=== PATIENT | female | born 1965 | race Caucasian/White ===

== ENCOUNTER 2018-12-25 23:46 | Inpatient (IN) | payer OTHER ==
[~2018-12-25] VITALS: Ht 162.6 cm; Wt 62.2 kg
[~2018-12-25 23:46] MED LIST: ALLO300T2 PO; FER325 PO; FOLI-49 PO; LEVE750T70 PO; LORA-1026 PO; MULT1CAP20 PO; OMEP20CA16 PO; PHEN100C PO; SERT-165 PO; SEVE800T7 PO; THIA50TA7 PO
[2018-12-26] MEDS ORDERED: LORAZEPAM 2 MG INJ IV STA (00:01)
[2018-12-26] MEDS ORDERED: SOD CHLORIDE 0.9% 1,000 ML IV STA (00:25)
--- NOTE | 2018-12-26 03:24 | ERD ---
ER Documentation Chief Complaint Chief Complaint bib ra from home for altered, no trauma as per fire department, HPI This is a 53-year-old patient with a history of seizure disorder who was brought in for altered mental status. The patient is here with her mom who says that they were at a local doctor's office clinic and patient was going in for a checkup, the patient's mom left the room for a brief period and came back to the room and the patient was acting altered. The patient was very confused and not making any sense. The patient did not know where she was or who the patient's mom was or where she was. She did have alcohol today. Denies any drug use per mom. Patient is not combative or acting grossly intoxicated however she is on making any sense. The mom states that the patient got a letter today stating she is going to be cut off from food stamps and was completely stressed out about this issue. ROS All systems reviewed and are negative except as per history of present illness. Medications Home Meds Reported Medications Multivitamins* (Multivitamin*) 1 Udcap Capsule, 1 TAB PO DAILY, TAB 09/13/14 Folic Acid* (Folic Acid*) 1 Mg Tablet, 1 MG PO DAILY, TAB 09/13/14 Levetiracetam* (Keppra*) 750 Mg Tablet, 1500 MG PO BID, TAB 09/13/14 Phenytoin* Sodium Extended (Dilantin*) 100 Mg Capsule, 100 MG PO BID 04/13/12 Allergies Allergies: Coded Allergies: No Known Allergy (Unverified , 09/13/14) PMhx/Soc History of Surgery: No Anesthesia Reaction: No Hx Neurological Disorder: No Hx Respiratory Disorders: No Hx Cardiac Disorders: No Hx Psychiatric Problems: No Hx Miscellaneous Medical Probl: No Hx Alcohol Use: Yes Hx Substance Use: Yes Hx Tobacco Use: No Smoking Status: Never smoker FmHx Family History: No coronary disease Physical Exam Vitals Vital Signs Date Temp Pulse Resp B/P (MAP) Pulse Ox O2 O2 Flow FiO2 Time Delivery Rate 12/26/18 106 18 147/92 98 02:33 (110) 12/26/18 98.6 112 26 147/103 100 Room Air 00:47 (118) 12/26/18 98.6 131 26 147/103 100 00:02 (118) 12/26/18 97.7 122 17 123/103 99 00:00 (110) Physical Exam Const: Well-developed, well-nourished Head: Atraumatic, normocephalic Eyes: Normal Conjunctiva, PERRLA, EOMI, normal sclera, no nystagmus ENT: Normal External Ears, Nose and Mouth, moist mucus membranes. Neck: Full range of motion. No meningismus, no lymphadenopathy. Resp: Clear to auscultation bilaterally, no wheezing, rhonchi, rales Cardio: Regular rate and rhythm, no murmurs, S1 S2 present Abd: Soft, non tender x 4, non distended. Normal bowel sounds, no guarding or rebound, no pulsitile abdominal masses or bruits Skin: No petechiae or rashes, no ecchymosis , no maculopapular rash Back: No midline or flank tenderness Ext: No cyanosis, or edema, FROM x 4, normal inspection, neurovascularly intact x 4 Neur: Awake and alert, STR 5/5 x 4, sensation intact x 4, no focal findings, cerebellum intact Psych: Patient is having complete inappropriate answers to questions that make no sense whatsoever, word salad/but has clear speech no slurring, she will follow commands Result Diagram: 12/26/18 0050 12/26/18 0050 Results 24 hrs Laboratory Tests Test 12/26/18 00:50 White Blood Count 7.4 10^3/ul Red Blood Count 3.38 10^6/ul Hemoglobin 11.8 g/dl Hematocrit 32.6 % Mean Corpuscular Volume 96.4 fl Mean Corpuscular Hemoglobin 34.9 pg Mean Corpuscular Hemoglobin Concent 36.2 g/dl Red Cell Distribution Width 12.2 % Platelet Count 205 10^3/UL Mean Platelet Volume 10.5 fl Immature Granulocytes % 0.400 % Neutrophils % 66.8 % Lymphocytes % 23.1 % Monocytes % 7.6 % Eosinophils % 1.4 % Basophils % 0.7 % Nucleated Red Blood Cells % 0.0 /100WBC Immature Granulocytes # 0.030 10^3/ul Neutrophils # 5.0 10^3/ul Lymphocytes # 1.7 10^3/ul Monocytes # 0.6 10^3/ul Eosinophils # 0.1 10^3/ul Basophils # 0.1 10^3/ul Nucleated Red Blood Cells # 0.0 10^3/ul Prothrombin Time 13.7 Sec Prothrombin Time Ratio 1.1 INR International Normalized Ratio 1.04 Activated Partial Thromboplast Time 25.6 Sec Sodium Level 127 mmol/L Potassium Level 3.8 mmol/L Chloride Level 84 mmol/L Carbon Dioxide Level 26 mmol/L Anion Gap 17 Blood Urea Nitrogen 10 mg/dl Creatinine 0.81 mg/dl Est Glomerular Filtrat Rate mL/min > 60 mL/min Glucose Level 107 mg/dl Calcium Level 8.9 mg/dl Total Bilirubin 0.7 mg/dl Direct Bilirubin 0.00 mg/dl Indirect Bilirubin 0.7 mg/dl Aspartate Amino Transf (AST/SGOT) 91 IU/L Alanine Aminotransferase (ALT/SGPT) 27 IU/L Alkaline Phosphatase 172 IU/L Troponin I < 0.012 ng/ml Total Protein 8.2 g/dl Albumin 4.7 g/dl Globulin 3.50 g/dl Albumin/Globulin Ratio 1.34 Salicylates Level 1.1 mg/dl Acetaminophen Level < 10.0 ug/ml Ethyl Alcohol Level < 10.0 mg/dl Current Medications Medications Dose Sig/Elver Start Time Status Last (Trade) Ordered Route PRN Stop Time Admin Dose Reason Admin Lorazepam 1 mg ONCE STAT 12/26/18 DC 12/26/18 (Ativan) IV 00:01 00:46 12/26/18 00:03 Sodium 1,000 ml @ Q1H STAT 12/26/18 DC 12/26/18 Chloride 1,000 mls/hr IV 00:25 00:47 12/26/18 01:24 Procedures/[place] [id number] Radiology Main Line: [phone] DIAGNOSTIC IMAGING REPORT Patient: MARTHA CENTENO : 1965 Age: 53 Sex: F MR #: [id number] DOS: 12/26/18 0001 Ordering MD: CARLTON CHADWICK DO Location: E/R Room/Bed: PROCEDURE: CT brain without contrast. CLINICAL INDICATION: Altered mental status. TECHNIQUE: CT scan of the brain was performed on a multi-detector high- resolution CT scanner. Contiguous axial images were obtained from the skull base to the vertex without intravenous contrast. Coronal and sagittal reformatted images were also obtained. Images were reviewed on the PACS workstation. DICOM images are available. One or more of the following dose reduction techniques were used: - Automated exposure control. - Adjustment of the mA and/or kV according to patient size. - Use of iterative reconstruction technique. Exam CTD/vol = 38.81 mGy. Total exam DLP = 797.83 mGy-cm. COMPARISON: 09/13/2014. FINDINGS: The ventricles and cortical sulci are prominent consistent with mild to moderate age related volume loss. There are patchy areas of low attenuation within the periventricular and subcortical white matter consistent with mild to moderate chronic ischemic changes secondary to small vessel disease. There is no mass effect or midline shift. There is no intracranial hemorrhage or abnormal extra- axial collection. There are atherosclerotic calcifications within bilateral distal internal carotid arteries. The calvarium is intact. There is no evidence of fracture. Visualized paranasal sinuses and mastoid air cells are clear. IMPRESSION: No acute intracranial abnormality identified. Mild to moderate age related volume loss and chronic ischemic white matter disease. Cerebral atherosclerosis. .Julio Wang MD, MD Date Time Electronically viewed and signed by .Julio Wang MD, MD on 12/26/2018 01:34 .T/ CC: CARLTON CHADWICK DO [id number] [place] [address] Radiology Main Line: [phone] DIAGNOSTIC IMAGING REPORT Patient: MARTHA CENTENO : 1965 Age: 53 Sex: F MR #: [id number] DOS: 12/26/18 0001 Ordering MD: CARLTON CHADWICK DO Location: E/R Room/Bed: PROCEDURE: Chest. CLINICAL INDICATION: Chest pain. TECHNIQUE: Single frontal view of the chest was obtained. COMPARISON: None. FINDINGS: The cardiac silhouette is within normal limits. The aortic arch is unremarkable. There is no focal consolidation, vascular congestion or pleural effusion. There is no pneumothorax. IMPRESSION: No evidence for active cardiopulmonary disease. .Julio Wang MD, Date Time Electronically viewed and signed by .Julio Wang MD, MD on 12/26/2018 01:29 .T/ CC: CARLTON CHADWICK DO [id number] Patient's alcohol level is 0 am still pending the urine drug screen which is in lab. She does have some mild hyponatremia but I do not think insulin to cause any mental status disturbance. She may just be on drugs. She is been observed here for a few hours and is still the same. She is asleep but arousable and has a same presentation as when she came in. Likely need to admit her to the hospital for observation to see if this clears up she may need further work-up/MRI. Is possible she could have had a seizure but by this time this postictal state would have gone away. Mom states that the patient's never had a postictal state like this before Departure Diagnosis: Primary Impression: Altered mental status Altered mental status type: unspecified Qualified Codes: R41.82 - Altered mental status, unspecified Condition: Stable CARLTON CHADWICK DO Dec 26, 2018 03:24
[2018-12-26] MEDS ORDERED: SOD CHLORIDE 0.9% 1,000 ML IV SCH (04:03)
[2018-12-26] MEDS ORDERED: ACETAMINOPHEN 325 MG TAB PO PRN (04:30)
[2018-12-26] MEDS ORDERED: NACL 0.9% 3 ML SYG IV SCH (04:30)
[2018-12-26] MEDS ORDERED: BISACODYL (EC) 5 MG TAB PO PRN (04:30)
[2018-12-26] MEDS ORDERED: DOCUSATE SODIUM 100 MG CAP PO PRN (04:30)
[2018-12-26] MEDS ORDERED: ONDANSETRON 4 MG INJ IV PRN ×2 (04:30)
[2018-12-26] MEDS ORDERED: LORAZEPAM 2 MG INJ IV ONE (05:00)
--- NOTE | 2018-12-26 05:49 | HP ---
Date/Time of Note Date/Time of Note DATE: 12/26/18 TIME: 05:43 Assessment/Plan VTE Prophylaxis SCD applied (from Nsg): Yes Pharmacological prophylaxis: NA/contraindicated Pharm contraindication: low risk/ambulating Lines/Catheters IV Catheter Type (from Nrsg): Saline Lock Assessment/Plan Hospital Course This is a 53 female being admitted to the telemetry floor for: 1. Acute encephalopathy: Secondary to CVA versus alcohol intoxication/withdrawal versus toxic metabolic versus versus Wernicke's encephalopathy versus other. Patient appears agitated and also not making any sense with her words. She was not able to be cooperative on neurological examination. Banana bag, high-dose thiamine x3 days. Will perform neuro checks every 4 hours. Fall precautions, seizure precautions. We will check Keppra and Dilantin levels. Resume Keppra and Dilantin. Will check an MRI of the brain, will add Ativan as needed and is patient's mother states she is claustrophobic. Will consult neurology . 2. Seizure disorder: Fall precautions, will check Keppra and Dilantin levels. Resume Keppra and Dilantin. 3. Hyponatremia: Patient does appear to be dehydrated. There may be a comp onent of SIADH as well and she is on Keppra. Will hydrate the patient with normal saline. Monitor sodium levels. In light of her seizure disorder will continue Keppra. Will monitor sodium levels. 4. Alcohol abuse: Patient reportedly drinks 1 pint of day. Also concern for possible Wernicke's encephalopathy. High-dose thiamine 500 mg IV every 8 hours x3 days. Banana bag. Folic acid and MVI once patient is tolerating p.o. 5. Normocytic anemia: We will check iron stores, no signs of bleeding. 6. Right eye blindness: Stable 7. DVT GI prophylaxis: SCDs, no GI prophylaxis indicated Further treatment strategy will be implemented as per clinical course Result Diagram: 12/26/18 00512/26/18 005 Results 24hrs Laboratory Tests Test 12/26/18 00:50 12/26/18 05:10 12/26/18 05:30 White Blood Count 7.4 Pending Red Blood Count 3.38 L Pending Hemoglobin 11.8 L Pending Hematocrit 32.6 L Pending Mean Corpuscular Volume 96.4 Pending Mean Corpuscular Hemoglobin 34.9 H Pending Mean Corpuscular Hemoglobin Concent 36.2 Pending Red Cell Distribution Width 12.2 Pending Platelet Count 205 Pending Mean Platelet Volume 10.5 H Pending Immature Granulocytes % 0.400 Neutrophils % 66.8 Lymphocytes % 23.1 Monocytes % 7.6 Eosinophils % 1.4 Basophils % 0.7 Nucleated Red Blood Cells % 0.0 Immature Granulocytes # 0.030 Neutrophils # 5.0 Lymphocytes # 1.7 Monocytes # 0.6 Eosinophils # 0.1 Basophils # 0.1 Nucleated Red Blood Cells # 0.0 Prothrombin Time 13.7 Prothrombin Time Ratio 1.1 INR International Normalized Ratio 1.04 Activated Partial Thromboplast Time 25.6 Sodium Level 127 L Potassium Level 3.8 Chloride Level 84 L Carbon Dioxide Level 26 Anion Gap 17 H Blood Urea Nitrogen 10 Creatinine 0.81 Est Glomerular Filtrat Rate mL/min > 60 Glucose Level 107 Calcium Level 8.9 Total Bilirubin 0.7 Direct Bilirubin 0.00 Indirect Bilirubin 0.7 Aspartate Amino Transf (AST/SGOT) 91 H Alanine Aminotransferase (ALT/SGPT) 27 Alkaline Phosphatase 172 H Troponin I < 0.012 Total Protein 8.2 H Albumin 4.7 Globulin 3.50 H Albumin/Globulin Ratio 1.34 Salicylates Level 1.1 L Acetaminophen Level < 10.0 L Ethyl Alcohol Level < 10.0 H Urine Color YELLOW Urine Clarity CLEAR Urine pH 6.0 Urine Specific [place] 1.004 Urine Ketones TRACE A Urine Nitrite NEGATIVE Urine Bilirubin NEGATIVE Urine Urobilinogen NEGATIVE Urine Leukocyte Esterase TRACE A Urine Microscopic RBC 2 Urine Microscopic WBC 6 H Urine Bacteria FEW A Urine Hemoglobin 1+ H Urine Glucose NEGATIVE Urine Total Protein NEGATIVE Urine Opiates Screen Negative Urine Barbiturates Negative Urine Amphetamines Screen Negative Urine Benzodiazepines Screen Negative Urine Cocaine Screen Negative Urine Cannabinoids Negative HPI/ROS Admit Date/Time Admit Date/Time Hx of Present Illness Chief complaint: Altered mental status Following history was obtained from the ED physician documentation as well as from the mother of the patient at the bedside as patient was not able to provide history given her altered status This is a 53-year-old patient with a history of seizure disorder who was brought in for altered mental status. The patient is here with her mom who says that they were at a local doctor's office clinic and patient was going in for a checkup, the patient's mom left the room for a brief period and came back to the room and the patient was acting altered. The patient was very confused and not making any sense. The patient did not know where she was or who the patient's mom was or where she was. She did drink alcohol at home which she does every day. She drinks normally a pint. Patient seemed to be more confused overnight and was brought into the emergency department. Denies any drug use per mom. Patient is not combative or acting grossly intoxicated however she is on making any sense. The mom does report that approximately 1 week ago she got a letter stating that she needs further documentation and a doctor's evaluation for her to continue to get food stamps. Her mother states that when this happened she went into a panic. She states that during the week she did have a seizure as well but then returned back to her normal state until last night. Mom does report that she drinks approximately 1 pint of alcohol daily Allergies: NKDA Medications: See MAR ROS Subjective hx not possible: other (Patient is altered, unable to provide history) PMH/Family/Social Past Medical History Seizure disorder, alcoholism, right eye blindness Medications Current Medications Sodium Chloride 1,000 ml @ 80 mls/hr [id number] IV ; Start 12/26/18 at 04:03; Stop 12/26/18 at 16:32 Ondansetron HCl (Zofran Inj) 4 mg ER BRIDGE PRN IV NAUSEA/VOMITING; Start 12/26/18 at 04:30; Stop 12/27/18 at 04:29 Acetaminophen (Tylenol Tab) 650 mg ER BRIDGE PRN PO .MILD PAIN 1-3 OR TEMP; Start 12/26/18 at 04:30; Stop 12/27/18 at 04:29 IV Flush (NS 3 ml) 3 ml PER PROTOCOL IV ; Start 12/26/18 at 04:30 Ondansetron HCl (Zofran Inj) 4 mg Q6H PRN IV NAUSEA/VOMITING; Start 12/26/18 at 04:30 Acetaminophen (Tylenol Tab) 650 mg Q6H PRN PO .PAIN 1-3 OR TEMP; Start 12/26/18 at 04:30 Docusate Sodium (Colace) 100 mg Q12H PRN PO .CONSTIPATION; Start 12/26/18 at 04:30 Bisacodyl (Dulcolax) 5 mg DAILY PRN PO .CONSTIPATION; Start 12/26/18 at 04:30 Coded Allergies: No Known Allergy (Unverified , 09/13/14) Past Surgical History Unknown Social History Alcohol Use: heavy Smoking Status: Never smoker Drug Use: none Exam/Review of Systems Vital Signs Vitals Vital Signs Date Temp Pulse Resp B/P (MAP) Pulse Ox O2 O2 Flow FiO2 Time Delivery Rate 12/26/18 110 16 134/96 96 Room Air 04:02 (109) 12/26/18 98.6 00:47 Exam Exam General: Patient is currently lying in bed, when she is awoken her words are clear but they are not making any sense. HEENT: Atraumatic, normocephalic. The pupils are equal, round and reactive, right eye blindness Neck: Supple with full range of motion. No rigidity or meningismus Chest: Nontender Lungs: Clear to auscultation bilaterally no crackles rales or wheezing Heart: Sinus tachycardia Abdomen: Soft , nontender, nondistended , bowel sounds are present. No guarding no rebound tenderness , No masses or organomegaly. No costovertebral temporal angle mass Extremities: Normal to inspection, no edema no cyanosis Neurologic: Lethargic but easily arousable. Her words are clear but she is not making any sense. She does appear to spontaneously move her bilateral upper and lower extremities but she does not follow commands and therefore is unable to participate in a full neurological examination. Psych:Unsure whether patient is responding to any internal stimuli. Additional Comments PROCEDURE: CT brain without contrast. CLINICAL INDICATION: Altered mental status. TECHNIQUE: CT scan of the brain was performed on a multi-detector high- resolution CT scanner. Contiguous axial images were obtained from the skull base to the vertex without intravenous contrast. Coronal and sagittal reformat rell images were also obtained. Images were reviewed on the PACS workstation. DICOM images are available. One or more of the following dose reduction techniques were used: - Automated exposure control. - Adjustment of the mA and/or kV according to patient size. - Use of iterative reconstruction technique. Exam CTD/vol = 38.81 mGy. Total exam DLP = 797.83 mGy-cm. COMPARISON: 09/13/2014. FINDINGS: The ventricles and cortical sulci are prominent consistent with mild to moderate age related volume loss. There are patchy areas of low attenuation within the periventricular and subcortical white matter consistent with mild to moderate chronic ischemic changes secondary to small vessel disease. There is no mass effect or midline shift. There is no intracranial hemorrhage or abnormal extra- axial collection. There are atherosclerotic calcifications within bilateral distal internal carotid arteries. The calvarium is intact. There is no evidence of fracture. Visualized paranas al sinuses and mastoid air cells are clear. IMPRESSION: No acute intracranial abnormality identified. Mild to moderate age related volume loss and chronic ischemic white matter disease. Cerebral atherosclerosis. .Julio Wang MD, MD Date Time Electronically viewed and signed by .Julio Wang MD, MD on 12/26/2018 01:34 .T/ CC: CARLTON CHADWICK DO [id number] PROCEDURE: Chest. CLINICAL INDICATION: Chest pain. TECHNIQUE: Single frontal view of the chest was obtained. COMPARISON: None. FINDINGS: The cardiac silhouette is within normal limits. The aortic arch is unremarkable. There is no focal consolidation, vascular congestion or pleural effusion. There is no pneumothorax. IMPRESSION: No evidence for active cardiopulmonary disease. .Julio Wang MD, MD Date Time Electronically viewed and signed by .Julio Wang MD, MD on 12/26/2018 01:29 .T/ CC: CARLTON CHADWICK DO [id number] ROSA HALL Dec 26, 2018 05:49
[2018-12-26] MEDS ORDERED: LORAZEPAM 2 MG INJ IV PRN ×3 (06:00)
[2018-12-26 06:15] VITALS: Ht 162.6 cm; Wt 62.2 kg
[2018-12-26 06:30] VITALS: BP 140/80; PULSE 100; RESP 18
[2018-12-26] MEDS ORDERED: SOD CHLORIDE 0.9% 500 ML IV ONE ×2 (08:00→16:30)
[2018-12-26 08:04] VITALS: BP 146/79; PULSE 119; RESP 18
[2018-12-26] MEDS ORDERED: THIAMINE 200 MG INJ IV SCH (08:30)
[2018-12-26] MEDS: LORAZEPAM 2 MG INJ IV PRN ×3 (08:40→20:06)
[2018-12-26] MEDS ORDERED: MULTIVITAMINS 10 ML, THIAMINE 100 MG, FOLIC ACID 1 MG in SOD CHLORIDE 0.9% 1,000 ML IVPB SCH (09:00)
--- NOTE | 2018-12-26 09:47 | CONSI ---
Assessment/Plan Assessment/Plan Assessment/Plan (Recall) 53 F c/ epilepsy and other comorbidities, who presents for evaluation of ams...for which neurology is consulted. The clinical picture could be consistent w/ an acute toxic-metabolic encephalopathy. Post-ictal encephalopathy is additionally considered A focal VOLTAGE TESTER process is less likely.. Na 127.. Dilantin <3 UA equivocal. UDS neg Head CT negative for acute pathology P: Add ammonia level, Mg, Phos Load Dilantin 1g iv x 1, then OK to continue maintenance Dilantin and Keppra per ops as writted MRI brain for further characterization when medically able Agree w/ thiamine/folate supplementation Monitor for S/Sx ETOH w/d Will follow clinically Consultation Date/Type/Reason Admit Date/Time Type of Consult Neurology Reason for Consultation ams Requesting Provider: ROSA HALL Date/Time of Note DATE: 12/26/18 TIME: 09:37 Hx of Present Illness This is a 53-year-old patient with a history of seizure disorder who was brought in for altered mental status. The patient is here with her mom who says that they were at a local doctor's office clinic and patient was going in for a checkup, the patient's mom left the room for a brief period and came back to the room and the patient was acting altered. The patient was very confused and not making any sense. The patient did not know where she was or who the patient's mom was or where she was. She did drink alcohol at home which she does every day. She drinks normally a pint. Patient seemed to be more confused overnight and was brought into the emergency department. Denies any drug use per mom. Patient is not combative or acting grossly intoxicated however she is on making any sense. The mom does report that approximately 1 week ago she got a letter stating that she needs further documentation and a doctor's evaluation for her to continue to get food stamps. Her mother states that when this happened she went into a panic. She states that during the week she did have a seizure as well but then returned back to her normal state until last night. Mom does report that she drinks approximately 1 pint of alcohol daily per HPI Objective Exam Vitals Vital Signs Date Temp Pulse Resp B/P (MAP) Pulse Ox O2 O2 Flow FiO2 Time Delivery Rate 12/26/18 99.0 119 18 146/79 93 Room Air 08:04 (101) Exam PE: Gen Appearance: No Apparent Distress HEENT: Normocephalic Cardiovascular: Regular rate Abdomen: Soft Extremities: Dry NE: The patient was alert, though disoriented. Language was fluently dysphasic. Fund of knowledge was limited.. Cranial nerve examination was limited by mental status. R pupil was opacified.. L pupil was reactive.. There was no afferent pupillary defect. Funduscopic examination was limited. Face was grossly symmetric, w/ present corneal reflexes. Tone was normal. Muscle bulk was normal. I did not see fasciculations. The patient was weak throughout... Coordination and gait testing was limited by mental status. Arm and leg reflexes were symmetric. Cobb's sign was absent. Plantar responses were flexor. Results Result Diagram: 12/26/18 0530 12/26/18 0530 Results 24hrs Laboratory Tests Test 12/26/18 00:50 12/26/18 05:10 12/26/18 05:30 White Blood Count 7.4 9.0 # Red Blood Count 3.38 L 3.06 L Hemoglobin 11.8 L 10.8 L Hematocrit 32.6 L 29.7 L Mean Corpuscular Volume 96.4 97.1 Mean Corpuscular Hemoglobin 34.9 H 35.3 H Mean Corpuscular Hemoglobin Concent 36.2 36.4 Red Cell Distribution Width 12.2 12.1 Platelet Count 205 180 Mean Platelet Volume 10.5 H 10.4 Immature Granulocytes % 0.400 0.300 Neutrophils % 66.8 73.1 Lymphocytes % 23.1 19.6 Monocytes % 7.6 6.0 Eosinophils % 1.4 0.4 Basophils % 0.7 0.6 Nucleated Red Blood Cells % 0.0 0.0 Immature Granulocytes # 0.030 0.030 Neutrophils # 5.0 6.5 Lymphocytes # 1.7 1.8 Monocytes # 0.6 0.5 Eosinophils # 0.1 0.0 Basophils # 0.1 0.1 Nucleated Red Blood Cells # 0.0 0.0 Prothrombin Time 13.7 Prothrombin Time Ratio 1.1 INR International Normalized Ratio 1.04 Activated Partial Thromboplast Time 25.6 Sodium Level 127 L 129 L Potassium Level 3.8 3.5 Chloride Level 84 L 90 L Carbon Dioxide Level 26 24 Anion Gap 17 H 15 H Blood Urea Nitrogen 10 9 Creatinine 0.81 0.66 Est Glomerular Filtrat Rate mL/min > 60 > 60 Glucose Level 107 89 Calcium Level 8.9 7.9 L Total Bilirubin 0.7 0.6 Direct Bilirubin 0.00 0.00 Indirect Bilirubin 0.7 0.6 Aspartate Amino Transf (AST/SGOT) 91 H 70 H Alanine Aminotransferase (ALT/SGPT) 27 24 Alkaline Phosphatase 172 H 133 H Troponin I < 0.012 Total Protein 8.2 H 6.8 # Albumin 4.7 3.8 Globulin 3.50 H 3.00 Albumin/Globulin Ratio 1.34 1.26 Salicylates Level 1.1 L Acetaminophen Level < 10.0 L Ethyl Alcohol Level < 10.0 H Urine Color YELLOW Urine Clarity CLEAR Urine pH 6.0 Urine Specific [place] 1.004 Urine Ketones TRACE A Urine Nitrite NEGATIVE Urine Bilirubin NEGATIVE Urine Urobilinogen NEGATIVE Urine Leukocyte Esterase TRACE A Urine Microscopic RBC 2 Urine Microscopic WBC 6 H Urine Bacteria FEW A Urine Hemoglobin 1+ H Urine Glucose NEGATIVE Urine Total Protein NEGATIVE Urine Opiates Screen Negative Urine Barbiturates Negative Urine Amphetamines Screen Negative Urine Benzodiazepines Screen Negative Urine Cocaine Screen Negative Urine Cannabinoids Negative Phenytoin (Dilantin) Level < 3.0 L Past Medical History reviewed Home Meds Reported Medications Allopurinol* (Allopurinol*) 300 Mg Tablet, 300 MG PO DAILY for 90 Days, #90 TAB 12/26/18 Thiamine* (Thiamine*) 50 Mg Tablet, 50 MG PO DAILY for 90 Days, #90 TAB 12/26/18 Omeprazole* (Omeprazole*) 20 Mg Capsule.dr, 20 MG PO BID for 90 Days, #180 CAP 12/26/18 Sertraline Hcl* (Sertraline Hcl*) 100 Mg Tablet, 100 MG PO QHS for 90 Days, #90 12/26/18 Loratadine (Allergy) 10 Mg Tablet, 10 MG PO DAILY for 30 Days, #30 TAB 12/26/18 Folic Acid* (Folic Acid*) 1 Mg Tablet, 1 MG PO DAILY, TAB 09/13/14 Levetiracetam* (Keppra*) 750 Mg Tablet, 1500 MG PO BID, TAB 09/13/14 Phenytoin* Sodium Extended (Dilantin*) 100 Mg Capsule, 100 MG PO BID 04/13/12 Discontinued Reported Medications Multivitamins* (Multivitamin*) 1 Udcap Capsule, 1 TAB PO DAILY, TAB 09/13/14 Medications Current Medications IV Flush (NS 3 ml) 3 ml PER PROTOCOL IV ; Start 12/26/18 at 04:30 Ondansetron HCl (Zofran Inj) 4 mg Q6H PRN IV NAUSEA/VOMITING; Start 12/26/18 at 04:30 Acetaminophen (Tylenol Tab) 650 mg Q6H PRN PO .PAIN 1-3 OR TEMP; Start 12/26/18 at 04:30 Docusate Sodium (Colace) 100 mg Q12H PRN PO .CONSTIPATION; Start 12/26/18 at 04:30 Bisacodyl (Dulcolax) 5 mg DAILY PRN PO .CONSTIPATION; Start 12/26/18 at 04:30 Lorazepam (Ativan) 1 mg [id number] PRN IV SEIZURES; Start 12/26/18 at 06:00 Lorazepam (Ativan) 1 mg ONCE PRN IV prior to MRI; Start 12/26/18 at 06:00 Multivitamins 10 ml/Thiamine HCl 100 mg/Folic Acid 1 mg/Sodium Chloride 1,011.2 ml @ 125 mls/ hr DAILY@09 IVPB ; Start 12/26/18 at 09:00; Stop 12/27/18 at 08:59 Lorazepam (Ativan) 1 mg Q4H PRN IV CONTROL WITHDRAWAL SYMPTOMS Last administered on 12/26/18at 08:40; Admin Dose 1 MG; Start 12/26/18 at 08:00 Levetiracetam (Keppra) 1,500 mg BID PO ; Start 12/26/18 at 09:00 Phenytoin (Dilantin) 100 mg BID PO ; Start 12/26/18 at 09:00 Thiamine HCl 500 mg/Sodium Chloride 255 ml @ 255 mls/hr Q8 IV ; Start 12/26/18 at 09:30; Stop 12/29/18 at 09:29 Potassium Chloride 100 ml @ 50 mls/hr Q2H IVPB ; Start 12/26/18 at 09:00; Stop 12/26/18 at 12:59 Allergies: Coded Allergies: No Known Allergy (Unverified , 09/13/14) Past Surgical History reviewed Social History Alcohol Use: heavy Smoking Status: Former smoker Drug Use: none MAEGAN TREADWELL Dec 26, 2018 09:46
[2018-12-26] MEDS ORDERED: PHENYTOIN 1,000 MG in SOD CHLORIDE 0.9% 100 ML IV ONE (10:00)
[2018-12-26] MEDS: THIAMINE 500 MG in SOD CHLORIDE 0.9% 250 ML IV SCH ×3 (10:13→23:12)
[2018-12-26] MEDS ORDERED: DIPHENHYDRAMINE 1%/ZINC 28.3 GM CR TOP PRN (10:30)
[2018-12-26] MEDS: POTASSIUM CHLORIDE 100 ML IVPB SCH ×2 (11:00→14:59)
[2018-12-26 11:28] VITALS: BP 125/69; PULSE 109; RESP 20
[2018-12-26] MEDS ORDERED: MAGNESIUM SULFATE 4 GM/100 ML 100 ML IVPB ONE (12:30)
[2018-12-26] MEDS: DIPHENHYDRAMINE 50 MG INJ IV PRN (13:13)
[2018-12-26] MEDS: CHLORDIAZEPOXIDE 25 MG CAP PO SCH ×2 (13:15→20:02)
[2018-12-26] MEDS: LEVETIRACETAM 750 MG TAB PO SCH ×2 (13:15→20:02)
[2018-12-26] MEDS: PHENYTOIN 100 MG CAP PO SCH ×2 (13:16→20:02)
[2018-12-26] MEDS ORDERED: POTASSIUM CHLORIDE (SR) 20 MEQ TAB PO STA (14:14)
--- NOTE | 2018-12-26 15:16 | PN ---
Date/Time of Note Date/Time of Note DATE: 12/26/18 TIME: 14:53 Assessment/Plan VTE Prophylaxis SCD applied (from Nsg): Yes Pharmacological prophylaxis: other Lines/Catheters IV Catheter Type (from Nrsg): Saline Lock Assessment/Plan Assessment/Plan 1. Acute encephalopathy, most likely metabolic-toxic etiology - Neurology on board and appreciate recommendations - MRI ordered but unable to do worksheet at this time since patient continues to ramble - continue treatment for alcohol withdrawal 2. Seizure disorder - continue on Dilantin and Keppra - seizure precautions - Ativan PRN 3. Hyponatremia - improving with NS - will continue monitoring 4. Alcoholic hepatitis - monitor LFTs - continue banana bag, thiamine and folate 5. Alcohol abuse - counseled about cessation - concern for possible Wernicke's encephalopathy - librium taper and monitor for DTs 6. Normocytic anemia - iron studies ordered - no need for transfusions at this time 7. Right eye blindness - Stable 8. Hypomag - replacing 9. Disposition - monitor for alcohol withdrawal - MRI pending Result Diagram: 12/26/18 0530 12/26/18 0530 Results 24hrs Laboratory Tests Test 12/26/18 00:50 12/26/18 05:10 12/26/18 05:30 12/26/18 10:04 White Blood Count 7.4 9.0 # Red Blood Count 3.38 L 3.06 L Hemoglobin 11.8 L 10.8 L Hematocrit 32.6 L 29.7 L Mean Corpuscular 96.4 97.1 Volume Mean Corpuscular 34.9 H 35.3 H Hemoglobin Mean Corpuscular 36.2 36.4 Hemoglobin Concent Red Cell 12.2 12.1 Distribution Width Platelet Count 205 180 Mean Platelet Volume 10.5 H 10.4 Immature 0.400 0.300 Granulocytes % Neutrophils % 66.8 73.1 Lymphocytes % 23.1 19.6 Monocytes % 7.6 6.0 Eosinophils % 1.4 0.4 Basophils % 0.7 0.6 Nucleated Red Blood 0.0 0.0 Cells % Immature 0.030 0.030 Granulocytes # Neutrophils # 5.0 6.5 Lymphocytes # 1.7 1.8 Monocytes # 0.6 0.5 Eosinophils # 0.1 0.0 Basophils # 0.1 0.1 Nucleated Red Blood 0.0 0.0 Cells # Prothrombin Time 13.7 Prothrombin Time 1.1 Ratio INR International 1.04 Normalized Ratio Activated 25.6 Partial Thromboplast Time Sodium Level 127 L 129 L Potassium Level 3.8 3.5 Chloride Level 84 L 90 L Carbon Dioxide Level 26 24 Anion Gap 17 H 15 H Blood Urea Nitrogen 10 9 Creatinine 0.81 0.66 Est Glomerular > 60 > 60 Filtrat Rate mL/min Glucose Level 107 89 Calcium Level 8.9 7.9 L Total Bilirubin 0.7 0.6 Direct Bilirubin 0.00 0.00 Indirect Bilirubin 0.7 0.6 Aspartate Amino 91 H 70 H Transf (AST/SGOT) Alanine 27 24 Aminotransferase (AL T/SGPT) Alkaline Phosphatase 172 H 133 H Troponin I < 0.012 Total Protein 8.2 H 6.8 # Albumin 4.7 3.8 Globulin 3.50 H 3.00 Albumin/Globulin 1.34 1.26 Ratio Salicylates Level 1.1 L Acetaminophen Level < 10.0 L Ethyl Alcohol Level < 10.0 H Urine Color YELLOW Urine Clarity CLEAR Urine pH 6.0 Urine Specific 1.004 [place] Urine Ketones TRACE A Urine Nitrite NEGATIVE Urine Bilirubin NEGATIVE Urine Urobilinogen NEGATIVE Urine Leukocyte TRACE A Esterase Urine Microscopic 2 RBC Urine Microscopic 6 H WBC Urine Bacteria FEW A Urine Hemoglobin 1+ H Urine Glucose NEGATIVE Urine Total Protein NEGATIVE Urine Opiates Screen Negative Urine Barbiturates Negative Urine Amphetamines Negative Screen Urine Negative Benzodiazepines Screen Urine Cocaine Screen Negative Urine Cannabinoids Negative Phenytoin (Dilantin) < 3.0 L Level Ammonia < 9 L Test 12/26/18 10:05 Phosphorus Level 4.2 Magnesium Level 0.8 *L Subjective 24 Hr Interval Summary Free Text/Dictation Patient has flight of ideas and rambling about DPSS and needing to make the appointment by May. Patient does admit to ETOH abuse and believes shes in the hospital due to seizures. She states she doesnt ambulate well and has to hold onto rails when ambulating. Exam/Review of Systems Exam Vitals Vital Signs Date Temp Pulse Resp B/P (MAP) Pulse Ox O2 O2 Flow FiO2 Time Delivery Rate 12/26/18 98.9 109 20 125/69 100 Room Air 11:28 (87) Exam General: Patient is currently lying in bed, no distress, disheveled Eye: right eye blindness, keeps eye closed Chest: Nontender Lungs: Clear to auscultation bilaterally no crackles rales or wheezing Heart: S1, S2, regular rhythm, tachycardia Abdomen: Soft , nontender, nondistended , bowel sounds are present. No guarding no rebound tenderness Extremities: Normal to inspection, no edema no cyanosis Results Results 24hrs Laboratory Tests Test 12/26/18 00:50 12/26/18 05:10 12/26/18 05:30 12/26/18 10:04 White Blood Count 7.4 9.0 # Red Blood Count 3.38 L 3.06 L Hemoglobin 11.8 L 10.8 L Hematocrit 32.6 L 29.7 L Mean Corpuscular 96.4 97.1 Volume Mean Corpuscular 34.9 H 35.3 H Hemoglobin Mean Corpuscular 36.2 36.4 Hemoglobin Concent Red Cell 12.2 12.1 Distribution Width Platelet Count 205 180 Mean Platelet Volume 10.5 H 10.4 Immature 0.400 0.300 Granulocytes % Neutrophils % 66.8 73.1 Lymphocytes % 23.1 19.6 Monocytes % 7.6 6.0 Eosinophils % 1.4 0.4 Basophils % 0.7 0.6 Nucleated Red Blood 0.0 0.0 Cells % Immature 0.030 0.030 Granulocytes # Neutrophils # 5.0 6.5 Lymphocytes # 1.7 1.8 Monocytes # 0.6 0.5 Eosinophils # 0.1 0.0 Basophils # 0.1 0.1 Nucleated Red Blood 0.0 0.0 Cells # Prothrombin Time 13.7 Prothrombin Time 1.1 Ratio INR International 1.04 Normalized Ratio Activated 25.6 Partial Thromboplast Time Sodium Level 127 L 129 L Potassium Level 3.8 3.5 Chloride Level 84 L 90 L Carbon Dioxide Level 26 24 Anion Gap 17 H 15 H Blood Urea Nitrogen 10 9 Creatinine 0.81 0.66 Est Glomerular > 60 > 60 Filtrat Rate mL/min Glucose Level 107 89 Calcium Level 8.9 7.9 L Total Bilirubin 0.7 0.6 Direct Bilirubin 0.00 0.00 Indirect Bilirubin 0.7 0.6 Aspartate Amino 91 H 70 H Transf (AST/SGOT) Alanine 27 24 Aminotransferase (AL T/SGPT) Alkaline Phosphatase 172 H 133 H Troponin I < 0.012 Total Protein 8.2 H 6.8 # Albumin 4.7 3.8 Globulin 3.50 H 3.00 Albumin/Globulin 1.34 1.26 Ratio Salicylates Level 1.1 L Acetaminophen Level < 10.0 L Ethyl Alcohol Level < 10.0 H Urine Color YELLOW Urine Clarity CLEAR Urine pH 6.0 Urine Specific 1.004 [place] Urine Ketones TRACE A Urine Nitrite NEGATIVE Urine Bilirubin NEGATIVE Urine Urobilinogen NEGATIVE Urine Leukocyte TRACE A Esterase Urine Microscopic 2 RBC Urine Microscopic 6 H WBC Urine Bacteria FEW A Urine Hemoglobin 1+ H Urine Glucose NEGATIVE Urine Total Protein NEGATIVE Urine Opiates Screen Negative Urine Barbiturates Negative Urine Amphetamines Negative Screen Urine Negative Benzodiazepines Screen Urine Cocaine Screen Negative Urine Cannabinoids Negative Phenytoin (Dilantin) < 3.0 L Level Ammonia < 9 L Test 12/26/18 10:05 Phosphorus Level 4.2 Magnesium Level 0.8 *L Medications Medication Current Medications IV Flush (NS 3 ml) 3 ml PER PROTOCOL IV ; Start 12/26/18 at 04:30 Ondansetron HCl (Zofran Inj) 4 mg Q6H PRN IV NAUSEA/VOMITING; Start 12/26/18 at 04:30 Acetaminophen (Tylenol Tab) 650 mg Q6H PRN PO .PAIN 1-3 OR TEMP; Start 12/26/18 at 04:30 Docusate Sodium (Colace) 100 mg Q12H PRN PO .CONSTIPATION; Start 12/26/18 at 04:30 Bisacodyl (Dulcolax) 5 mg DAILY PRN PO .CONSTIPATION; Start 12/26/18 at 04:30 Lorazepam (Ativan) 1 mg [id number] PRN IV SEIZURES; Start 12/26/18 at 06:00 Lorazepam (Ativan) 1 mg ONCE PRN IV prior to MRI; Start 12/26/18 at 06:00 Multivitamins 10 ml/Thiamine HCl 100 mg/Folic Acid 1 mg/Sodium Chloride 1,011.2 ml @ 125 mls/ hr DAILY@09 IVPB Last administered on 12/26/18at 14:07; Admin Dose 125 MLS/HR; Start 12/26/18 at 09:00; Stop 12/27/18 at 08:59 Lorazepam (Ativan) 1 mg Q4H PRN IV CONTROL WITHDRAWAL SYMPTOMS Last administered on 12/26/18at 14:38; Admin Dose 1 MG; Start 12/26/18 at 08:00 Levetiracetam (Keppra) 1,500 mg BID PO Last administered on 12/26/18 13:15; Admin Dose 1,500 MG; Start 12/26/18 at 09:00 Phenytoin (Dilantin) 100 mg BID PO Last administered on 12/26/18 13:16; Admin Dose 100 MG; Start 12/26/18 at 09:00 Thiamine HCl 500 mg/Sodium Chloride 255 ml @ 255 mls/hr Q8 IV Last administered on 12/26/18 10:13; Admin Dose 255 MLS/HR; Start 12/26/18 at 09:30; Stop 12/29/18 at 09:29 Diphenhydramine HCl (Benadryl) 25 mg Q6H PRN IV itching Last administered on 12/26/18 13:13; Admin Dose 25 MG; Start 12/26/18 at 10:30 Diphenhydramine/ Zinc Oxide (Benadryl 1% Cr) 1 applic Q6 PRN TOP itching; Start 12/26/18 at 10:30 Chlordiazepoxide (Librium) 25 mg TID PO Last administered on 12/26/18 13:15; Admin Dose 25 MG; Start 12/26/18 at 13:00 Magnesium Sulfate 100 ml @ 25 mls/hr ONCE ONCE IVPB Last administered on 12/26/18 13:13; Admin Dose 25 MLS/HR; Start 12/26/18 at 12:30; Stop 12/26/18 at 16:29 ESTEPHANIA ALFONSO MD Dec 26, 2018 15:16
[2018-12-26 16:00] VITALS: BP 82/53; PULSE 109; RESP 20
[2018-12-26] MEDS ORDERED: HALOPERIDOL 5 MG INJ IM PRN (16:30)
[2018-12-26 16:49] VITALS: BP 95/42; PULSE 109
[2018-12-26 19:37] VITALS: BP 100/62; PULSE 102; RESP 18
[2018-12-27] VITALS: BP 119/80; PULSE 96; RESP 20
[2018-12-27] MEDS: LORAZEPAM 2 MG INJ IV PRN ×4 (00:37→23:29)
[2018-12-27 04:54] VITALS: BP 114/63; PULSE 98; RESP 18
[2018-12-27] MEDS: THIAMINE 500 MG in SOD CHLORIDE 0.9% 250 ML IV SCH ×3 (05:00→21:09)
--- NOTE | 2018-12-27 06:50 | RADRPT ---
Echocardiogram Report Patient Name: Sharda CENTENO ID: [id number] : 1965 (53y 1m)Study Date: 12/26/2018 8:51:16 AM Gender: FAccession #: [id number] Tech: Krystian Elam [facility] Location: [address] Ref.Physician: ROSA HALL Height(Cm): BSA: Weight(Kg): Quality: AdequateOrder Physician: ROSA HALL Account #: Procedures: Echocardiographic Report: Transthoracic echocardiogram with complete 2D, M-Mode, and doppler examination. Indications: Possible Cerebrovascular Accident. Measurements: 2D/M Mode Doppler Measurement Value Normal Range Measurement Value Normal Range LVIDd MM 3.7 [ 3.8 - 5.2 ] cm AV Peak Nacho 1.9 [ 100.0 - 170.0 ] cm/sec LVIDs MM 2.5 [ 2.2 - 3.5 ] cm AV Peak PG 14.0 [ 2.0 - 9.0 ] mmHg LVPWd MM 1.1 [ 0.6 - 0.9 ] cm LVOT Peak Nacho 118.0 [ 70.0 - 110.0 ] cm/sec IVSd MM 1.1 [ 0.6 - 0.9 ] cm LVOT Peak PG 6.0 [ 2.0 - 6.0 ] mmHg AoR Diam MM 2.3 [ 2.3 - 3.1 ] cm MV E Peak Nacho 1.3 [ 60.0 - 130.0 ] cm/sec LA Dimen MM 3.2 MV E Peak PG 6.0 mmHg MV Peak Nacho 126.0 [ 60.0 - 130.0 ] cm/sec MV Peak PG 6.0 [ 1.0 - 10.0 ] mmHg MV Decel Time 176 [ 104 - 258 ] msec Lat E` Nacho 11.3 [ 10.0 - 15.0 ] cm/sec Med E` Nacho 16.6 cm/sec TR Peak Nacho 2.6 [ 100.0 - 280.0 ] cm/sec TR Peak PG 27.0 mmHg RVSP 30.0 [ 10.0 - 36.0 ] mmHg Findings: Left Ventricle: Normal left ventricular systolic function. Normal left ventricular cavity size. Left ventricular wall thickness upper limits of normal. Ejection fraction is visually estimated at 65 %. Tissue Doppler/Mitral Doppler indices are unable to be interpreted in this study. Right Ventricle: Normal right ventricular size. Normal right ventricular systolic function. Left Atrium: The left atrium is normal in size. Right Atrium: The right atrium is normal in size. Atrial Septum: Bubble study was performed with and with out valsalva indicating no evidence of intra atrial shunt. Mitral Valve: Grossly normal appearance of the mitral valve. No mitral valve regurgitation is seen. Aortic Valve: No significant aortic stenosis or insufficiency. Aortic valve not well visualized. Tricuspid Valve: Normal appearance of the tricuspid valve. Normal right ventricular systolic pressure. There is mild tricuspid regurgitation. Pericardium: Normal pericardium with no significant pericardial effusion. Aorta: Normal aortic root. IVC: Normal size and normal respiratory collapse consistent with normal right atrial pressure. Conclusions: LV wall thickness at the upper limits of normal. Normal left ventricular systolic function. No valvular abnormalities seen. Negative bubble study for right to left shunt. Electronically Signed By: Joaquina Calderon 2018-12-27 06:49:20 PDT
[2018-12-27 08:10] VITALS: BP 133/85; PULSE 103; RESP 22
[2018-12-27] MEDS: LEVETIRACETAM 750 MG TAB PO SCH ×2 (09:10→20:12)
[2018-12-27] MEDS: PHENYTOIN 100 MG CAP PO SCH ×2 (09:10→20:12)
[2018-12-27] MEDS: CHLORDIAZEPOXIDE 25 MG CAP PO SCH ×3 (09:10→20:12)
--- NOTE | 2018-12-27 09:14 | CONS ---
Assessment/Plan Assessment/Plan Assessment/Plan (Recall) 53 F c/ epilepsy and other comorbidities, who presents for evaluation of ams...for which neurology is consulted. The clinical picture could be consistent w/ an acute toxic-metabolic encephalopathy. Post-ictal encephalopathy is additionally considered A focal CHILD PSYCHOMETRIST process is less likely.. Na 127.. Mg 0.8 Dilantin <3 UA equivocal. UDS neg Head CT negative for acute pathology P: Continue Dilantin and Keppra per ops as written MRI brain for further characterization when medically able Agree w/ thiamine/folate supplementation Monitor for S/Sx ETOH w/d Will follow clinically Consultation Date/Type/Reason Admit Date/Time Dec 26, 2018 at 04:04 Type of Consult Neurology Reason for Consultation ams Requesting Provider: ROSA HALL Date/Time of Note DATE: 12/27/18 TIME: 09:13 24 HR Interval Summary Free Text/Dictation Continues acute care Exam/Review of Systems Exam Vitals Vital Signs Date Temp Pulse Resp B/P (MAP) Pulse Ox O2 O2 Flow FiO2 Time Delivery Rate 12/27/18 98.4 103 22 133/85 96 Room Air 08:10 (101) Intake and Output 12/26/18 12/26/18 12/27/18 1515:00 23:00 07:00 IntakeIntake Total 1975 ml 240 ml 555 ml OutputOutput Total 250 ml BalanceBalance 1725 ml 240 ml 555 ml Results Result Diagram: 12/27/18 0506 12/27/18 0506 Results 24hrs Laboratory Tests Test 12/26/18 10:04 12/26/18 10:05 12/27/18 05:06 Ammonia < 9 L Phosphorus Level 4.2 Magnesium Level 0.8 *L 1.9 White Blood Count 4.3 #L Red Blood Count 3.09 L Hemoglobin 10.5 L Hematocrit 31.7 L Mean Corpuscular Volume 102.6 H Mean Corpuscular Hemoglobin 34.0 H Mean Corpuscular Hemoglobin Concent 33.1 Red Cell Distribution Width 12.5 Platelet Count 170 Mean Platelet Volume 10.6 H Immature Granulocytes % 0.500 H Neutrophils % 61.5 Lymphocytes % 28.4 Monocytes % 7.5 Eosinophils % 1.4 Basophils % 0.7 Nucleated Red Blood Cells % 0.0 Immature Granulocytes # 0.020 Neutrophils # 2.6 Lymphocytes # 1.2 Monocytes # 0.3 Eosinophils # 0.1 Basophils # 0.0 Nucleated Red Blood Cells # 0.0 Sodium Level 142 Potassium Level 3.5 Chloride Level 108 # Carbon Dioxide Level 25 Anion Gap 9 # Blood Urea Nitrogen 15 Creatinine 0.86 Est Glomerular Filtrat Rate mL/min > 60 Glucose Level 116 Hemoglobin A1c 5.0 Calcium Level 8.0 L Iron Level 46 Total Iron Binding Capacity 155 L Percent Iron Saturation 30 Total Bilirubin 0.4 Direct Bilirubin 0.00 Indirect Bilirubin 0.4 Aspartate Amino Transf (AST/SGOT) 81 H Alanine Aminotransferase (ALT/SGPT) 23 Alkaline Phosphatase 115 Total Protein 6.2 Albumin 3.3 Globulin 2.90 Albumin/Globulin Ratio 1.13 Triglycerides Level 77 Cholesterol Level 200 LDL Cholesterol, Calculated 93 HDL Cholesterol 92 Cholesterol/HDL Ratio 2.1 Thyroid Stimulating Hormone (TSH) 4.860 H Phenytoin (Dilantin) Level 14.0 Medications Medication Current Medications IV Flush (NS 3 ml) 3 ml PER PROTOCOL IV ; Start 12/26/18 at 04:30 Ondansetron HCl (Zofran Inj) 4 mg Q6H PRN IV NAUSEA/VOMITING; Start 12/26/18 at 04:30 Acetaminophen (Tylenol Tab) 650 mg Q6H PRN PO .PAIN 1-3 OR TEMP; Start 12/26/18 at 04:30 Docusate Sodium (Colace) 100 mg Q12H PRN PO .CONSTIPATION; Start 12/26/18 at 04:30 Bisacodyl (Dulcolax) 5 mg DAILY PRN PO .CONSTIPATION; Start 12/26/18 at 04:30 Lorazepam (Ativan) 1 mg [id number] PRN IV SEIZURES; Start 12/26/18 at 06:00 Lorazepam (Ativan) 1 mg ONCE PRN IV prior to MRI; Start 12/26/18 at 06:00 Lorazepam (Ativan) 1 mg Q4H PRN IV CONTROL WITHDRAWAL SYMPTOMS Last administered on 12/27/18at 04:53; Admin Dose 1 MG; Start 12/26/18 at 08:00 Levetiracetam (Keppra) 1,500 mg BID PO Last administered on 12/27/18at 09:10; Admin Dose 1,500 MG; Start 12/26/18 at 09:00 Phenytoin (Dilantin) 100 mg BID PO Last administered on 12/27/18 09:10; Admin Dose 100 MG; Start 12/26/18 at 09:00 Thiamine HCl 500 mg/Sodium Chloride 255 ml @ 255 mls/hr Q8 IV Last administered on 12/27/18 05:00; Admin Dose 255 MLS/HR; Start 12/26/18 at 09:30; Stop 12/29/18 at 09:29 Diphenhydramine HCl (Benadryl) 25 mg Q6H PRN IV itching Last administered on 12/26/18at 13:13; Admin Dose 25 MG; Start 12/26/18 at 10:30 Diphenhydramine/ Zinc Oxide (Benadryl 1% Cr) 1 applic Q6 PRN TOP itching; Start 12/26/18 at 10:30 Chlordiazepoxide (Librium) 25 mg TID PO Last administered on 12/27/18 09:10; Admin Dose 25 MG; Start 12/26/18 at 13:00 Haloperidol (Haldol) 2 mg Q6H PRN IM agitation; Start 12/26/18 at 16:30 MAEGAN TREADWELL Dec 27, 2018 09:13
[2018-12-27 12:18] VITALS: BP 132/69; PULSE 106; RESP 21
--- NOTE | 2018-12-27 15:32 | PN ---
Date/Time of Note Date/Time of Note DATE: 12/27/18 TIME: 15:24 Assessment/Plan VTE Prophylaxis Risk score (from Ns)>0 risk: 1 SCD applied (from Ns): Yes Pharmacological prophylaxis: NA/contraindicated Pharm contraindication: low risk/ambulating Lines/Catheters IV [facility]from [facility] [place] Assessment/Plan Assessment/Plan 1. Acute encephalopathy, most likely metabolic-toxic etiology - Neurology on board and appreciate recommendations - MRI ordered for further evaluation - continue treatment for alcohol withdrawal 2. Seizure disorder - continue on Dilantin and Keppra - seizure precautions - Ativan PRN - Appreciate neurology consultation 3. Hyponatremia- resolved 4. Alcoholic hepatitis - monitor LFTs - continue MVI, folate, and thiamine 5. Alcohol abuse - counseled about cessation - concern for possible Wernicke's encephalopathy - Librium taper and monitor for DTs 6. Normocytic anemia - iron studies noted - no need for transfusions at this time 7. Right eye blindness - Stable 8. Disposition - Continue on Librium taper and MRI pending Result Diagram: 12/27/18 0506 12/27/18 0506 Results 24hrs Laboratory Tests Test 12/27/18 05:06 White Blood Count 4.3 #L Red Blood Count 3.09 L Hemoglobin 10.5 L Hematocrit 31.7 L Mean Corpuscular Volume 102.6 H Mean Corpuscular Hemoglobin 34.0 H Mean Corpuscular Hemoglobin Concent 33.1 Red Cell Distribution Width 12.5 Platelet Count 170 Mean Platelet Volume 10.6 H Immature Granulocytes % 0.500 H Neutrophils % 61.5 Lymphocytes % 28.4 Monocytes % 7.5 Eosinophils % 1.4 Basophils % 0.7 Nucleated Red Blood Cells % 0.0 Immature Granulocytes # 0.020 Neutrophils # 2.6 Lymphocytes # 1.2 Monocytes # 0.3 Eosinophils # 0.1 Basophils # 0.0 Nucleated Red Blood Cells # 0.0 Sodium Level 142 Potassium Level 3.5 Chloride Level 108 # Carbon Dioxide Level 25 Anion Gap 9 # Blood Urea Nitrogen 15 Creatinine 0.86 Est Glomerular Filtrat Rate mL/min > 60 Glucose Level 116 Hemoglobin A1c 5.0 Calcium Level 8.0 L Magnesium Level 1.9 Iron Level 46 Total Iron Binding Capacity 155 L Percent Iron Saturation 30 Total Bilirubin 0.4 Direct Bilirubin 0.00 Indirect Bilirubin 0.4 Aspartate Amino Transf (AST/SGOT) 81 H Alanine Aminotransferase (ALT/SGPT) 23 Alkaline Phosphatase 115 Total Protein 6.2 Albumin 3.3 Globulin 2.90 Albumin/Globulin Ratio 1.13 Triglycerides Level 77 Cholesterol Level 200 LDL Cholesterol, Calculated 93 HDL Cholesterol 92 Cholesterol/HDL Ratio 2.1 Thyroid Stimulating Hormone (TSH) 4.860 H Phenytoin (Dilantin) Level 14.0 Subjective 24 Hr Interval Summary Free Text/Dictation Patient less confused today but still with episodes of confabulation vs rambling. Exam/Review of Systems Exam Vitals Vital Signs Date Temp Pulse Resp B/P (MAP) Pulse Ox O2 O2 Flow FiO2 Time Delivery Rate 12/27/18 98.0 106 21 132/69 96 Room Air 12:18 (90) Intake and Output 12/26/18 12/26/18 12/27/18 1515:00 23:00 07:00 IntakeIntake Total 1975 ml 240 ml 555 ml OutputOutput Total 250 ml BalanceBalance 1725 ml 240 ml 555 ml Exam General: Patient is currently lying in bed, no distress, answering some questions appropriately Eye: right eye blindness Chest: Nontender Lungs: Clear to auscultation bilaterally no crackles rales or wheezing Heart: S1, S2, regular rhythm, tachycardia, no murmurs Abdomen: Soft , nontender, nondistended , bowel sounds are present. No guarding no rebound tenderness Extremities: Normal to inspection, no edema no cyanosis Results Results 24hrs Laboratory Tests Test 12/27/18 05:06 White Blood Count 4.3 #L Red Blood Count 3.09 L Hemoglobin 10.5 L Hematocrit 31.7 L Mean Corpuscular Volume 102.6 H Mean Corpuscular Hemoglobin 34.0 H Mean Corpuscular Hemoglobin Concent 33.1 Red Cell Distribution Width 12.5 Platelet Count 170 Mean Platelet Volume 10.6 H Immature Granulocytes % 0.500 H Neutrophils % 61.5 Lymphocytes % 28.4 Monocytes % 7.5 Eosinophils % 1.4 Basophils % 0.7 Nucleated Red Blood Cells % 0.0 Immature Granulocytes # 0.020 Neutrophils # 2.6 Lymphocytes # 1.2 Monocytes # 0.3 Eosinophils # 0.1 Basophils # 0.0 Nucleated Red Blood Cells # 0.0 Sodium Level 142 Potassium Level 3.5 Chloride Level 108 # Carbon Dioxide Level 25 Anion Gap 9 # Blood Urea Nitrogen 15 Creatinine 0.86 Est Glomerular Filtrat Rate mL/min > 60 Glucose Level 116 Hemoglobin A1c 5.0 Calcium Level 8.0 L Magnesium Level 1.9 Iron Level 46 Total Iron Binding Capacity 155 L Percent Iron Saturation 30 Total Bilirubin 0.4 Direct Bilirubin 0.00 Indirect Bilirubin 0.4 Aspartate Amino Transf (AST/SGOT) 81 H Alanine Aminotransferase (ALT/SGPT) 23 Alkaline Phosphatase 115 Total Protein 6.2 Albumin 3.3 Globulin 2.90 Albumin/Globulin Ratio 1.13 Triglycerides Level 77 Cholesterol Level 200 LDL Cholesterol, Calculated 93 HDL Cholesterol 92 Cholesterol/HDL Ratio 2.1 Thyroid Stimulating Hormone (TSH) 4.860 H Phenytoin (Dilantin) Level 14.0 Medications Medication Current Medications IV Flush (NS 3 ml) 3 ml PER PROTOCOL IV ; Start 12/26/18 at 04:30 Ondansetron HCl (Zofran Inj) 4 mg Q6H PRN IV NAUSEA/VOMITING; Start 12/26/18 at 04:30 Acetaminophen (Tylenol Tab) 650 mg Q6H PRN PO .PAIN 1-3 OR TEMP; Start 12/26/18 at 04:30 Docusate Sodium (Colace) 100 mg Q12H PRN PO .CONSTIPATION; Start 12/26/18 at 04:30 Bisacodyl (Dulcolax) 5 mg DAILY PRN PO .CONSTIPATION; Start 12/26/18 at 04:30 Lorazepam (Ativan) 1 mg [id number] PRN IV SEIZURES; Start 12/26/18 at 06:00 Lorazepam (Ativan) 1 mg Q4H PRN IV CONTROL WITHDRAWAL SYMPTOMS Last administered on 12/27/18at 04:53; Admin Dose 1 MG; Start 12/26/18 at 08:00 Levetiracetam (Keppra) 1,500 mg BID PO Last administered on 12/27/18at 09:10; Admin Dose 1,500 MG; Start 12/26/18 at 09:00 Phenytoin (Dilantin) 100 mg BID PO Last administered on 12/27/18at 09:10; Admin Dose 100 MG; Start 12/26/18 at 09:00 Thiamine HCl 500 mg/Sodium Chloride 255 ml @ 255 mls/hr Q8 IV Last administered on 12/27/18at 14:49; Admin Dose 255 MLS/HR; Start 12/26/18 at 09:30; Stop 12/29/18 at 09:29 Diphenhydramine HCl (Benadryl) 25 mg Q6H PRN IV itching Last administered on 12/26/18at 13:13; Admin Dose 25 MG; Start 12/26/18 at 10:30 Diphenhydramine/ Zinc Oxide (Benadryl 1% Cr) 1 applic Q6 PRN TOP itching; Start 12/26/18 at 10:30 Chlordiazepoxide (Librium) 25 mg TID PO Last administered on 12/27/18at 14:49; Admin Dose 25 MG; Start 12/26/18 at 13:00 Haloperidol (Haldol) 2 mg Q6H PRN IM agitation; Start 12/26/18 at 16:30 Lorazepam (Ativan) 2 mg ONCE PRN IV prior to MRI; Start 12/26/18 at 06:00 ESTEPHANIA ALFONSO MD Dec 27, 2018 15:32
[2018-12-27 15:34] VITALS: BP 112/73; PULSE 96; RESP 22
[2018-12-27 20:00] VITALS: BP 131/71; PULSE 101; RESP 20
[2018-12-28] VITALS (7 sets, daily range): BP systolic 100–123; BP diastolic 56–81; PULSE 63–112; RESP 18–19
[2018-12-28] MEDS: LORAZEPAM 2 MG INJ IV PRN ×2 (05:04→20:48)
[2018-12-28] MEDS: THIAMINE 500 MG in SOD CHLORIDE 0.9% 250 ML IV SCH ×2 (05:04→17:22)
[2018-12-28] MEDS: MULTIVITAMINS THERAPEUTIC TAB PO SCH (10:03)
[2018-12-28] MEDS: DIPHENHYDRAMINE 50 MG INJ IV PRN (10:03)
[2018-12-28] MEDS: LEVETIRACETAM 750 MG TAB PO SCH ×2 (10:03→20:48)
[2018-12-28] MEDS: FOLIC ACID 1 MG TAB PO SCH (10:03)
[2018-12-28] MEDS: PHENYTOIN 100 MG CAP PO SCH ×2 (10:04→20:48)
[2018-12-28] MEDS ORDERED: MAGNESIUM SULFATE 4 GM/100 ML 100 ML IVPB ONE (10:30)
--- NOTE | 2018-12-28 14:53 | PN ---
Date/Time of Note Date/Time of Note DATE: 12/28/18 TIME: 14:48 Assessment/Plan VTE Prophylaxis Risk score (from Nsg)>0 risk: 0 SCD applied (from Nsg): Yes Pharmacological prophylaxis: other Lines/Catheters IV Catheter Type (from Nrsg): Mid Line Assessment/Plan Assessment/Plan 1. Acute encephalopathy, most likely metabolic-toxic etiology - improving and patient making more sense but still with periods of confabulation - Neurology on board and appreciate recommendations - MRI results noted with no acute abnormalities - continue treatment for alcohol withdrawal 2. Seizure disorder - continue on Dilantin and Keppra - seizure precautions - Ativan PRN - Appreciate neurology consultation 3. Hyponatremia- resolved 4. Alcoholic hepatitis - monitor LFTs - continue MVI, folate, and thiamine 5. Alcohol abuse - counseled about cessation - concern for possible Wernicke's encephalopathy - Librium taper and monitor for DTs 6. Normocytic anemia - iron studies noted - no need for transfusions at this time 7. Right eye blindness - Stable 8. Disposition - Continue on Librium taper - SW consulted given family's concern about patients current living situation. Sister does not feel as if it is safe for patient to return to their parents house. Patient has been verbally abusive and afraid she may get physical especially when drinking. Explained we wont be able to commit her to a psych facility since has not elicited any behaviors that show she may be a danger to herself or others. Result Diagram: 12/28/1852012/28/18520 Results 24hrs Laboratory Tests Test 12/28/18 05:21 White Blood Count 4.9 Red Blood Count 2.88 L Hemoglobin 10.1 L Hematocrit 30.3 L Mean Corpuscular Volume 105.2 H Mean Corpuscular Hemoglobin 35.1 H Mean Corpuscular Hemoglobin Concent 33.3 Red Cell Distribution Width 12.7 Platelet Count 164 Mean Platelet Volume 11.0 H Immature Granulocytes % 0.400 Neutrophils % 57.8 Lymphocytes % 31.3 Monocytes % 7.2 Eosinophils % 2.5 Basophils % 0.8 Nucleated Red Blood Cells % 0.0 Immature Granulocytes # 0.020 Neutrophils # 2.8 Lymphocytes # 1.5 Monocytes # 0.4 Eosinophils # 0.1 Basophils # 0.0 Nucleated Red Blood Cells # 0.0 Sodium Level 138 Potassium Level 4.1 Chloride Level 105 Carbon Dioxide Level 24 Anion Gap 9 Blood Urea Nitrogen 12 Creatinine 0.74 Est Glomerular Filtrat Rate mL/min > 60 Glucose Level 103 Calcium Level 8.7 Magnesium Level 1.4 L Total Bilirubin 0.3 Direct Bilirubin 0.00 Indirect Bilirubin 0.3 Aspartate Amino Transf (AST/SGOT) 154 H Alanine Aminotransferase (ALT/SGPT) 53 Alkaline Phosphatase 118 Total Protein 6.7 Albumin 3.6 Globulin 3.10 Albumin/Globulin Ratio 1.16 Subjective 24 Hr Interval Summary Free Text/Dictation Patient denies any acute issues. Still groggy since given Ativan for MRI. No seizure activity appreciated. Long discussion held with sister and mother regarding discharge planning and patients overall condition. Exam/Review of Systems Exam Vitals Vital Signs Date Temp Pulse Resp B/P (MAP) Pulse Ox O2 O2 Flow FiO2 Time Delivery Rate 12/28/18 98.3 63 18 100/56 98 11:37 (71) 12/27/18 Room Air 15:34 Intake and Output 12/27/18 12/27/18 12/28/18 1515:00 23:00 07:00 IntakeIntake Total 720 ml 755 ml BalanceBalance 720 ml 755 ml Exam General: Patient is currently lying in bed, no distress, lethargic due to ativan Eye: right eye blindness Chest: Nontender Lungs: Clear to auscultation bilaterally no crackles rales or wheezing Heart: S1, S2, regular rhythm and rate, no murmurs Abdomen: Soft , nontender, nondistended , bowel sounds are present. No guarding no rebound tenderness Extremities: Normal to inspection, no edema no cyanosis Results Results 24hrs Laboratory Tests Test 12/28/18 05:21 White Blood Count 4.9 Red Blood Count 2.88 L Hemoglobin 10.1 L Hematocrit 30.3 L Mean Corpuscular Volume 105.2 H Mean Corpuscular Hemoglobin 35.1 H Mean Corpuscular Hemoglobin Concent 33.3 Red Cell Distribution Width 12.7 Platelet Count 164 Mean Platelet Volume 11.0 H Immature Granulocytes % 0.400 Neutrophils % 57.8 Lymphocytes % 31.3 Monocytes % 7.2 Eosinophils % 2.5 Basophils % 0.8 Nucleated Red Blood Cells % 0.0 Immature Granulocytes # 0.020 Neutrophils # 2.8 Lymphocytes # 1.5 Monocytes # 0.4 Eosinophils # 0.1 Basophils # 0.0 Nucleated Red Blood Cells # 0.0 Sodium Level 138 Potassium Level 4.1 Chloride Level 105 Carbon Dioxide Level 24 Anion Gap 9 Blood Urea Nitrogen 12 Creatinine 0.74 Est Glomerular Filtrat Rate mL/min > 60 Glucose Level 103 Calcium Level 8.7 Magnesium Level 1.4 L Total Bilirubin 0.3 Direct Bilirubin 0.00 Indirect Bilirubin 0.3 Aspartate Amino Transf (AST/SGOT) 154 H Alanine Aminotransferase (ALT/SGPT) 53 Alkaline Phosphatase 118 Total Protein 6.7 Albumin 3.6 Globulin 3.10 Albumin/Globulin Ratio 1.16 Medications Medication Current Medications IV Flush (NS 3 ml) 3 ml PER PROTOCOL IV ; Start 12/26/18 at 04:30 Ondansetron HCl (Zofran Inj) 4 mg Q6H PRN IV NAUSEA/VOMITING; Start 12/26/18 at 04:30 Acetaminophen (Tylenol Tab) 650 mg Q6H PRN PO .PAIN 1-3 OR TEMP; Start 12/26/18 at 04:30 Docusate Sodium (Colace) 100 mg Q12H PRN PO .CONSTIPATION; Start 12/26/18 at 04:30 Bisacodyl (Dulcolax) 5 mg DAILY PRN PO .CONSTIPATION; Start 12/26/18 at 04:30 Lorazepam (Ativan) 1 mg [id number] PRN IV SEIZURES; Start 12/26/18 at 06:00 Lorazepam (Ativan) 1 mg Q4H PRN IV CONTROL WITHDRAWAL SYMPTOMS Last administered on 12/28/18at 05:04; Admin Dose 1 MG; Start 12/26/18 at 08:00 Levetiracetam (Keppra) 1,500 mg BID PO Last administered on 12/28/18at 10:03; A dmin Dose 1,500 MG; Start 12/26/18 at 09:00 Phenytoin (Dilantin) 100 mg BID PO Last administered on 12/28/18at 10:04; Admin Dose 100 MG; Start 12/26/18 at 09:00 Thiamine HCl 500 mg/Sodium Chloride 255 ml @ 255 mls/hr Q8 IV Last administered on 12/28/18at 05:04; Admin Dose 255 MLS/HR; Start 12/26/18 at 09:30; Stop 12/29/18 at 09:29 Diphenhydramine HCl (Benadryl) 25 mg Q6H PRN IV itching Last administered on 12/28/18at 10:03; Admin Dose 25 MG; Start 12/26/18 at 10:30 Diphenhydramine/ Zinc Oxide (Benadryl 1% Cr) 1 applic Q6 PRN TOP itching; Start 12/26/18 at 10:30 Haloperidol (Haldol) 2 mg Q6H PRN IM agitation; Start 12/26/18 at 16:30 Multivitamins Therapeutic (Theragran) 1 tab DAILY PO Last administered on 12/28/18at 10:03; Admin Dose 1 TAB; Start 12/28/18 at 09:00 Folic Acid (Folic Acid) 1 mg DAILY PO Last administered on 12/28/18at 10:03; Admin Dose 1 MG; Start 12/28/18 at 09:00 Chlordiazepoxide (Librium) 25 mg BID PO ; Start 12/28/18 at 21:00 ESTEPHANIA ALFONSO MD Dec 28, 2018 14:53
[2018-12-28] MEDS: CHLORDIAZEPOXIDE 25 MG CAP PO SCH (20:48)
[2018-12-29] VITALS (7 sets, daily range): BP systolic 102–132; BP diastolic 57–92; PULSE 106–120; RESP 18–19
[2018-12-29] MEDS: THIAMINE 500 MG in SOD CHLORIDE 0.9% 250 ML IV SCH ×3 (01:18→18:01)
[2018-12-29] MEDS: LORAZEPAM 2 MG INJ IV PRN ×3 (02:15→20:46)
[2018-12-29] MEDS: MULTIVITAMINS THERAPEUTIC TAB PO SCH (09:29)
[2018-12-29] MEDS: FOLIC ACID 1 MG TAB PO SCH (09:29)
[2018-12-29] MEDS: PHENYTOIN 100 MG CAP PO SCH ×2 (09:29→20:46)
[2018-12-29] MEDS: LEVETIRACETAM 750 MG TAB PO SCH ×2 (09:29→20:46)
[2018-12-29] MEDS: CHLORDIAZEPOXIDE 25 MG CAP PO SCH ×2 (09:30→20:46)
--- NOTE | 2018-12-29 09:56 | CONS ---
Assessment/Plan Assessment/Plan Assessment/Plan (Recall) 53 F c/ epilepsy and other comorbidities, who presents for evaluation of ams...for which neurology is consulted. The clinical picture could be consistent w/ an acute toxic-metabolic encephalopathy...which has shown significant improvement. Post-ictal encephalopathy is additionally considered A focal ANALYTICAL MANAGER process is less likely.. Na 127.. Mg 0.8 Dilantin <3 UA equivocal. UDS neg MRI brain is negative for acute pathology P: Continue Dilantin and Keppra per ops as written; repeat Dilantin level today Agree w/ thiamine/folate supplementation Other medical management and supportive care per primary PT/OT/ST as necessary Will follow clinically Consultation Date/Type/Reason Admit Date/Time Dec 26, 2018 at 04:04 Type of Consult Neurology Reason for Consultation ams Requesting Provider: ROSA HALL Date/Time of Note DATE: 12/29/18 TIME: 09:54 24 HR Interval Summary Free Text/Dictation s/p MRI brain Exam/Review of Systems Exam Vitals Vital Signs Date Temp Pulse Resp B/P (MAP) Pulse Ox O2 O2 Flow FiO2 Time Delivery Rate 12/29/18 98.2 120 19 120/79 96 07:55 (93) 12/29/18 Room Air 04:38 Intake and Output 12/28/18 12/28/18 12/29/18 1515:00 23:00 07:00 IntakeIntake Total 200 ml 255 ml BalanceBalance 200 ml 255 ml Results Result Diagram: 12/29/18 0525 12/29/18 0525 Results 24hrs Laboratory Tests Test 12/29/18 05:25 White Blood Count 5.2 Red Blood Count 2.65 L Hemoglobin 9.2 L Hematocrit 27.8 L Mean Corpuscular Volume 104.9 H Mean Corpuscular Hemoglobin 34.7 H Mean Corpuscular Hemoglobin Concent 33.1 Red Cell Distribution Width 13.0 Platelet Count 172 Mean Platelet Volume 10.8 H Immature Granulocytes % 0.400 Neutrophils % 55.0 Lymphocytes % 31.4 Monocytes % 8.5 Eosinophils % 3.5 Basophils % 1.2 Nucleated Red Blood Cells % 0.0 Immature Granulocytes # 0.020 Neutrophils # 2.9 Lymphocytes # 1.6 Monocytes # 0.4 Eosinophils # 0.2 Basophils # 0.1 Nucleated Red Blood Cells # 0.0 Sodium Level 138 Potassium Level 4.0 Chloride Level 107 Carbon Dioxide Level 25 Anion Gap 6 Blood Urea Nitrogen 12 Creatinine 1.01 H Est Glomerular Filtrat Rate mL/min 57 L Glucose Level 119 Calcium Level 8.8 Magnesium Level 2.0 Total Bilirubin 0.2 Direct Bilirubin 0.00 Indirect Bilirubin 0.2 Aspartate Amino Transf (AST/SGOT) 72 H Alanine Aminotransferase (ALT/SGPT) 42 Alkaline Phosphatase 104 Total Protein 6.0 L Albumin 3.1 L Globulin 2.90 Albumin/Globulin Ratio 1.06 Medications Medication Current Medications IV Flush (NS 3 ml) 3 ml PER PROTOCOL IV ; Start 12/26/18 at 04:30 Ondansetron HCl (Zofran Inj) 4 mg Q6H PRN IV NAUSEA/VOMITING; Start 12/26/18 at 04:30 Acetaminophen (Tylenol Tab) 650 mg Q6H PRN PO .PAIN 1-3 OR TEMP; Start 12/26/18 at 04:30 Docusate Sodium (Colace) 100 mg Q12H PRN PO .CONSTIPATION; Start 12/26/18 at 04:30 Bisacodyl (Dulcolax) 5 mg DAILY PRN PO .CONSTIPATION; Start 12/26/18 at 04:30 Lorazepam (Ativan) 1 mg [id number] PRN IV SEIZURES; Start 12/26/18 at 06:00 Lorazepam (Ativan) 1 mg Q4H PRN IV CONTROL WITHDRAWAL SYMPTOMS Last administered on 12/29/18at 02:15; Admin Dose 1 MG; Start 12/26/18 at 08:00 Levetiracetam (Keppra) 1,500 mg BID PO Last administered on 12/29/18at 09:29; Admin Dose 1,500 MG; Start 12/26/18 at 09:00 Phenytoin (Dilantin) 100 mg BID PO Last administered on 12/29/18at 09:29; Admin Dose 100 MG; Start 12/26/18 at 09:00 Diphenhydramine HCl (Benadryl) 25 mg Q6H PRN IV itching Last administered on 12/28/18at 10:03; Admin Dose 25 MG; Start 12/26/18 at 10:30 Diphenhydramine/ Zinc Oxide (Benadryl 1% Cr) 1 applic Q6 PRN TOP itching; Start 12/26/18 at 10:30 Haloperidol (Haldol) 2 mg Q6H PRN IM agitation; Start 12/26/18 at 16:30 Multivitamins Therapeutic (Theragran) 1 tab DAILY PO Last administered on 12/29/18 09:29; Admin Dose 1 TAB; Start 12/28/18 at 09:00 Folic Acid (Folic Acid) 1 mg DAILY PO Last administered on 12/29/18 09:29; Admin Dose 1 MG; Start 12/28/18 at 09:00 Chlordiazepoxide (Librium) 25 mg BID PO Last administered on 12/29/18 09:30; Admin Dose 25 MG; Start 12/28/18 at 21:00 Thiamine HCl 500 mg/Sodium Chloride 255 ml @ 255 mls/hr Q8H IV Last administered on 12/29/18 09:47; Admin Dose 255 MLS/HR; Start 12/29/18 at 01:00 MAEGAN TREADWELL Dec 29, 2018 09:56
--- NOTE | 2018-12-29 11:18 | PN ---
Date/Time of Note Date/Time of Note DATE: 12/29/18 TIME: 11:18 Assessment/Plan VTE Prophylaxis Risk score (from Ns)>0 risk: 1 SCD applied (from Ns): No SCD contraindicated: low risk/ambulating Pharmacological prophylaxis: NA/contraindicated Pharm contraindication: low risk/ambulating Lines/Catheters IV [facility] (from [facility] Peripheral IV Assessment/Plan Assessment/Plan 1. Acute encephalopathy, most likely metabolic-toxic etiology - continues to improve - Neurology on board and appreciate recommendations - MRI results noted with no acute abnormalities - continue treatment for alcohol withdrawal with steroid taper and MVI 2. Seizure disorder - continue on Dilantin and Keppra. Levels within normal limits - seizure precautions - Ativan PRN - Appreciate neurology consultation 3. Hyponatremia- resolved 4. Alcoholic hepatitis - monitor LFTs - continue MVI, folate, and thiamine 5. Alcohol abuse - counseled about cessation - concern for possible Wernicke's encephalopathy - Librium taper and monitor for DTs 6. Normocytic anemia - iron studies noted - no need for transfusions at this time 7. Right eye blindness - Stable 8. Disposition - Continue on Librium taper - SW consulted given family's concern about patients current living situation. Sister does not feel as if it is safe for patient to return to their parents house. Patient has been verbally abusive and afraid she may get physical especially when drinking. Explained we wont be able to commit her to a psych facility since has not elicited any behaviors that show she may be a danger to herself or others. Result Diagram: 12/29/18 0525 12/29/18 0525 Results 24hrs Laboratory Tests Test 12/29/18 05:25 12/29/18 10:32 White Blood Count 5.2 Red Blood Count 2.65 L Hemoglobin 9.2 L Hematocrit 27.8 L Mean Corpuscular Volume 104.9 H Mean Corpuscular Hemoglobin 34.7 H Mean Corpuscular Hemoglobin Concent 33.1 Red Cell Distribution Width 13.0 Platelet Count 172 Mean Platelet Volume 10.8 H Immature Granulocytes % 0.400 Neutrophils % 55.0 Lymphocytes % 31.4 Monocytes % 8.5 Eosinophils % 3.5 Basophils % 1.2 Nucleated Red Blood Cells % 0.0 Immature Granulocytes # 0.020 Neutrophils # 2.9 Lymphocytes # 1.6 Monocytes # 0.4 Eosinophils # 0.2 Basophils # 0.1 Nucleated Red Blood Cells # 0.0 Sodium Level 138 Potassium Level 4.0 Chloride Level 107 Carbon Dioxide Level 25 Anion Gap 6 Blood Urea Nitrogen 12 Creatinine 1.01 H Est Glomerular Filtrat Rate mL/min 57 L Glucose Level 119 Calcium Level 8.8 Magnesium Level 2.0 Total Bilirubin 0.2 Direct Bilirubin 0.00 Indirect Bilirubin 0.2 Aspartate Amino Transf (AST/SGOT) 72 H Alanine Aminotransferase (ALT/SGPT) 42 Alkaline Phosphatase 104 Total Protein 6.0 L Albumin 3.1 L Globulin 2.90 Albumin/Globulin Ratio 1.06 Phenytoin (Dilantin) Level 7.7 L Subjective 24 Hr Interval Summary Free Text/Dictation Patient resting comfortably. no acute issues noted. Exam/Review of Systems Exam Vitals Vital Signs Date Temp Pulse Resp B/P (MAP) Pulse Ox O2 O2 Flow FiO2 Time Delivery Rate 12/29/18 98.2 120 19 120/79 96 07:55 (93) 12/29/18 Room Air 04:38 Intake and Output 12/28/18 12/28/18 12/29/18 1515:00 23:00 07:00 IntakeIntake Total 200 ml 255 ml BalanceBalance 200 ml 255 ml Exam General: Patient is currently lying in bed, no distress, lethargic due to Ativan Eye: right eye blindness Chest: Nontender Lungs: Clear to auscultation bilaterally no crackles rales or wheezing Heart: S1, S2, regular rhythm and rate, no murmurs Abdomen: Soft , nontender, nondistended , bowel sounds are present. No guarding no rebound tenderness Extremities: Normal to inspection, no edema no cyanosis Results Results 24hrs Laboratory Tests Test 12/29/18 05:25 12/29/18 10:32 White Blood Count 5.2 Red Blood Count 2.65 L Hemoglobin 9.2 L Hematocrit 27.8 L Mean Corpuscular Volume 104.9 H Mean Corpuscular Hemoglobin 34.7 H Mean Corpuscular Hemoglobin Concent 33.1 Red Cell Distribution Width 13.0 Platelet Count 172 Mean Platelet Volume 10.8 H Immature Granulocytes % 0.400 Neutrophils % 55.0 Lymphocytes % 31.4 Monocytes % 8.5 Eosinophils % 3.5 Basophils % 1.2 Nucleated Red Blood Cells % 0.0 Immature Granulocytes # 0.020 Neutrophils # 2.9 Lymphocytes # 1.6 Monocytes # 0.4 Eosinophils # 0.2 Basophils # 0.1 Nucleated Red Blood Cells # 0.0 Sodium Level 138 Potassium Level 4.0 Chloride Level 107 Carbon Dioxide Level 25 Anion Gap 6 Blood Urea Nitrogen 12 Creatinine 1.01 H Est Glomerular Filtrat Rate mL/min 57 L Glucose Level 119 Calcium Level 8.8 Magnesium Level 2.0 Total Bilirubin 0.2 Direct Bilirubin 0.00 Indirect Bilirubin 0.2 Aspartate Amino Transf (AST/SGOT) 72 H Alanine Aminotransferase (ALT/SGPT) 42 Alkaline Phosphatase 104 Total Protein 6.0 L Albumin 3.1 L Globulin 2.90 Albumin/Globulin Ratio 1.06 Phenytoin (Dilantin) Level 7.7 L Medications Medication Current Medications IV Flush (NS 3 ml) 3 ml PER PROTOCOL IV ; Start 12/26/18 at 04:30 Ondansetron HCl (Zofran Inj) 4 mg Q6H PRN IV NAUSEA/VOMITING; Start 12/26/18 at 04:30 Acetaminophen (Tylenol Tab) 650 mg Q6H PRN PO .PAIN 1-3 OR TEMP; Start 12/26/18 at 04:30 Docusate Sodium (Colace) 100 mg Q12H PRN PO .CONSTIPATION; Start 12/26/18 at 04 :30 Bisacodyl (Dulcolax) 5 mg DAILY PRN PO .CONSTIPATION; Start 12/26/18 at 04:30 Lorazepam (Ativan) 1 mg [id number] PRN IV SEIZURES; Start 12/26/18 at 06:00 Lorazepam (Ativan) 1 mg Q4H PRN IV CONTROL WITHDRAWAL SYMPTOMS Last administered on 12/29/18at 02:15; Admin Dose 1 MG; Start 12/26/18 at 08:00 Levetiracetam (Keppra) 1,500 mg BID PO Last administered on 12/29/18at 09:29; Admin Dose 1,500 MG; Start 12/26/18 at 09:00 Phenytoin (Dilantin) 100 mg BID PO Last administered on 12/29/18at 09:29; Admin Dose 100 MG; Start 12/26/18 at 09:00 Diphenhydramine HCl (Benadryl) 25 mg Q6H PRN IV itching Last administered on 12/28/18at 10:03; Admin Dose 25 MG; Start 12/26/18 at 10:30 Diphenhydramine/ Zinc Oxide (Benadryl 1% Cr) 1 applic Q6 PRN TOP itching; Start 12/26/18 at 10:30 Haloperidol (Haldol) 2 mg Q6H PRN IM agitation; Start 12/26/18 at 16:30 Multivitamins Therapeutic (Theragran) 1 tab DAILY PO Last administered on 12/29/18 09:29; Admin Dose 1 TAB; Start 12/28/18 at 09:00 Folic Acid (Folic Acid) 1 mg DAILY PO Last administered on 12/29/18 09:29; Admin Dose 1 MG; Start 12/28/18 at 09:00 Chlordiazepoxide (Librium) 25 mg BID PO Last administered on 12/29/18 09:30; Admin Dose 25 MG; Start 12/28/18 at 21:00 Thiamine HCl 500 mg/Sodium Chloride 255 ml @ 255 mls/hr Q8H IV Last adminis tered on 12/29/18at 09:47; Admin Dose 255 MLS/HR; Start 12/29/18 at 01:00 ESTEPHANIA ALFONSO MD Dec 29, 2018 11:18
[2018-12-30] MEDS: THIAMINE 500 MG in SOD CHLORIDE 0.9% 250 ML IV SCH ×3 (01:18→16:57)
[2018-12-30 04:54] VITALS: BP 122/82; PULSE 110; RESP 18
[2018-12-30 07:39] VITALS: BP 125/81; PULSE 109; RESP 18
[2018-12-30] MEDS: CHLORDIAZEPOXIDE 25 MG CAP PO SCH ×2 (08:16→21:05)
[2018-12-30] MEDS: MULTIVITAMINS THERAPEUTIC TAB PO SCH (08:16)
[2018-12-30] MEDS: PHENYTOIN 100 MG CAP PO SCH ×2 (08:17→21:05)
[2018-12-30] MEDS: LEVETIRACETAM 750 MG TAB PO SCH ×2 (08:17→21:05)
[2018-12-30] MEDS: FOLIC ACID 1 MG TAB PO SCH (08:17)
[2018-12-30] MEDS ORDERED: MAGNESIUM SULFATE 2 GM/50 ML 50 ML IVPB ONE (09:30)
--- NOTE | 2018-12-30 09:56 | PN ---
Date/Time of Note Date/Time of Note DATE: 12/30/18 TIME: 09:48 Assessment/Plan VTE [place] [facility] [place]: 1 [place] [facility] [place]CD contraindicated: patient refusal Pharmacological prophylaxis: other Lines/Catheters IV Catheter Type (from [facility] [place] Assessment/Plan Assessment/Plan 1. Acute encephalopathy, most likely metabolic-toxic etiology- improving - patient with more fluid train of thought - Neurology on board and appreciate recommendations - MRI results noted with no acute abnormalities - continue treatment for alcohol withdrawal with Librium taper 2. Seizure disorder - continue on Dilantin and Keppra. Levels within normal limits - seizure precautions - Ativan PRN - Appreciate neurology consultation 3. Hyponatremia- resolved 4. Alcoholic hepatitis- improving - monitor LFTs - continue MVI, folate, and thiamine 5. Alcohol abuse - counseled about cessation - concern for possible Wernicke's encephalopathy. was on high dose thiamine - Librium taper and monitor for DTs 6. Normocytic anemia - iron studies noted - no need for transfusions at this time 7. Right eye blindness - Stable 8. Disposition - Continue on Librium taper - SW on board and family's concerned about patients current living situation. Sister does not feel as if it is safe for patient to return to their parents house. Patient has been verbally abusive towards parents and sister is afraid she may get physical especially when drinking. CM consulted given families request for temporary SNF placement Result Diagram: 12/30/1852612/30/18526 Results 24hrs Laboratory Tests Test 12/29/18 10:32 12/30/18 05:27 Phenytoin (Dilantin) Level 7.7 L White Blood Count 5.4 Red Blood Count 2.80 L Hemoglobin 9.7 L Hematocrit 30.0 L Mean Corpuscular Volume 107.1 H Mean Corpuscular Hemoglobin 34.6 H Mean Corpuscular Hemoglobin Concent 32.3 Red Cell Distribution Width 13.3 Platelet Count 203 Mean Platelet Volume 10.8 H Immature Granulocytes % 0.200 Neutrophils % 46.2 Lymphocytes % 38.9 Monocytes % 9.7 Eosinophils % 3.9 Basophils % 1.1 Nucleated Red Blood Cells % 0.0 Immature Granulocytes # 0.010 Neutrophils # 2.5 Lymphocytes # 2.1 Monocytes # 0.5 Eosinophils # 0.2 Basophils # 0.1 Nucleated Red Blood Cells # 0.0 Sodium Level 140 Potassium Level 4.9 Chloride Level 108 Carbon Dioxide Level 25 Anion Gap 7 Blood Urea Nitrogen 20 Creatinine 0.83 Est Glomerular Filtrat Rate mL/min > 60 Glucose Level 97 Calcium Level 9.2 Magnesium Level 1.4 L Total Bilirubin 0.2 Direct Bilirubin 0.00 Indirect Bilirubin 0.2 Aspartate Amino Transf (AST/SGOT) 52 H Alanine Aminotransferase (ALT/SGPT) 39 Alkaline Phosphatase 113 Total Protein 6.4 Albumin 3.3 Globulin 3.10 Albumin/Globulin Ratio 1.06 Subjective 24 Hr Interval Summary Free Text/Dictation Patient states mentally she feels better but physically still tired. No acute overnight events. Exam/Review of Systems Exam Vitals Vital Signs Date Temp Pulse Resp B/P (MAP) Pulse Ox O2 O2 Flow FiO2 Time Delivery Rate 12/30/18 97.3 109 18 125/81 100 Room Air 07:39 (96) Intake and Output 12/29/18 12/29/18 12/30/18 1515:00 23:00 07:00 IntakeIntake Total 480 ml 255 ml BalanceBalance 480 ml 255 ml Exam General: Patient is currently lying in bed, no distress Eye: right eye blindness Chest: Nontender Lungs: Clear to auscultation bilaterally no crackles rales or wheezing Heart: S1, S2, regular rhythm and rate, no murmurs Abdomen: Soft , nontender, nondistended , bowel sounds are present. No guarding no rebound tenderness Extremities: Normal to inspection, no edema no cyanosis Results Results 24hrs Laboratory Tests Test 12/29/18 10:32 12/30/18 05:27 Phenytoin (Dilantin) Level 7.7 L White Blood Count 5.4 Red Blood Count 2.80 L Hemoglobin 9.7 L Hematocrit 30.0 L Mean Corpuscular Volume 107.1 H Mean Corpuscular Hemoglobin 34.6 H Mean Corpuscular Hemoglobin Concent 32.3 Red Cell Distribution Width 13.3 Platelet Count 203 Mean Platelet Volume 10.8 H Immature Granulocytes % 0.200 Neutrophils % 46.2 Lymphocytes % 38.9 Monocytes % 9.7 Eosinophils % 3.9 Basophils % 1.1 Nucleated Red Blood Cells % 0.0 Immature Granulocytes # 0.010 Neutrophils # 2.5 Lymphocytes # 2.1 Monocytes # 0.5 Eosinophils # 0.2 Basophils # 0.1 Nucleated Red Blood Cells # 0.0 Sodium Level 140 Potassium Level 4.9 Chloride Level 108 Carbon Dioxide Level 25 Anion Gap 7 Blood Urea Nitrogen 20 Creatinine 0.83 Est Glomerular Filtrat Rate mL/min > 60 Glucose Level 97 Calcium Level 9.2 Magnesium Level 1.4 L Total Bilirubin 0.2 Direct Bilirubin 0.00 Indirect Bilirubin 0.2 Aspartate Amino Transf (AST/SGOT) 52 H Alanine Aminotransferase (ALT/SGPT) 39 Alkaline Phosphatase 113 Total Protein 6.4 Albumin 3.3 Globulin 3.10 Albumin/Globulin Ratio 1.06 Medications Medication Current Medications IV Flush (NS 3 ml) 3 ml PER PROTOCOL IV ; Start 12/26/18 at 04:30 Ondansetron HCl (Zofran Inj) 4 mg Q6H PRN IV NAUSEA/VOMITING; Start 12/26/18 at 04:30 Acetaminophen (Tylenol Tab) 650 mg Q6H PRN PO .PAIN 1-3 OR TEMP; Start 12/26/18 at 04:30 Docusate Sodium (Colace) 100 mg Q12H PRN PO .CONSTIPATION; Start 12/26/18 at 04:30 Bisacodyl (Dulcolax) 5 mg DAILY PRN PO .CONSTIPATION; Start 12/26/18 at 04:30 Lorazepam (Ativan) 1 mg [id number] PRN IV SEIZURES; Start 12/26/18 at 06:00 Lorazepam (Ativan) 1 mg Q4H PRN IV CONTROL WITHDRAWAL SYMPTOMS Last administered on 12/29/18at 20:46; Admin Dose 1 MG; Start 12/26/18 at 08:00 Levetiracetam (Keppra) 1,500 mg BID PO Last administered on 12/30/18at 08:17; Admin Dose 1,500 MG; Start 12/26/18 at 09:00 Phenytoin (Dilantin) 100 mg BID PO Last administered on 12/30/18at 08:17; Admin Dose 100 MG; Start 12/26/18 at 09:00 Diphenhydramine HCl (Benadryl) 25 mg Q6H PRN IV itching Last administered on 12/28/18at 10:03; Admin Dose 25 MG; Start 12/26/18 at 10:30 Diphenhydramine/ Zinc Oxide (Benadryl 1% Cr) 1 applic Q6 PRN TOP itching; Start 12/26/18 at 10:30 Haloperidol (Haldol) 2 mg Q6H PRN IM agitation; Start 12/26/18 at 16:30 Multivitamins Therapeutic (Theragran) 1 tab DAILY PO Last administered on 12/30/18at 08:16; Admin Dose 1 TAB; Start 12/28/18 at 09:00 Folic Acid (Folic Acid) 1 mg DAILY PO Last administered on 12/30/18at 08:17; Admin Dose 1 MG; Start 12/28/18 at 09:00 Chlordiazepoxide (Librium) 25 mg BID PO Last administered on 12/30/18at 08:16; Admin Dose 25 MG; Start 12/28/18 at 21:00; Stop 12/30/18 at 23:55 Thiamine HCl 500 mg/Sodium Chloride 255 ml @ 255 mls/hr Q8H IV Last administered on 12/30/18at 08:19; Admin Dose 255 MLS/HR; Start 12/29/18 at 01:00 Chlordiazepoxide (Librium) 25 mg DAILY PO ; Start 12/31/18 at 09:00; Stop 01/01/19 at 23:59 Magnesium Sulfate 50 ml @ 25 mls/hr ONCE ONCE IVPB ; Start 12/30/18 at 09:30; Stop 12/30/18 at 11:29 ESTEPHANIA ALFONSO MD Dec 30, 2018 09:56
[2018-12-30 11:59] VITALS: BP 135/84; PULSE 110; RESP 18
[2018-12-30 15:31] VITALS: BP 121/81; PULSE 101; RESP 18
[2018-12-30 20:14] VITALS: BP 120/82; PULSE 85; RESP 20
[2018-12-31] VITALS (7 sets, daily range): BP systolic 100–131; BP diastolic 55–80; PULSE 71–103; RESP 16–19
[2018-12-31] MEDS ORDERED: CHLORDIAZEPOXIDE 25 MG CAP PO SCH (09:00)
[2018-12-31] MEDS: THIAMINE 100 MG TAB PO SCH (09:02)
[2018-12-31] MEDS: LEVETIRACETAM 750 MG TAB PO SCH ×2 (09:02→20:45)
[2018-12-31] MEDS: FOLIC ACID 1 MG TAB PO SCH (09:02)
[2018-12-31] MEDS: MULTIVITAMINS THERAPEUTIC TAB PO SCH (09:02)
[2018-12-31] MEDS: PHENYTOIN 100 MG CAP PO SCH ×3 (09:02→20:45)
--- NOTE | 2018-12-31 12:59 | CONS ---
Assessment/Plan Assessment/Plan Assessment/Plan (Recall) 53 F c/ epilepsy and other comorbidities, who presents for evaluation of ams...for which neurology is consulted. The clinical picture could be consistent w/ an acute toxic-metabolic encephalopathy...which has shown significant improvement. Post-ictal encephalopathy is additionally considered A focal INSPECTOR RAG SORTING process is less likely.. Na 127.. Mg 0.8 Dilantin <3 UA equivocal. UDS neg MRI brain is negative for acute pathology P: Increase Dilantin maintenance to 100mg tid; repeat level in ~ 1 week as an outpatient Continue Keppra per ops as written Agree w/ thiamine/folate supplementation Other medical management and supportive care per primary PT/OT/ST as necessary Will follow clinically Consultation Date/Type/Reason Admit Date/Time Dec 26, 2018 at 04:04 Type of Consult Neurology Reason for Consultation ams Requesting Provider: ROSA HALL Date/Time of Note DATE: 12/31/18 TIME: 12:58 24 HR Interval Summary Free Text/Dictation continues acute care Exam/Review of Systems Exam Vitals Vital Signs Date Temp Pulse Resp B/P (MAP) Pulse Ox O2 O2 Flow FiO2 Time Delivery Rate 12/31/18 98.0 87 16 131/80 100 08:04 (97) 12/30/18 Room Air 15:31 Intake and Output 12/30/18 12/30/18 12/31/18 1515:00 23:00 07:00 IntakeIntake Total 505 ml 225 ml BalanceBalance 505 ml 225 ml Results Result Diagram: 12/31/18 0504 12/30/18 0527 Results 24hrs Laboratory Tests Test 12/31/18 05:04 White Blood Count 5.5 Red Blood Count 2.90 L Hemoglobin 10.0 L Hematocrit 30.4 L Mean Corpuscular Volume 104.8 H Mean Corpuscular Hemoglobin 34.5 H Mean Corpuscular Hemoglobin Concent 32.9 Red Cell Distribution Width 13.1 Platelet Count 218 Mean Platelet Volume 10.3 Immature Granulocytes % 0.400 Neutrophils % 46.8 Lymphocytes % 39.4 Monocytes % 8.9 Eosinophils % 3.6 Basophils % 0.9 Nucleated Red Blood Cells % 0.0 Immature Granulocytes # 0.020 Neutrophils # 2.6 Lymphocytes # 2.2 Monocytes # 0.5 Eosinophils # 0.2 Basophils # 0.1 Nucleated Red Blood Cells # 0.0 Medications Medication Current Medications IV Flush (NS 3 ml) 3 ml PER PROTOCOL IV ; Start 12/26/18 at 04:30 Ondansetron HCl (Zofran Inj) 4 mg Q6H PRN IV NAUSEA/VOMITING; Start 12/26/18 at 04:30 Acetaminophen (Tylenol Tab) 650 mg Q6H PRN PO .PAIN 1-3 OR TEMP; Start 12/26/18 at 04:30 Docusate Sodium (Colace) 100 mg Q12H PRN PO .CONSTIPATION; Start 12/26/18 at 04:30 Bisacodyl (Dulcolax) 5 mg DAILY PRN PO .CONSTIPATION; Start 12/26/18 at 04:30 Lorazepam (Ativan) 1 mg [id number] PRN IV SEIZURES; Start 12/26/18 at 06:00 Lorazepam (Ativan) 1 mg Q4H PRN IV CONTROL WITHDRAWAL SYMPTOMS Last administered on 12/29/18at 20:46; Admin Dose 1 MG; Start 12/26/18 at 08:00 Levetiracetam (Keppra) 1,500 mg BID PO Last administered on 12/31/18at 09:02; Admin Dose 1,500 MG; Start 12/26/18 at 09:00 Phenytoin (Dilantin) 100 mg BID PO Last administered on 12/31/18at 09:02; Admin Dose 100 MG; Start 12/26/18 at 09:00 Diphenhydramine HCl (Benadryl) 25 mg Q6H PRN IV itching Last administered on 12/28/18at 10:03; Admin Dose 25 MG; Start 12/26/18 at 10:30 Diphenhydramine/ Zinc Oxide (Benadryl 1% Cr) 1 applic Q6 PRN TOP itching; Start 12/26/18 at 10:30 Haloperidol (Haldol) 2 mg Q6H PRN IM agitation; Start 12/26/18 at 16:30 Multivitamins Therapeutic (Theragran) 1 tab DAILY PO Last administered on 12/31/18at 09:02; Admin Dose 1 TAB; Start 12/28/18 at 09:00 Folic Acid (Folic Acid) 1 mg DAILY PO Last administered on 12/31/18at 09:02; Admin Dose 1 MG; Start 12/28/18 at 09:00 Chlordiazepoxide (Librium) 25 mg DAILY PO Last administered on 12/31/18at 09:02; Admin Dose 25 MG; Start 12/31/18 at 09:00; Stop 01/01/19 at 23:59 Thiamine HCl (Vitamin B1) 100 mg DAILY PO Last administered on 12/31/18at 09:02; Admin Dose 100 MG; Start 12/31/18 at 09:00 MAEGAN TREADWELL Dec 31, 2018 12:59
--- NOTE | 2018-12-31 13:00 | PN ---
Date/Time of Note Date/Time of Note DATE: 12/31/18 TIME: 13:00 Objective Vitals Vital Signs Date Temp Pulse Resp B/P (MAP) Pulse Ox O2 O2 Flow FiO2 Time Delivery Rate 12/31/18 98.0 87 16 131/80 100 08:04 (97) 12/30/18 Room Air 15:31 Intake and Output 12/30/18 12/30/18 12/31/18 1515:00 23:00 07:00 IntakeIntake Total 505 ml 225 ml BalanceBalance 505 ml 225 ml Results Result Diagram: 12/31/18 0504 12/30/18 0527 Medications Medications Current Medications IV Flush (NS 3 ml) 3 ml PER PROTOCOL IV ; Start 12/26/18 at 04:30 Ondansetron HCl (Zofran Inj) 4 mg Q6H PRN IV NAUSEA/VOMITING; Start 12/26/18 at 04:30 Acetaminophen (Tylenol Tab) 650 mg Q6H PRN PO .PAIN 1-3 OR TEMP; Start 12/26/18 at 04:30 Docusate Sodium (Colace) 100 mg Q12H PRN PO .CONSTIPATION; Start 12/26/18 at 04:30 Bisacodyl (Dulcolax) 5 mg DAILY PRN PO .CONSTIPATION; Start 12/26/18 at 04:30 Lorazepam (Ativan) 1 mg [id number] PRN IV SEIZURES; Start 12/26/18 at 06:00 Lorazepam (Ativan) 1 mg Q4H PRN IV CONTROL WITHDRAWAL SYMPTOMS Last administered on 12/29/18at 20:46; Admin Dose 1 MG; Start 12/26/18 at 08:00 Levetiracetam (Keppra) 1,500 mg BID PO Last administered on 12/31/18at 09:02; Admin Dose 1,500 MG; Start 12/26/18 at 09:00 Phenytoin (Dilantin) 100 mg BID PO Last administered on 12/31/18at 09:02; Admin Dose 100 MG; Start 12/26/18 at 09:00 Diphenhydramine HCl (Benadryl) 25 mg Q6H PRN IV itching Last administered on 12/28/18at 10:03; Admin Dose 25 MG; Start 12/26/18 at 10:30 Diphenhydramine/ Zinc Oxide (Benadryl 1% Cr) 1 applic Q6 PRN TOP itching; Start 12/26/18 at 10:30 Haloperidol (Haldol) 2 mg Q6H PRN IM agitation; Start 12/26/18 at 16:30 Multivitamins Therapeutic (Theragran) 1 tab DAILY PO Last administered on 12/31/18at 09:02; Admin Dose 1 TAB; Start 12/28/18 at 09:00 Folic Acid (Folic Acid) 1 mg DAILY PO Last administered on 12/31/18at 09:02; Admin Dose 1 MG; Start 12/28/18 at 09:00 Chlordiazepoxide (Librium) 25 mg DAILY PO Last administered on 12/31/18at 09:02; Admin Dose 25 MG; Start 12/31/18 at 09:00; Stop 01/01/19 at 23:59 Thiamine HCl (Vitamin B1) 100 mg DAILY PO Last administered on 12/31/18at 09:02; Admin Dose 100 MG; Start 12/31/18 at 09:00 Ferrous Sulfate (Ferrous Sulfate (Ec)) 325 mg DAILY PO ; Start 12/31/18 at 13:00 Chlordiazepoxide (Librium) 10 mg DAILY PO ; Start 01/01/19 at 09:00; Stop 01/01/19 at 09:01; Status UNV VTE Prophylaxis Risk score (from [facility])>0 risk: 1 SCD applied (from [facility] [place] No SCD contraindication: other Lines/Catheters IV Catheter Type: Ayala in Place: No Assessment/Plan Hospital Course Subjective Patient feeling well, family at bedside, all questions answered Objective Physical exam General: Patient is laying in bed and answers questions appropriately Mentation: Patient is alert and oriented 4, Head: Normocephalic atraumatic Eyes: EOMI, pupils reactive to light Neck: Supple, nontender, midline Respiratory: Clear to auscultation bilaterally Cardiovascular: regular rate, no obvious murmurs Gastrointestinal: non-tender to palpation, bowel sounds heard. Neurological: Moves all extremities spontaneously Skin: No new skin lesions Assessment/Plan 1. Acute encephalopathy, most likely metabolic-toxic etiology- improving - patient with more fluid train of thought - Neurology on board and appreciate recommendations - MRI results noted with no acute abnormalities - continue treatment for alcohol withdrawal, librium taper to finish soon 2. Seizure disorder - continue on Dilantin and Keppra. monitor levels - seizure precautions - Ativan PRN - Appreciate neurology consultation 3. Hyponatremia- resolved 4. Alcoholic hepatitis- improving - monitor LFTs - continue multi vit, folate, and thiamine 5. Alcohol abuse - counseled about cessation - concern for possible Wernicke's encephalopathy. was on high dose thiamine - Librium taper and monitor for DTs 6. Normocytic anemia, hx of iron deficiency - iron studies noted - no need for transfusions at this time -cont home ferrous sulfate 7. Right eye blindness - Stable 8. Disposition -SNF placement, very unstable at home. SOPHIE POWERS Dec 31, 2018 13:00
[2018-12-31] MEDS: FERROUS SULFATE (EC) 325 MG TAB PO SCH (14:32)
[2019-01-01 02:00] VITALS: BP 110/73; PULSE 100; RESP 16
[2019-01-01 08:12] VITALS: BP 125/82; PULSE 99
[2019-01-01] MEDS ORDERED: CHLORDIAZEPOXIDE 5 MG CAP PO SCH (09:00)
[2019-01-01] MEDS: FOLIC ACID 1 MG TAB PO SCH (09:05)
[2019-01-01] MEDS: PHENYTOIN 100 MG CAP PO SCH ×3 (09:05→20:49)
[2019-01-01] MEDS: THIAMINE 100 MG TAB PO SCH (09:05)
[2019-01-01] MEDS: FERROUS SULFATE (EC) 325 MG TAB PO SCH (09:05)
[2019-01-01] MEDS: LEVETIRACETAM 750 MG TAB PO SCH ×2 (09:05→20:51)
[2019-01-01] MEDS: MULTIVITAMINS THERAPEUTIC TAB PO SCH (09:05)
--- NOTE | 2019-01-01 12:04 | CONS ---
Assessment/Plan Assessment/Plan Assessment/Plan (Recall) 53 F c/ epilepsy and other comorbidities, who presents for evaluation of ams...for which neurology is consulted. The clinical picture could be consistent w/ an acute toxic-metabolic encephalopathy...which has shown significant improvement. Post-ictal encephalopathy is additionally considered A focal SAP DIRECTOR process is less likely.. Na 127.. Mg 0.8 Dilantin <3 UA equivocal. UDS neg MRI brain is negative for acute pathology P: Continue increased Dilantin maintenance: 100mg tid; repeat level in ~ 1 week as an outpatient Continue Keppra per ops as written Agree w/ thiamine/folate supplementation Other medical management and supportive care per primary PT/OT/ST as necessary Will follow clinically Consultation Date/Type/Reason Admit Date/Time Dec 26, 2018 at 04:04 Type of Consult Neurology Reason for Consultation ams Requesting Provider: ROSA HALL Date/Time of Note DATE: 01/01/19 TIME: 12:04 24 HR Interval Summary Free Text/Dictation Continues acute care Exam/Review of Systems Exam Vitals Vital Signs Date Temp Pulse Resp B/P (MAP) Pulse Ox O2 O2 Flow FiO2 Time Delivery Rate 01/01/19 98.5 99 125/82 100 Room Air 08:12 (96) 01/01/19 16 02:00 Intake and Output 12/31/18 12/31/18 01/01/19 1515:00 23:00 07:00 IntakeIntake Total 1000 ml 360 ml 320 ml BalanceBalance 1000 ml 360 ml 320 ml Results Result Diagram: 01/01/19 0442 01/01/19 0442 Results 24hrs Laboratory Tests Test 01/01/19 04:42 White Blood Count 4.8 Red Blood Count 2.91 L Hemoglobin 10.0 L Hematocrit 30.7 L Mean Corpuscular Volume 105.5 H Mean Corpuscular Hemoglobin 34.4 H Mean Corpuscular Hemoglobin Concent 32.6 Red Cell Distribution Width 13.3 Platelet Count 236 Mean Platelet Volume 10.7 H Immature Granulocytes % 0.600 H Neutrophils % 41.5 Lymphocytes % 43.4 Monocytes % 10.6 Eosinophils % 2.7 Basophils % 1.2 Nucleated Red Blood Cells % 0.0 Immature Granulocytes # 0.030 Neutrophils # 2.0 Lymphocytes # 2.1 Monocytes # 0.5 Eosinophils # 0.1 Basophils # 0.1 Nucleated Red Blood Cells # 0.0 Sodium Level 141 Potassium Level 5.4 H Chloride Level 108 Carbon Dioxide Level 24 Anion Gap 9 Blood Urea Nitrogen 29 H Creatinine 0.95 Est Glomerular Filtrat Rate mL/min > 60 Glucose Level 107 Calcium Level 10.0 Phosphorus Level 7.3 H Magnesium Level 1.5 L Phenytoin (Dilantin) Level 6.5 L Medications Medication Current Medications IV Flush (NS 3 ml) 3 ml PER PROTOCOL IV ; Start 12/26/18 at 04:30 Ondansetron HCl (Zofran Inj) 4 mg Q6H PRN IV NAUSEA/VOMITING; Start 12/26/18 at 04:30 Acetaminophen (Tylenol Tab) 650 mg Q6H PRN PO .PAIN 1-3 OR TEMP; Start 12/26/18 at 04:30 Docusate Sodium (Colace) 100 mg Q12H PRN PO .CONSTIPATION; Start 12/26/18 at 04:30 Bisacodyl (Dulcolax) 5 mg DAILY PRN PO .CONSTIPATION; Start 12/26/18 at 04:30 Lorazepam (Ativan) 1 mg [id number] PRN IV SEIZURES; Start 12/26/18 at 06:00 Lorazepam (Ativan) 1 mg Q4H PRN IV CONTROL WITHDRAWAL SYMPTOMS Last administered on 12/29/18at 20:46; Admin Dose 1 MG; Start 12/26/18 at 08:00 Levetiracetam (Keppra) 1,500 mg BID PO Last administered on 01/01/19at 09:05; Admin Dose 1,500 MG; Start 12/26/18 at 09:00 Diphenhydramine HCl (Benadryl) 25 mg Q6H PRN IV itching Last administered on 12/28/18at 10:03; Admin Dose 25 MG; Start 12/26/18 at 10:30 Diphenhydramine/ Zinc Oxide (Benadryl 1% Cr) 1 applic Q6 PRN TOP itching; Start 12/26/18 at 10:30 Haloperidol (Haldol) 2 mg Q6H PRN IM agitation; Start 12/26/18 at 16:30 Multivitamins Therapeutic (Theragran) 1 tab DAILY PO Last administered on 01/01/19at 09:05; Admin Dose 1 TAB; Start 12/28/18 at 09:00 Folic Acid (Folic Acid) 1 mg DAILY PO Last administered on 01/01/19 09:05; Admin Dose 1 MG; Start 12/28/18 at 09:00 Thiamine HCl (Vitamin B1) 100 mg DAILY PO Last administered on 01/01/19 09:05; Admin Dose 100 MG; Start 12/31/18 at 09:00 Ferrous Sulfate (Ferrous Sulfate (Ec)) 325 mg DAILY PO Last administered on 01/01/19 09:05; Admin Dose 325 MG; Start 12/31/18 at 13:00 Phenytoin (Dilantin) 100 mg TID PO Last administered on 01/01/19 09:05; Admin Dose 100 MG; Start 12/31/18 at 13:00 MAEGAN TREADWELL Jan 01, 2019 12:04
[2019-01-01] MEDS ORDERED: MAGNESIUM SULFATE 2 GM/50 ML 50 ML IVPB ONE (13:30)
[2019-01-01] MEDS ORDERED: MAGNESIUM OXIDE 400 MG TAB PO ONE (14:00)
[2019-01-01] MEDS ORDERED: SODIUM POLYSTYRENE 15 GM KIT (POWDER + SORBITOL) PO ONE (14:30)
[2019-01-01 14:41] VITALS: BP 101/52; PULSE 61; RESP 14
--- NOTE | 2019-01-01 14:46 | PN ---
Date/Time of Note Date/Time of Note DATE: 01/01/19 TIME: 14:44 Objective Vitals Vital Signs Date Temp Pulse Resp B/P (MAP) Pulse Ox O2 O2 Flow FiO2 Time Delivery Rate 01/01/19 98.8 61 14 101/52 97 Room Air 14:41 (68) Intake and Output 12/31/18 12/31/18 01/01/19 1515:00 23:00 07:00 IntakeIntake Total 1000 ml 360 ml 320 ml BalanceBalance 1000 ml 360 ml 320 ml Results Result Diagram: 01/01/19 0442 01/01/19 0442 Medications Medications Current Medications IV Flush (NS 3 ml) 3 ml PER PROTOCOL IV ; Start 12/26/18 at 04:30 Ondansetron HCl (Zofran Inj) 4 mg Q6H PRN IV NAUSEA/VOMITING; Start 12/26/18 at 04:30 Acetaminophen (Tylenol Tab) 650 mg Q6H PRN PO .PAIN 1-3 OR TEMP; Start 12/26/18 at 04:30 Docusate Sodium (Colace) 100 mg Q12H PRN PO .CONSTIPATION; Start 12/26/18 at 04:30 Bisacodyl (Dulcolax) 5 mg DAILY PRN PO .CONSTIPATION; Start 12/26/18 at 04:30 Lorazepam (Ativan) 1 mg [id number] PRN IV SEIZURES; Start 12/26/18 at 06:00 Lorazepam (Ativan) 1 mg Q4H PRN IV CONTROL WITHDRAWAL SYMPTOMS Last administered on 12/29/18at 20:46; Admin Dose 1 MG; Start 12/26/18 at 08:00 Levetiracetam (Keppra) 1,500 mg BID PO Last administered on 01/01/19at 09:05; Admin Dose 1,500 MG; Start 12/26/18 at 09:00 Diphenhydramine HCl (Benadryl) 25 mg Q6H PRN IV itching Last administered on 12/28/18at 10:03; Admin Dose 25 MG; Start 12/26/18 at 10:30 Diphenhydramine/ Zinc Oxide (Benadryl 1% Cr) 1 applic Q6 PRN TOP itching; Start 12/26/18 at 10:30 Haloperidol (Haldol) 2 mg Q6H PRN IM agitation; Start 12/26/18 at 16:30 Multivitamins Therapeutic (Theragran) 1 tab DAILY PO Last administered on 01/01/19 09:05; Admin Dose 1 TAB; Start 12/28/18 at 09:00 Folic Acid (Folic Acid) 1 mg DAILY PO Last administered on 01/01/19 09:05; Admin Dose 1 MG; Start 12/28/18 at 09:00 Thiamine HCl (Vitamin B1) 100 mg DAILY PO Last administered on 01/01/19 09:05; Admin Dose 100 MG; Start 12/31/18 at 09:00 Ferrous Sulfate (Ferrous Sulfate (Ec)) 325 mg DAILY PO Last administered on 01/01/19 09:05; Admin Dose 325 MG; Start 12/31/18 at 13:00 Phenytoin (Dilantin) 100 mg TID PO Last administered on 01/01/19 12:46; Admin Dose 100 MG; Start 12/31/18 at 13:00 VTE Prophylaxis Risk score (from [facility] [place]0 risk: 1 SCD applied (from [facility] [place]): No SCD contraindication: other Lines/Catheters IV Catheter Type: Ayala in Place: No Assessment/Plan Hospital Course Subjective Patient feeling well, now is refusing to go to snf facility Objective Physical exam General: Patient is laying in bed and answers questions appropriately Mentation: Patient is alert and oriented 4, Head: Normocephalic atraumatic Eyes: EOMI, pupils reactive to light Neck: Supple, nontender, midline Respiratory: Clear to auscultation bilaterally Cardiovascular: regular rate, no obvious murmurs Gastrointestinal: non-tender to palpation, bowel sounds heard. Neurological: Moves all extremities spontaneously Skin: No new skin lesions Assessment/Plan 1. Acute encephalopathy, most likely metabolic-toxic etiology- improving - patient with more fluid train of thought, however still having almost pre ssured speech, psychiatry has been consulted - Neurology on board and appreciate recommendations - MRI results noted with no acute abnormalities - continue treatment for alcohol withdrawal, librium tapered, now DC'd 2. Seizure disorder - continue on Dilantin and Keppra. monitor levels - seizure precautions - Ativan PRN - Appreciate neurology consultation 3. Hyponatremia- resolved Hyperkalemia -Unknown etiology, per neurology unlikely Keppra and Dilantin have issues with potassium, will give Kayexalate x1 -Continue monitoring potassium if continues to increase will need to consult nephrology -DC multivitamin for now 4. Alcoholic hepatitis- improving - monitor LFTs , folate, and thiamine 5. Alcohol abuse - counseled about cessation - concern for possible Wernicke's encephalopathy. was on high dose thiamine - Librium taper and monitor for DTs 6. Normocytic anemia, hx of iron deficiency - iron studies noted - no need for transfusions at this time -cont home ferrous sulfate 7. Right eye blindness - Stable 8. Disposition -SNF placement?, very unstable at home., However patient states that she never agreed to a snf facility which is very different in my conversation with the patient yesterday, psychiatry consulted possible need to speak to patient's sister and mother before discharge. Monitor potassium levels. SOPHIE POWERS Jan 01, 2019 14:46
--- NOTE | 2019-01-01 18:17 | PSY ---
Date/Time of Note Date/Time of Note DATE: 01/01/19 TIME: 18:13 Psychiatric Subjective Eval Consent Pt consented to telemedicine: No Subjective Evaluation Patient location: inpatient Chief Complaint: bib ra from home for altered, no trauma as per fire department, History of present illness Patient is a 53-year-old female with a history of seizure disorder . On a [id number] evaluation, patient reports feeling hopeless and helpless however she denies suicidal ideation and contracted for safety. Patient has long history of alcohol abuse. Discussed risk and benefits of sertraline and she verbalized understanding. Past psychiatric history Long history of depression Hospitalization: other Medical history Problems Medical Problems: (1) Altered mental status Status: Acute (2) Homeless Status: Acute (3) Hungry Status: Acute (4) Pain Status: Acute Allergies: Coded Allergies: No Known Allergy (Unverified , 09/13/14) Substance Abuse Substance abuse history: Yes (To abuse) Prior substance abuse treatmen: Yes Social History Marital status: other Psychiatric Objective Eval Review of Systems: Review of Systems: Not Applicable Physical Examination: Appetite: Decreased Energy: Decreased Interest: Decreased Mental Status Examination: Appearance: Bizarre Eye Contact: Fair Psychomotor Activity: Slow Behavior: Cooperative Speech: Soft AFFECT: Flat Mood: Depressed, Anxious Though Process: Linear On 72 hour hold: No Orientation: x4 Cognition: Alert Insight: Moderate Judgement: Moderate Attention Span: Distractible Laboratory Results Laboratory Tests Test 12/31/18 05:04 01/01/19 04:42 White Blood Count 5.5 10^3/ul 4.8 10^3/ul Red Blood Count 2.90 10^6/ul 2.91 10^6/ul Hemoglobin 10.0 g/dl 10.0 g/dl Hematocrit 30.4 % 30.7 % Mean Corpuscular Volume 104.8 fl 105.5 fl Mean Corpuscular Hemoglobin 34.5 pg 34.4 pg Mean Corpuscular Hemoglobin Concent 32.9 g/dl 32.6 g/dl Red Cell Distribution Width 13.1 % 13.3 % Platelet Count 218 10^3/UL 236 10^3/UL Mean Platelet Volume 10.3 fl 10.7 fl Immature Granulocytes % 0.400 % 0.600 % Neutrophils % 46.8 % 41.5 % Lymphocytes % 39.4 % 43.4 % Monocytes % 8.9 % 10.6 % Eosinophils % 3.6 % 2.7 % Basophils % 0.9 % 1.2 % Nucleated Red Blood Cells % 0.0 /100WBC 0.0 /100WBC Immature Granulocytes # 0.020 10^3/ul 0.030 10^3/ul Neutrophils # 2.6 10^3/ul 2.0 10^3/ul Lymphocytes # 2.2 10^3/ul 2.1 10^3/ul Monocytes # 0.5 10^3/ul 0.5 10^3/ul Eosinophils # 0.2 10^3/ul 0.1 10^3/ul Basophils # 0.1 10^3/ul 0.1 10^3/ul Nucleated Red Blood Cells # 0.0 10^3/ul 0.0 10^3/ul Sodium Level 141 mmol/L Potassium Level 5.4 mmol/L Chloride Level 108 mmol/L Carbon Dioxide Level 24 mmol/L Anion Gap 9 Blood Urea Nitrogen 29 mg/dl Creatinine 0.95 mg/dl Est Glomerular Filtrat Rate mL/min > 60 mL/min Glucose Level 107 mg/dl Calcium Level 10.0 mg/dl Phosphorus Level 7.3 mg/dl Magnesium Level 1.5 mg/dl Phenytoin (Dilantin) Level 6.5 ug/ml Assessment and Plan Assessment/Diagnosis Diagnosis Major depressive disorder severe recurrent without psychosis Recommendation/Plan Medication Management Zoloft 100 mg daily Multiple antipsychotics: No Psychotherapy Provide supportive therapy Discharge Disposition: Community Legal Status: Voluntary (Does not meet criteria for 5150 hold) AMBER NOBLE NP Jan 01, 2019 18:16
[2019-01-01 20:00] VITALS: BP 110/69; PULSE 114; RESP 18
[2019-01-01 23:57] VITALS: BP 93/68; PULSE 95
[2019-01-02 02:01] VITALS: BP 117/84; PULSE 89; RESP 16
[2019-01-02] MEDS ORDERED: PATIENT'S OWN MEDICATION TOP PRN (03:30)
[2019-01-02] MEDS ORDERED: HYDROCORTISONE 1% 28 GM CR TOP PRN (06:00)
[2019-01-02 08:00] VITALS: BP 108/60; PULSE 98; RESP 19
[2019-01-02] MEDS: FERROUS SULFATE (EC) 325 MG TAB PO SCH (08:31)
[2019-01-02] MEDS: LORATADINE 10 MG TAB PO SCH (08:32)
[2019-01-02] MEDS: MULTIVITAMINS THERAPEUTIC TAB PO SCH (08:32)
[2019-01-02] MEDS: FOLIC ACID 1 MG TAB PO SCH (08:32)
[2019-01-02] MEDS: THIAMINE 100 MG TAB PO SCH (08:33)
[2019-01-02] MEDS: SERTRALINE 100 MG TAB PO SCH (08:33)
[2019-01-02] MEDS: PHENYTOIN 100 MG CAP PO SCH ×3 (08:33→21:13)
[2019-01-02] MEDS: LEVETIRACETAM 750 MG TAB PO SCH ×2 (08:33→21:13)
[2019-01-02] MEDS ORDERED: PATIENT'S OWN MEDICATION PO SCH (09:00)
[2019-01-02] MEDS ORDERED: MAGNESIUM OXIDE 400 MG TAB PO ONE (09:30)
[2019-01-02 14:54] VITALS: BP 108/77; PULSE 97; RESP 18
--- NOTE | 2019-01-02 17:33 | PN ---
Date/Time of Note Date/Time of Note DATE: 01/02/19 TIME: 17:32 Objective Vitals Vital Signs Date Temp Pulse Resp B/P (MAP) Pulse Ox O2 O2 Flow FiO2 Time Delivery Rate 01/02/19 97.7 97 18 108/77 97 14:54 (87) 01/02/19 Room Air 08:00 Intake and Output 01/01/19 01/01/19 01/02/19 1515:00 23:00 07:00 IntakeIntake Total 118 ml BalanceBalance 118 ml Results Result Diagram: 01/02/19 0426 01/02/19 0426 Medications Medications Current Medications IV Flush (NS 3 ml) 3 ml PER PROTOCOL IV ; Start 12/26/18 at 04:30 Ondansetron HCl (Zofran Inj) 4 mg Q6H PRN IV NAUSEA/VOMITING; Start 12/26/18 at 04:30 Acetaminophen (Tylenol Tab) 650 mg Q6H PRN PO .PAIN 1-3 OR TEMP; Start 12/26/18 at 04:30 Docusate Sodium (Colace) 100 mg Q12H PRN PO .CONSTIPATION; Start 12/26/18 at 04:30 Bisacodyl (Dulcolax) 5 mg DAILY PRN PO .CONSTIPATION; Start 12/26/18 at 04:30 Lorazepam (Ativan) 1 mg [id number] PRN IV SEIZURES; Start 12/26/18 at 06:00 Lorazepam (Ativan) 1 mg Q4H PRN IV CONTROL WITHDRAWAL SYMPTOMS Last a dministered on 12/29/18at 20:46; Admin Dose 1 MG; Start 12/26/18 at 08:00 Levetiracetam (Keppra) 1,500 mg BID PO Last administered on 01/02/19at 08:33; Admin Dose 1,500 MG; Start 12/26/18 at 09:00 Diphenhydramine HCl (Benadryl) 25 mg Q6H PRN IV itching Last administered on 12/28/18at 10:03; Admin Dose 25 MG; Start 12/26/18 at 10:30 Diphenhydramine/ Zinc Oxide (Benadryl 1% Cr) 1 applic Q6 PRN TOP itching; Start 12/26/18 at 10:30 Haloperidol (Haldol) 2 mg Q6H PRN IM agitation; Start 12/26/18 at 16:30 Multivitamins Therapeutic (Theragran) 1 tab DAILY PO Last administered on 01/02/19 08:32; Admin Dose 1 TAB; Start 12/28/18 at 09:00 Folic Acid (Folic Acid) 1 mg DAILY PO Last administered on 01/02/19 08:32; Admin Dose 1 MG; Start 12/28/18 at 09:00 Thiamine HCl (Vitamin B1) 100 mg DAILY PO Last administered on 01/02/19 08:33; Admin Dose 100 MG; Start 12/31/18 at 09:00 Ferrous Sulfate (Ferrous Sulfate (Ec)) 325 mg DAILY PO Last administered on 01/02/19 08:31; Admin Dose 325 MG; Start 12/31/18 at 13:00 Phenytoin (Dilantin) 100 mg TID PO Last administered on 01/02/19at 13:48; Admin Dose 100 MG; Start 12/31/18 at 13:00 Sertraline HCl (Zoloft) 100 mg DAILY PO Last administered on 01/02/19 08:33; Admin Dose 100 MG; Start 01/02/19 at 09:00 Loratadine (Claritin) 10 mg DAILY PO Last administered on 01/02/19 08:32; Admin Dose 10 MG; Start 01/02/19 at 09:00 Hydrocortisone 1 applic TID PRN TOP ITCHING; Start 01/02/19 at 06:00 VTE Prophylaxis Risk score (from Ns)>0 risk: 1 SCD applied (from [facility] [place]): Yes Lines/Catheters IV Catheter Type: Ayala in Place: No Assessment/Plan Hospital Course Subjective Patient feeling well, Objective Physical exam General: Patient is laying in bed and answers questions appropriately Mentation: Patient is alert and oriented 4, Head: Normocephalic atraumatic Eyes: EOMI, pupils reactive to light Neck: Supple, nontender, midline Respiratory: Clear to auscultation bilaterally Cardiovascular: regular rate, no obvious murmurs Gastrointestinal: non-tender to palpation, bowel sounds heard. Neurological: Moves all extremities spontaneously Skin: No new skin lesions Assessment/Plan 1. Acute encephalopathy, most likely metabolic-toxic etiology- improving - patient with more fluid train of thought, however still having almost pressured speech, psychiatry has been consulted, patient has depression but able to make her own decisions. - Neurology on board and appreciate recommendations - MRI results noted with no acute abnormalities - continue treatment for alcohol withdrawal, librium tapered, now DC'd 2. Seizure disorder - continue on Dilantin and Keppra. monitor levels - seizure precautions - Ativan PRN - Appreciate neurology consultation 3. Hyponatremia- resolved Hyperkalemia -Unknown etiology, per neurology unlikely Keppra and Dilantin have issues with potassium, Kayexalate given x1 -Continue monitoring potassium if continues to increase will need to consult nephrology -DC multivitamin for now 4. Alcoholic hepatitis- improving - monitor LFTs , folate, and thiamine 5. Alcohol abuse - counseled about cessation - concern for possible Wernicke's encephalopathy. was on high dose thiamine - Librium taper and monitor for DTs 6. Normocytic anemia, hx of iron deficiency - iron studies noted - no need for transfusions at this time -cont home ferrous sulfate 7. Right eye blindness - Stable 8. Disposition -SNF placement?, very unstable at home., Monitor potassium levels before placement SOPHIE POWERS Jan 02, 2019 17:33
[2019-01-02 19:48] VITALS: BP 112/71; PULSE 103; RESP 17
[2019-01-03 01:34] VITALS: BP 100/68; PULSE 98; RESP 18
[2019-01-03 07:47] VITALS: BP 125/85; PULSE 98; RESP 18
[2019-01-03] MEDS: LORATADINE 10 MG TAB PO SCH ×2 (08:15→08:29)
[2019-01-03] MEDS: LEVETIRACETAM 750 MG TAB PO SCH ×2 (08:28→20:55)
[2019-01-03] MEDS: PHENYTOIN 100 MG CAP PO SCH ×3 (08:28→20:55)
[2019-01-03] MEDS: THIAMINE 100 MG TAB PO SCH (08:28)
[2019-01-03] MEDS: FOLIC ACID 1 MG TAB PO SCH (08:28)
[2019-01-03] MEDS: FERROUS SULFATE (EC) 325 MG TAB PO SCH (08:28)
[2019-01-03] MEDS: SERTRALINE 100 MG TAB PO SCH (08:28)
[2019-01-03] MEDS: DIPHENHYDRAMINE 50 MG INJ IV PRN (11:14)
--- NOTE | 2019-01-03 11:18 | CONS ---
Assessment/Plan Assessment/Plan Assessment/Plan (Recall) 53 F c/ epilepsy and other comorbidities, who presents for evaluation of ams...for which neurology is consulted. The clinical picture could be consistent w/ an acute toxic-metabolic encephalopathy...which has shown significant improvement. Post-ictal encephalopathy is additionally considered A focal [employer] process is less likely.. Na 127.. Mg 0.8 Dilantin <3 UA equivocal. UDS neg MRI brain is negative for acute pathology P: Dilantin 500mg iv x1 today, then continue increased Dilantin maintenance: 100mg tid Continue Keppra per ops as written Agree w/ thiamine/folate supplementation Other medical management and supportive care per primary PT/OT/ST as necessary Will follow clinically Consultation Date/Type/Reason Admit Date/Time Dec 26, 2018 at 04:04 Type of Consult Neurology Reason for Consultation ams Requesting Provider: ROSA HALL Date/Time of Note DATE: 01/03/19 TIME: 11:17 24 HR Interval Summary Free Text/Dictation Continues acute care Exam/Review of Systems Exam Vitals Vital Signs Date Temp Pulse Resp B/P (MAP) Pulse Ox O2 O2 Flow FiO2 Time Delivery Rate 01/03/19 97.9 98 18 125/85 100 07:47 (98) 01/02/19 Room Air 08:00 Intake and Output 01/02/19 01/02/19 01/03/19 1515:00 23:00 07:00 IntakeIntake Total 360 ml 520 ml BalanceBalance 360 ml 520 ml Results Result Diagram: 01/03/19 0434 01/03/19 0434 Results 24hrs Laboratory Tests Test 01/03/19 04:34 White Blood Count 4.7 L Red Blood Count 2.76 L Hemoglobin 9.5 L Hematocrit 29.3 L Mean Corpuscular Volume 106.2 H Mean Corpuscular Hemoglobin 34.4 H Mean Corpuscular Hemoglobin Concent 32.4 Red Cell Distribution Width 13.1 Platelet Count 265 # Mean Platelet Volume 10.8 H Immature Granulocytes % 0.200 Neutrophils % 35.9 L Lymphocytes % 48.1 Monocytes % 11.1 H Eosinophils % 3.0 Basophils % 1.7 Nucleated Red Blood Cells % 0.0 Immature Granulocytes # 0.010 Neutrophils # 1.7 Lymphocytes # 2.3 Monocytes # 0.5 Eosinophils # 0.1 Basophils # 0.1 Nucleated Red Blood Cells # 0.0 Sodium Level 139 Potassium Level 5.1 Chloride Level 104 Carbon Dioxide Level 27 Anion Gap 8 Blood Urea Nitrogen 33 H Creatinine 0.95 Est Glomerular Filtrat Rate mL/min > 60 Glucose Level 94 Calcium Level 9.8 Phosphorus Level 6.3 H Magnesium Level 1.3 L Medications Medication Current Medications IV Flush (NS 3 ml) 3 ml PER PROTOCOL IV ; Start 12/26/18 at 04:30 Ondansetron HCl (Zofran Inj) 4 mg Q6H PRN IV NAUSEA/VOMITING; Start 12/26/18 at 04:30 Acetaminophen (Tylenol Tab) 650 mg Q6H PRN PO .PAIN 1-3 OR TEMP; Start 12/26/18 at 04:30 Docusate Sodium (Colace) 100 mg Q12H PRN PO .CONSTIPATION; Start 12/26/18 at 04:30 Bisacodyl (Dulcolax) 5 mg DAILY PRN PO .CONSTIPATION; Start 12/26/18 at 04:30 Lorazepam (Ativan) 1 mg [id number] PRN IV SEIZURES; Start 12/26/18 at 06:00 Lorazepam (Ativan) 1 mg Q4H PRN IV CONTROL WITHDRAWAL SYMPTOMS Last administered on 12/29/18at 20:46; Admin Dose 1 MG; Start 12/26/18 at 08:00 Levetiracetam (Keppra) 1,500 mg BID PO Last administered on 01/03/19at 08:28; Admin Dose 1,500 MG; Start 12/26/18 at 09:00 Diphenhydramine HCl (Benadryl) 25 mg Q6H PRN IV itching Last administered on 01/03/19at 11:14; Admin Dose 25 MG; Start 12/26/18 at 10:30 Diphenhydramine/ Zinc Oxide (Benadryl 1% Cr) 1 applic Q6 PRN TOP itching; Start 12/26/18 at 10:30 Haloperidol (Haldol) 2 mg Q6H PRN IM agitation; Start 12/26/18 at 16:30 Folic Acid (Folic Acid) 1 mg DAILY PO Last administered on 01/03/19at 08:28; Admin Dose 1 MG; Start 12/28/18 at 09:00 Thiamine HCl (Vitamin B1) 100 mg DAILY PO Last administered on 01/03/19 08:28; Admin Dose 100 MG; Start 12/31/18 at 09:00 Ferrous Sulfate (Ferrous Sulfate (Ec)) 325 mg DAILY PO Last administered on 01/03/19 08:28; Admin Dose 325 MG; Start 12/31/18 at 13:00 Phenytoin (Dilantin) 100 mg TID PO Last administered on 01/03/19 08:28; Admin Dose 100 MG; Start 12/31/18 at 13:00 Sertraline HCl (Zoloft) 100 mg DAILY PO Last administered on 01/03/19 08:28; Admin Dose 100 MG; Start 01/02/19 at 09:00 Loratadine (Claritin) 10 mg DAILY PO Last administered on 01/03/19 08:29; Admin Dose 10 MG; Start 01/02/19 at 09:00 Hydrocortisone 1 applic TID PRN TOP ITCHING; Start 01/02/19 at 06:00 Miscellaneous Information (* Miscellaneous Pharmacy Order) PATIENT'S OWN MED IS ... DAILY XX ; Start 01/03/19 at 09:00 MAEGAN TREADWELL Jan 03, 2019 11:17
[2019-01-03] MEDS ORDERED: PHENYTOIN 500 MG in SOD CHLORIDE 0.9% 100 ML IV ONE (11:30)
[2019-01-03] MEDS ORDERED: MAGNESIUM OXIDE 400 MG TAB PO ONE (12:30)
[2019-01-03 14:00] VITALS: BP 99/59; PULSE 96; RESP 18
--- NOTE | 2019-01-03 15:26 | PN ---
Date/Time of Note Date/Time of Note DATE: 01/03/19 TIME: 15:26 Objective Vitals Vital Signs Date Temp Pulse Resp B/P (MAP) Pulse Ox O2 O2 Flow FiO2 Time Delivery Rate 01/03/19 98.5 96 18 99/59 (72) 92 14:00 01/02/19 Room Air 08:00 Intake and Output 01/02/19 01/02/19 01/03/19 1515:00 23:00 07:00 IntakeIntake Total 360 ml 520 ml BalanceBalance 360 ml 520 ml Results Result Diagram: 01/03/19 0434 01/03/19 0434 Medications Medications Current Medications IV Flush (NS 3 ml) 3 ml PER PROTOCOL IV ; Start 12/26/18 at 04:30 Ondansetron HCl (Zofran Inj) 4 mg Q6H PRN IV NAUSEA/VOMITING; Start 12/26/18 at 04:30 Acetaminophen (Tylenol Tab) 650 mg Q6H PRN PO .PAIN 1-3 OR TEMP; Start 12/26/18 at 04:30 Docusate Sodium (Colace) 100 mg Q12H PRN PO .CONSTIPATION; Start 12/26/18 at 04:30 Bisacodyl (Dulcolax) 5 mg DAILY PRN PO .CONSTIPATION; Start 12/26/18 at 04:30 Lorazepam (Ativan) 1 mg [id number] PRN IV SEIZURES; Start 12/26/18 at 06:00 Lorazepam (Ativan) 1 mg Q4H PRN IV CONTROL WITHDRAWAL SYMPTOMS Last administered on 12/29/18at 20:46; Admin Dose 1 MG; Start 12/26/18 at 08:00 Levetiracetam (Keppra) 1,500 mg BID PO Last administered on 01/03/19at 08:28; Admin Dose 1,500 MG; Start 12/26/18 at 09:00 Diphenhydramine HCl (Benadryl) 25 mg Q6H PRN IV itching Last administered on 01/03/19at 11:14; Admin Dose 25 MG; Start 12/26/18 at 10:30 Diphenhydramine/ Zinc Oxide (Benadryl 1% Cr) 1 applic Q6 PRN TOP itching; Start 12/26/18 at 10:30 Haloperidol (Haldol) 2 mg Q6H PRN IM agitation; Start 12/26/18 at 16:30 Folic Acid (Folic Acid) 1 mg DAILY PO Last administered on 01/03/19 08:28; Admin Dose 1 MG; Start 12/28/18 at 09:00 Thiamine HCl (Vitamin B1) 100 mg DAILY PO Last administered on 01/03/19 08:28; Admin Dose 100 MG; Start 12/31/18 at 09:00 Ferrous Sulfate (Ferrous Sulfate (Ec)) 325 mg DAILY PO Last administered on 01/03/19 08:28; Admin Dose 325 MG; Start 12/31/18 at 13:00 Phenytoin (Dilantin) 100 mg TID PO Last administered on 01/03/19 14:31; Admin Dose 100 MG; Start 12/31/18 at 13:00 Sertraline HCl (Zoloft) 100 mg DAILY PO Last administered on 01/03/19 08:28; Admin Dose 100 MG; Start 01/02/19 at 09:00 Loratadine (Claritin) 10 mg DAILY PO Last administered on 01/03/19 08:29; Admin Dose 10 MG; Start 01/02/19 at 09:00 Hydrocortisone 1 applic TID PRN TOP ITCHING; Start 01/02/19 at 06:00 Miscellaneous Information (* Miscellaneous Pharmacy Order) PATIENT'S OWN MED IS ... DAILY XX ; Start 01/03/19 at 09:00 VTE Prophylaxis Risk score (from Ns)>0 risk: 1 SCD applied (from Ns): No SCD contraindication: low risk/ambulating Lines/Catheters IV Catheter Type: Ayala in Place: No Assessment/Plan Hospital Course Subjective Patient feeling well, Objective Physical exam General: Patient is laying in bed and answers questions appropriately Mentation: Patient is alert and oriented 4, Head: Normocephalic atraumatic Eyes: EOMI, pupils reactive to light Neck: Supple, nontender, midline Respiratory: Clear to auscultation bilaterally Cardiovascular: regular rate, no obvious murmurs Gastrointestinal: non-tender to palpation, bowel sounds heard. Neurological: Moves all extremities spontaneously Skin: No new skin lesions Assessment/Plan 1. Acute encephalopathy, most likely metabolic-toxic etiology- improving - patient with more fluid train of thought, however still having almost pressured speech, psychiatry has been consulted, patient has depression but able to make her own decisions. - Neurology on board and appreciate recommendations - MRI results noted with no acute abnormalities - continue treatment for alcohol withdrawal, librium tapered, now DC'd 2. Seizure disorder - continue on Dilantin and Keppra. monitor levels - seizure precautions - Ativan PRN - Appreciate neurology consultation 3. Hyponatremia- resolved Hyperkalemia -Unknown etiology, per neurology unlikely Keppra and Dilantin have issues with potassium, Kayexalate given x1 -Continue monitoring potassium if continues to increase will need to consult nephrology -DC multivitamin for now 4. Alcoholic hepatitis- improving - monitor LFTs , folate, and thiamine 5. Alcohol abuse - counseled about cessation - concern for possible Wernicke's encephalopathy. was on high dose thiamine - Librium taper and monitor for DTs 6. Normocytic anemia, hx of iron deficiency - iron studies noted - no need for transfusions at this time -cont home ferrous sulfate 7. Right eye blindness - Stable 8. Disposition -SNF placement?, very unstable at home., Monitor potassium levels before placement SOPHIE POWERS Jan 03, 2019 15:26
[2019-01-03 19:54] VITALS: BP 97/55; PULSE 99; RESP 18
[2019-01-04 01:27] VITALS: BP 98/55; PULSE 95; RESP 16
[2019-01-04 07:49] VITALS: BP 139/72; PULSE 79; RESP 18
[2019-01-04] MEDS: SERTRALINE 100 MG TAB PO SCH (08:33)
[2019-01-04] MEDS: FOLIC ACID 1 MG TAB PO SCH (08:34)
[2019-01-04] MEDS: FERROUS SULFATE (EC) 325 MG TAB PO SCH (08:34)
[2019-01-04] MEDS: LEVETIRACETAM 750 MG TAB PO SCH ×2 (08:34→20:38)
[2019-01-04] MEDS: THIAMINE 100 MG TAB PO SCH (08:34)
[2019-01-04] MEDS: PHENYTOIN 100 MG CAP PO SCH ×3 (08:34→20:38)
[2019-01-04] MEDS: LORATADINE 10 MG TAB PO SCH (08:34)
[2019-01-04] MEDS ORDERED: MAGNESIUM OXIDE 400 MG TAB PO ONE (10:30)
[2019-01-04 13:58] VITALS: BP 97/57; PULSE 83; RESP 18
--- NOTE | 2019-01-04 15:22 | CONS ---
Assessment/Plan Assessment/Plan Assessment/Plan (Recall) 53 F c/ epilepsy and other comorbidities, who presents for evaluation of ams...for which neurology is consulted. The clinical picture could be consistent w/ an acute toxic-metabolic encephalopathy...which has shown significant improvement. Post-ictal encephalopathy is additionally considered A focal [employer] process is less likely.. Na 127.. Mg 0.8 Dilantin <3 UA equivocal. UDS neg MRI brain is negative for acute pathology P: Continue Dilantin [id number] tid for now; repeat level as an outpatient in ~ 1 week and titrate prn to goal 10-20 Continue Keppra per ops as written Agree w/ thiamine/folate supplementation Other medical management and supportive care per primary PT/OT/ST as necessary Will sign off for now; please call w/ ramón ?s Consultation Date/Type/Reason Admit Date/Time Dec 26, 2018 at 04:04 Type of Consult Neurology Reason for Consultation ams Requesting Provider: ROSA HALL Date/Time of Note DATE: 01/04/19 TIME: 15:21 24 HR Interval Summary Free Text/Dictation Continues acute care Exam/Review of Systems Exam Vitals Vital Signs Date Temp Pulse Resp B/P (MAP) Pulse Ox O2 O2 Flow FiO2 Time Delivery Rate 01/04/19 98.1 83 18 97/57 (70) 99 Room Air 13:58 Intake and Output 01/03/19 01/03/19 01/04/19 1515:00 23:00 07:00 IntakeIntake Total 520 ml 110 ml 240 ml BalanceBalance 520 ml 110 ml 240 ml Results Result Diagram: 01/04/19 0435 01/04/19 0435 Results 24hrs Laboratory Tests Test 01/04/19 04:35 White Blood Count 4.7 L Red Blood Count 2.84 L Hemoglobin 9.5 L Hematocrit 30.2 L Mean Corpuscular Volume 106.3 H Mean Corpuscular Hemoglobin 33.5 H Mean Corpuscular Hemoglobin Concent 31.5 L Red Cell Distribution Width 13.1 Platelet Count 274 Mean Platelet Volume 10.6 H Immature Granulocytes % 0.400 Neutrophils % 34.1 L Lymphocytes % 50.5 Monocytes % 10.3 Eosinophils % 3.2 Basophils % 1.5 Nucleated Red Blood Cells % 0.0 Immature Granulocytes # 0.020 Neutrophils # 1.6 Lymphocytes # 2.4 Monocytes # 0.5 Eosinophils # 0.2 Basophils # 0.1 Nucleated Red Blood Cells # 0.0 Sodium Level 141 Potassium Level 5.1 Chloride Level 106 Carbon Dioxide Level 26 Anion Gap 9 Blood Urea Nitrogen 35 H Creatinine 0.95 Est Glomerular Filtrat Rate mL/min > 60 Glucose Level 99 Calcium Level 10.0 Phosphorus Level 6.5 H Magnesium Level 1.4 L Phenytoin (Dilantin) Level 13.5 Medications Medication Current Medications IV Flush (NS 3 ml) 3 ml PER PROTOCOL IV ; Start 12/26/18 at 04:30 Ondansetron HCl (Zofran Inj) 4 mg Q6H PRN IV NAUSEA/VOMITING; Start 12/26/18 at 04:30 Acetaminophen (Tylenol Tab) 650 mg Q6H PRN PO .PAIN 1-3 OR TEMP; Start 12/26/18 at 04:30 Docusate Sodium (Colace) 100 mg Q12H PRN PO .CONSTIPATION; Start 12/26/18 at 04:30 Bisacodyl (Dulcolax) 5 mg DAILY PRN PO .CONSTIPATION; Start 12/26/18 at 04:30 Lorazepam (Ativan) 1 mg [id number] PRN IV SEIZURES; Start 12/26/18 at 06:00 Lorazepam (Ativan) 1 mg Q4H PRN IV CONTROL WITHDRAWAL SYMPTOMS Last administe red on 12/29/18at 20:46; Admin Dose 1 MG; Start 12/26/18 at 08:00 Levetiracetam (Keppra) 1,500 mg BID PO Last administered on 01/04/19at 08:34; Admin Dose 1,500 MG; Start 12/26/18 at 09:00 Diphenhydramine HCl (Benadryl) 25 mg Q6H PRN IV itching Last administered on 01/03/19at 11:14; Admin Dose 25 MG; Start 12/26/18 at 10:30 Diphenhydramine/ Zinc Oxide (Benadryl 1% Cr) 1 applic Q6 PRN TOP itching; S tart 12/26/18 at 10:30 Haloperidol (Haldol) 2 mg Q6H PRN IM agitation; Start 12/26/18 at 16:30 Folic Acid (Folic Acid) 1 mg DAILY PO Last administered on 8/2/19at 08:34; Admin Dose 1 MG; Start 12/28/18 at 09:00 Thiamine HCl (Vitamin B1) 100 mg DAILY PO Last administered on 01/04/19 08:34; Admin Dose 100 MG; Start 12/31/18 at 09:00 Ferrous Sulfate (Ferrous Sulfate (Ec)) 325 mg DAILY PO Last administered on 01/04/19 08:34; Admin Dose 325 MG; Start 12/31/18 at 13:00 Phenytoin (Dilantin) 100 mg TID PO Last administered on 01/04/19 12:59; Admin Dose 100 MG; Start 12/31/18 at 13:00 Sertraline HCl (Zoloft) 100 mg DAILY PO Last administered on 01/04/19 08:33; Admin Dose 100 MG; Start 01/02/19 at 09:00 Loratadine (Claritin) 10 mg DAILY PO Last administered on 01/04/19 08:34; Admin Dose 10 MG; Start 01/02/19 at 09:00 Hydrocortisone 1 applic TID PRN TOP ITCHING; Start 01/02/19 at 06:00 Miscellaneous Information (* Miscellaneous Pharmacy Order) PATIENT'S OWN MED IS ... DAILY XX ; Start 01/03/19 at 09:00 MAEGAN TREADWELL Jan 04, 2019 15:22
[2019-01-04] MEDS: HYDROCORTISONE 2.5% 28.35 GM CR TOP PRN (15:47)
--- NOTE | 2019-01-04 17:15 | PN ---
Date/Time of Note Date/Time of Note DATE: 01/04/19 TIME: 17:15 Objective Vitals Vital Signs Date Temp Pulse Resp B/P (MAP) Pulse Ox O2 O2 Flow FiO2 Time Delivery Rate 01/04/19 98.1 83 18 97/57 (70) 99 Room Air 13:58 Intake and Output 01/03/19 01/03/19 01/04/19 1515:00 23:00 07:00 IntakeIntake Total 520 ml 110 ml 240 ml BalanceBalance 520 ml 110 ml 240 ml Results Result Diagram: 01/04/19 0435 01/04/19 0435 Medications Medications Current Medications IV Flush (NS 3 ml) 3 ml PER PROTOCOL IV ; Start 12/26/18 at 04:30 Ondansetron HCl (Zofran Inj) 4 mg Q6H PRN IV NAUSEA/VOMITING; Start 12/26/18 at 04:30 Acetaminophen (Tylenol Tab) 650 mg Q6H PRN PO .PAIN 1-3 OR TEMP; Start 12/26/18 at 04:30 Docusate Sodium (Colace) 100 mg Q12H PRN PO .CONSTIPATION; Start 12/26/18 at 04:30 Bisacodyl (Dulcolax) 5 mg DAILY PRN PO .CONSTIPATION; Start 12/26/18 at 04:30 Lorazepam (Ativan) 1 mg [id number] PRN IV SEIZURES; Start 12/26/18 at 06:00 Lorazepam (Ativan) 1 mg Q4H PRN IV CONTROL WITHDRAWAL SYMPTOMS Last administe red on 12/29/18at 20:46; Admin Dose 1 MG; Start 12/26/18 at 08:00 Levetiracetam (Keppra) 1,500 mg BID PO Last administered on 01/04/19at 08:34; Admin Dose 1,500 MG; Start 12/26/18 at 09:00 Diphenhydramine HCl (Benadryl) 25 mg Q6H PRN IV itching Last administered on 01/03/19at 11:14; Admin Dose 25 MG; Start 12/26/18 at 10:30 Diphenhydramine/ Zinc Oxide (Benadryl 1% Cr) 1 applic Q6 PRN TOP itching; S tart 12/26/18 at 10:30 Haloperidol (Haldol) 2 mg Q6H PRN IM agitation; Start 12/26/18 at 16:30 Folic Acid (Folic Acid) 1 mg DAILY PO Last administered on 01/04/19 08:34; Admin Dose 1 MG; Start 12/28/18 at 09:00 Thiamine HCl (Vitamin B1) 100 mg DAILY PO Last administered on 01/04/19 08:34; Admin Dose 100 MG; Start 12/31/18 at 09:00 Ferrous Sulfate (Ferrous Sulfate (Ec)) 325 mg DAILY PO Last administered on 01/04/19 08:34; Admin Dose 325 MG; Start 12/31/18 at 13:00 Phenytoin (Dilantin) 100 mg TID PO Last administered on 01/04/19 12:59; Admin Dose 100 MG; Start 12/31/18 at 13:00 Sertraline HCl (Zoloft) 100 mg DAILY PO Last administered on 01/04/19 08:33; Admin Dose 100 MG; Start 01/02/19 at 09:00 Loratadine (Claritin) 10 mg DAILY PO Last administered on 01/04/19 08:34; Admin Dose 10 MG; Start 01/02/19 at 09:00 Hydrocortisone 1 applic TID PRN TOP ITCHING Last administered on 01/04/19 15:47; Admin Dose 1 APPLIC; Start 01/02/19 at 06:00 Miscellaneous Information (* Miscellaneous Pharmacy Order) PATIENT'S OWN MED IS ... DAILY XX ; Start 01/03/19 at 09:00 VTE Prophylaxis Risk score (from Ns)>0 risk: 3 SCD applied (from Ns): No SCD contraindication: other Lines/Catheters IV Catheter Type: Ayala in Place: No Assessment/Plan Hospital Course Subjective Patient feeling well, Objective Physical exam General: Patient is laying in bed and answers questions appropriately Mentation: Patient is alert and oriented 4, Head: Normocephalic atraumatic Eyes: EOMI, pupils reactive to light Neck: Supple, nontender, midline Respiratory: Clear to auscultation bilaterally Cardiovascular: regular rate, no obvious murmurs Gastrointestinal: non-tender to palpation, bowel sounds heard. Neurological: Moves all extremities spontaneously Skin: No new skin lesions Assessment/Plan 1. Acute encephalopathy, most likely metabolic-toxic etiology- improving - patient with more fluid train of thought, however still having almost pressured speech, psychiatry has been consulted, patient has depression but able to make her own decisions. - Neurology on board and appreciate recommendations - MRI results noted with no acute abnormalities - continue treatment for alcohol withdrawal, librium tapered, now DC'd 2. Seizure disorder - continue on Dilantin and Keppra. monitor levels - seizure precautions - Ativan PRN - Appreciate neurology consultation 3. Hyponatremia- resolved Hyperkalemia -Unknown etiology, per neurology unlikely Keppra and Dilantin have issues with potassium, Kayexalate given x1 -Continue monitoring potassium if continues to increase will need to consult nephrology -DC multivitamin for now 4. Alcoholic hepatitis- improving - monitor LFTs , folate, and thiamine 5. Alcohol abuse - counseled about cessation - concern for possible Wernicke's encephalopathy. was on high dose thiamine - Librium taper and monitor for DTs 6. Normocytic anemia, hx of iron deficiency - iron studies noted - no need for transfusions at this time -cont home ferrous sulfate 7. Right eye blindness - Stable 8. Disposition -SNF placement?, very unstable at home., f/u with nephrology recs SOPHIE POWERS Jan 04, 2019 17:15
--- NOTE | 2019-01-04 19:03 | CONS ---
DATE OF ADMISSION: 12/26/2018 DATE OF CONSULTATION: 01/04/2019 TYPE OF CONSULTATION: Nephrology. REASON FOR CONSULTATION: Electrolyte abnormalities, hypomagnesemia. PHYSICIAN REQUESTING CONSULTATION: Sophie Maciel MD HISTORY OF PRESENT ILLNESS: This is a 53-year-old female with a past medical history of ETOH abuse, history of seizure disorder, history of right eye blindness, who presents to [facility] due to altered mental status. The patient upon arrival was noted to be very confused. The lashell ent does admit to drinking alcohol daily normally a pint. The patient was subsequently admitted for ETOH abuse. During the hospital course, the patient was seen by psychiatry. The patient no signs of alcohol withdrawal. The patient's mental status during the hospital course has improved. In terms of the patient's renal history, on admission the patient was noted to be hypomagnesemia whic h remained low during hospital stay. The patient was also noted to be hyperphosphatemic. There have been no reports of any hemoptysis, hematemesis, hematochezia. PAST MEDICAL HISTORY: As stated above, history of seizure disorder, history of EtOH abuse. PAST SURGICAL HISTORY: Unknown. ALLERGIES: NONE. FAMILY HISTORY: No family history of kidney disease. SOCIAL HISTORY: Positive alcohol use. MEDICATIONS: Have been reviewed. REVIEW OF SYSTEMS: A 14-point review of systems conducted. Pertinent positives stated in HPI, other cueva negative. PHYSICAL EXAMINATION: VITAL SIGNS: Blood pressure 140/76, respirations 16, pulse 72, temperature 98.6. HEENT: Head is normocephalic. NECK: Supple. HEART: Regular rate. LUNGS: Show diminished breath sounds at the base. ABDOMEN: Soft, nontender to palpation without rebound or guarding. EXTREMITIES: Negative for clubbing, cyanosis. No edema. DERMATOLOGIC: No rashes. MUSCULOSKELETAL: No joint effusion. NEUROLOGIC: No change in exam. LABORATORY DATA: Reviewed. IMAGING STUDIES: Have been reviewed. ASSESSMENT AND PLAN: This is a 53-year-old female who presents with: 1. Hypomagnesemia. Etiology is secondary to EtOH abuse causing renal tubular dysfunction and . Recommendation at this point is to continue to monitor and replete magnesium levels. Expectation i s after 4 to 6 weeks of sobriety, patient's magnesium levels will improve and ongoing renal losses wi ll diminished. We will continue to monitor closely. 2. Mineral bone disorder. The patient was noted to be hypophosphatemic. Check a PTH level. 3. Azotemia, questionable chronic kidney disease. We will repeat urinalysis, check urine electrolyt es, get a renal ultrasound. 4. Acute encephalopathy. Etiology is toxic metabolic. Continue to monitor. 5. Seizure disorder. Continue medical management. 6. EtOH hepatitis per LFTs. 7. History of EtOH abuse. Continue Librium taper and current treatment plan as outlined. Thank you, Dr. Maciel, for this interesting consult. It will be a pleasure to follow patient with juan a cruzout the hospital course. Dictated By: IDANIA MAHARAJ DO NR/NTS Conf#: [id number] DID#: [id number] CC: SOPHIE MACIEL MD; ROSA HALL MD; MAEGAN TREADWELL;*EndCC*
[2019-01-04 19:50] VITALS: BP 111/67; PULSE 86; RESP 18
[2019-01-05 02:44] VITALS: BP 104/71; PULSE 88; RESP 18
[2019-01-05] MEDS ORDERED: MAGNESIUM SULFATE 2 GM/50 ML 50 ML IVPB ONE (07:30)
[2019-01-05] MEDS: CHOLECALCIFEROL 1,000 UNIT TAB PO SCH (08:04)
[2019-01-05] MEDS: FERROUS SULFATE (EC) 325 MG TAB PO SCH (08:05)
[2019-01-05] MEDS: LEVETIRACETAM 750 MG TAB PO SCH ×2 (08:05→20:14)
[2019-01-05] MEDS: LORATADINE 10 MG TAB PO SCH (08:05)
[2019-01-05] MEDS: PHENYTOIN 100 MG CAP PO SCH ×3 (08:05→20:14)
[2019-01-05] MEDS: SERTRALINE 100 MG TAB PO SCH (08:05)
[2019-01-05] MEDS: THIAMINE 100 MG TAB PO SCH (08:05)
[2019-01-05] MEDS: FOLIC ACID 1 MG TAB PO SCH (08:05)
[2019-01-05] MEDS: HYDROCORTISONE 2.5% 28.35 GM CR TOP PRN (08:06)
[2019-01-05 08:08] VITALS: BP 124/96; PULSE 90; RESP 18
--- NOTE | 2019-01-05 13:44 | PN ---
Date/Time of Note Date/Time of Note DATE: 01/05/19 TIME: 13:44 Objective Vitals Vital Signs Date Temp Pulse Resp B/P (MAP) Pulse Ox O2 O2 Flow FiO2 Time Delivery Rate 01/05/19 98.0 90 18 124/96 99 Room Air 08:08 (105) Intake and Output 01/04/19 01/04/19 01/05/19 1515:00 23:00 07:00 IntakeIntake Total 500 ml 300 ml BalanceBalance 500 ml 300 ml Results Result Diagram: 01/05/193 01/05/19432 Medications Medications Current Medications IV Flush (NS 3 ml) 3 ml PER PROTOCOL IV ; Start 12/26/18 at 04:30 Ondansetron HCl (Zofran Inj) 4 mg Q6H PRN IV NAUSEA/VOMITING; Start 12/26/18 at 04:30 Acetaminophen (Tylenol Tab) 650 mg Q6H PRN PO .PAIN 1-3 OR TEMP; Start 12/26/18 at 04:30 Docusate Sodium (Colace) 100 mg Q12H PRN PO .CONSTIPATION; Start 12/26/18 at 04:30 Bisacodyl (Dulcolax) 5 mg DAILY PRN PO .CONSTIPATION; Start 12/26/18 at 04:30 Lorazepam (Ativan) 1 mg [id number] PRN IV SEIZURES; Start 12/26/18 at 06:00 Lorazepam (Ativan) 1 mg Q4H PRN IV CONTROL WITHDRAWAL SYMPTOMS Last administered on 12/29/18at 20:46; Admin Dose 1 MG; Start 12/26/18 at 08:00 Levetiracetam (Keppra) 1,500 mg BID PO Last administered on 01/05/19at 08:05; Admin Dose 1,500 MG; Start 12/26/18 at 09:00 Diphenhydramine HCl (Benadryl) 25 mg Q6H PRN IV itching Last administered on 01/03/19at 11:14; Admin Dose 25 MG; Start 12/26/18 at 10:30 Diphenhydramine/ Zinc Oxide (Benadryl 1% Cr) 1 applic Q6 PRN TOP itching; Start 12/26/18 at 10:30 Haloperidol (Haldol) 2 mg Q6H PRN IM agitation; Start 12/26/18 at 16:30 Folic Acid (Folic Acid) 1 mg DAILY PO Last administered on 01/05/19 08:05; Admin Dose 1 MG; Start 12/28/18 at 09:00 Thiamine HCl (Vitamin B1) 100 mg DAILY PO Last administered on 01/05/19 08:05; Admin Dose 100 MG; Start 12/31/18 at 09:00 Ferrous Sulfate (Ferrous Sulfate (Ec)) 325 mg DAILY PO Last administered on 01/05/19 08:05; Admin Dose 325 MG; Start 12/31/18 at 13:00 Phenytoin (Dilantin) 100 mg TID PO Last administered on 01/05/19 13:42; Admin Dose 100 MG; Start 12/31/18 at 13:00 Sertraline HCl (Zoloft) 100 mg DAILY PO Last administered on 01/05/19 08:05; Admin Dose 100 MG; Start 01/02/19 at 09:00 Loratadine (Claritin) 10 mg DAILY PO Last administered on 01/05/19 08:05; Admin Dose 10 MG; Start 01/02/19 at 09:00 Hydrocortisone 1 applic TID PRN TOP ITCHING Last administered on 01/05/19 08:06; Admin Dose 1 APPLIC; Start 01/02/19 at 06:00 Miscellaneous Information (* Miscellaneous Pharmacy Order) PATIENT'S OWN MED IS ... DAILY XX ; Start 01/03/19 at 09:00 Cholecalciferol (Vitamin D) 1,000 unit DAILY PO Last administered on 01/05/19 08:04; Admin Dose 1,000 UNIT; Start 01/05/19 at 09:00 VTE Prophylaxis Risk score (from Nsg)>0 risk: 1 SCD applied (from Nsg): No SCD contraindication: other Lines/Catheters IV Catheter Type: Ayala in Place: No Assessment/Plan Hospital Course Subjective Patient feeling well, Objective Physical exam General: Patient is laying in bed and answers questions appropriately Mentation: Patient is alert and oriented 4, Head: Normocephalic atraumatic Eyes: EOMI, pupils reactive to light Neck: Supple, nontender, midline Respiratory: Clear to auscultation bilaterally Cardiovascular: regular rate, no obvious murmurs Gastrointestinal: non-tender to palpation, bowel sounds heard. Neurological: Moves all extremities spontaneously Skin: No new skin lesions Assessment/Plan 1. Acute encephalopathy, most likely metabolic-toxic etiology- improving - patient with more fluid train of thought, however still having almost pressured speech, psychiatry has been consulted, patient has depression but able to make her own decisions. - Neurology on board and appreciate recommendations - MRI results noted with no acute abnormalities - continue treatment for alcohol withdrawal, librium tapered, now DC'd 2. Seizure disorder - continue on Dilantin and Keppra. monitor levels - seizure precautions - Ativan PRN - Appreciate neurology consultation 3. Hyponatremia- resolved Hyperkalemia -Unknown etiology, per neurology unlikely Keppra and Dilantin have issues with potassium, Kayexalate given x1 -Continue monitoring potassium if continues to increase will need to consult nephrology -DC multivitamin for now 4. Alcoholic hepatitis- improved - monitor LFTs , folate, and thiamine 5. Alcohol abuse - counseled about cessation - concern for possible Wernicke's encephalopathy. was on high dose thiamine - Librium taper and monitor for DTs 6. Normocytic anemia, hx of iron deficiency - iron studies noted - no need for transfusions at this time -cont home ferrous sulfate 7. Right eye blindness - Stable 8. Disposition -SNF placement?, very unstable at home., f/u with nephrology recs SOPHIE POWERS Jan 05, 2019 13:44
[2019-01-05 13:59] VITALS: BP 111/68; PULSE 96; RESP 18
[2019-01-05 20:00] VITALS: BP 123/73; PULSE 89; RESP 19
[2019-01-06 02:14] VITALS: BP 114/73; PULSE 95; RESP 18
[2019-01-06 08:02] VITALS: BP 120/78; PULSE 70; RESP 18
[2019-01-06] MEDS: SERTRALINE 100 MG TAB PO SCH (08:09)
[2019-01-06] MEDS: THIAMINE 100 MG TAB PO SCH (08:09)
[2019-01-06] MEDS: FERROUS SULFATE (EC) 325 MG TAB PO SCH (08:09)
[2019-01-06] MEDS: CHOLECALCIFEROL 1,000 UNIT TAB PO SCH (08:09)
[2019-01-06] MEDS: LORATADINE 10 MG TAB PO SCH (08:09)
[2019-01-06] MEDS: LEVETIRACETAM 750 MG TAB PO SCH ×2 (08:09→20:05)
[2019-01-06] MEDS: FOLIC ACID 1 MG TAB PO SCH (08:09)
[2019-01-06] MEDS: PHENYTOIN 100 MG CAP PO SCH ×3 (08:09→20:04)
--- NOTE | 2019-01-06 08:32 | PN ---
DATE: 01/06/2019 SUBJECTIVE: The patient is stable, no events overnight. OBJECTIVE: VITAL SIGNS: Blood pressure is 114/73, respiration 18, pulse 95, temperature 97.8. HEENT: Head is normocephalic. NECK: Supple. HEART: Regular rate. LUNGS: Show diminished breath sounds at the base. ABDOMEN: Soft, nontender to palpation without rebound or guarding. EXTREMITIES: Negative for clubbing, cyanosis, no edema. DERMATOLOGIC: No rashes. MUSCULOSKELETAL: No joint effusion. NEUROLOGIC: No change in exam. MEDICATIONS: The patient's medications have been reviewed. LABORATORY DATA: Has been reviewed. IMAGING STUDIES: Have been reviewed. ASSESSMENT AND PLAN: 1. Renal deficiency, possible chronic kidney disease. The patient's renal ultrasound showed a sneha l echogenicity, no obstruction. Renal function has been stable, but creatinine marginally elevated. At this point, continue current treatment plan, supportive care and renally dose all meds. The lashell ent's urinalysis was bland, no significant proteinuria. 2. Hypomagnesemia. Etiology is likely due to ETOH abuse causing magnesium wasting. At this point, continue to monitor and replete. 3. Mineral bone disorder. The patient is hyperphosphatemic. The patient's PTH levels are surprisin gly low. Continue to monitor. 4. Acute encephalopathy, etiology is toxic metabolic. 5. Seizure disorder. Continue medical management. 6. ETOH hepatitis. Continue to monitor LFTs. 7. History of ETOH abuse. Continue Librium taper. Dictated By: IDANIA LAMBERT/NTS Conf#: [id number] DID#: [id number] CC: SOPHIE POWERS MD; ROSA HALL MD; MAEGAN TREADWELL;*EndCC*
--- NOTE | 2019-01-06 11:50 | PN ---
Date/Time of Note Date/Time of Note DATE: 01/06/19 TIME: 11:50 Objective Vitals Vital Signs Date Temp Pulse Resp B/P (MAP) Pulse Ox O2 O2 Flow FiO2 Time Delivery Rate 01/06/19 98.1 70 18 120/78 100 08:02 (92) 01/05/19 Room Air 13:59 Intake and Output 01/05/19 01/05/19 01/06/19 1515:00 23:00 07:00 IntakeIntake Total 500 ml 200 ml BalanceBalance 500 ml 200 ml Results Result Diagram: 01/06/1942901/06/19 043 Medications Medications Current Medications IV Flush (NS 3 ml) 3 ml PER PROTOCOL IV ; Start 12/26/18 at 04:30 Ondansetron HCl (Zofran Inj) 4 mg Q6H PRN IV NAUSEA/VOMITING; Start 12/26/18 at 04:30 Acetaminophen (Tylenol Tab) 650 mg Q6H PRN PO .PAIN 1-3 OR TEMP; Start 12/26/18 at 04:30 Docusate Sodium (Colace) 100 mg Q12H PRN PO .CONSTIPATION; Start 12/26/18 at 04:30 Bisacodyl (Dulcolax) 5 mg DAILY PRN PO .CONSTIPATION; Start 12/26/18 at 04:30 Lorazepam (Ativan) 1 mg [id number] PRN IV SEIZURES; Start 12/26/18 at 06:00 Lorazepam (Ativan) 1 mg Q4H PRN IV CONTROL WITHDRAWAL SYMPTOMS Last administered on 12/29/18at 20:46; Admin Dose 1 MG; Start 12/26/18 at 08:00 Levetiracetam (Keppra) 1,500 mg BID PO Last administered on 01/06/19at 08:09; Admin Dose 1,500 MG; Start 12/26/18 at 09:00 Diphenhydramine HCl (Benadryl) 25 mg Q6H PRN IV itching Last administered on 01/03/19at 11:14; Admin Dose 25 MG; Start 12/26/18 at 10:30 Diphenhydramine/ Zinc Oxide (Benadryl 1% Cr) 1 applic Q6 PRN TOP itching; Start 12/26/18 at 10:30 Haloperidol (Haldol) 2 mg Q6H PRN IM agitation; Start 12/26/18 at 16:30 Folic Acid (Folic Acid) 1 mg DAILY PO Last administered on 01/06/19 08:09; Admin Dose 1 MG; Start 12/28/18 at 09:00 Thiamine HCl (Vitamin B1) 100 mg DAILY PO Last administered on 01/06/19 08:09; Admin Dose 100 MG; Start 12/31/18 at 09:00 Ferrous Sulfate (Ferrous Sulfate (Ec)) 325 mg DAILY PO Last administered on 01/06/19 08:09; Admin Dose 325 MG; Start 12/31/18 at 13:00 Phenytoin (Dilantin) 100 mg TID PO Last administered on 01/06/19 08:09; Admin Dose 100 MG; Start 12/31/18 at 13:00 Sertraline HCl (Zoloft) 100 mg DAILY PO Last administered on 01/06/19 08:09; Admin Dose 100 MG; Start 01/02/19 at 09:00 Loratadine (Claritin) 10 mg DAILY PO Last administered on 01/06/19 08:09; Admin Dose 10 MG; Start 01/02/19 at 09:00 Hydrocortisone 1 applic TID PRN TOP ITCHING Last administered on 01/05/19 08:06; Admin Dose 1 APPLIC; Start 01/02/19 at 06:00 Miscellaneous Information (* Miscellaneous Pharmacy Order) PATIENT'S OWN MED IS ... DAILY XX ; Start 01/03/19 at 09:00 Cholecalciferol (Vitamin D) 1,000 unit DAILY PO Last administered on 01/06/19 08:09; Admin Dose 1,000 UNIT; Start 01/05/19 at 09:00 VTE Prophylaxis Risk score (from Nsg)>0 risk: 1 SCD applied (from Nsg): No SCD contraindication: other Lines/Catheters IV Catheter Type: Ayala in Place: No Assessment/Plan Hospital Course Subjective Patient feeling well, Objective Physical exam General: Patient is laying in bed and answers questions appropriately Mentation: Patient is alert and oriented 4, Head: Normocephalic atraumatic Eyes: EOMI, pupils reactive to light Neck: Supple, nontender, midline Respiratory: Clear to auscultation bilaterally Cardiovascular: regular rate, no obvious murmurs Gastrointestinal: non-tender to palpation, bowel sounds heard. Neurological: Moves all extremities spontaneously Skin: No new skin lesions Assessment/Plan 1. Acute encephalopathy, most likely metabolic-toxic etiology- improving - patient with more fluid train of thought, however still having almost pressured speech, psychiatry has been consulted, patient has depression but able to make her own decisions. - Neurology on board and appreciate recommendations - MRI results noted with no acute abnormalities - continue treatment for alcohol withdrawal, librium tapered, now DC'd 2. Seizure disorder - continue on Dilantin and Keppra. monitor levels - seizure precautions - Ativan PRN - Appreciate neurology consultation 3. Hyponatremia- resolved Hyperkalemia -Unknown etiology, per neurology unlikely Keppra and Dilantin have issues with potassium, Kayexalate given x1 -Continue monitoring potassium if continues to increase will need to consult nephrology -DC multivitamin for now 4. Alcoholic hepatitis- improved - monitor LFTs , folate, and thiamine 5. Alcohol abuse - counseled about cessation - concern for possible Wernicke's encephalopathy. was on high dose thiamine - Librium taper and monitor for DTs 6. Normocytic anemia, hx of iron deficiency - iron studies noted - no need for transfusions at this time -cont home ferrous sulfate 7. Right eye blindness - Stable 8. Disposition -SNF placement?, very unstable at home., f/u with nephrology recs SOPHIE POWERS Jan 06, 2019 11:50
[2019-01-06 13:37] VITALS: BP 131/82; PULSE 87; RESP 18
[2019-01-06 20:00] VITALS: BP 116/75; PULSE 89; RESP 19
[2019-01-07 02:08] VITALS: BP 97/63; PULSE 84; RESP 19
--- NOTE | 2019-01-07 06:32 | PN ---
DATE: 01/05/2019 SUBJECTIVE: The patient is stable, no events overnight. No fevers, chills, nausea or vomiting. OBJECTIVE: VITAL SIGNS: Blood pressure is 104/71, respiration 18, pulse 88, temperature 97.7. HEENT: Head is normocephalic. NECK: Supple. HEART: Regular rate. LUNGS: Show diminished breath sounds at the base. ABDOMEN: Soft, nontender to palpation without rebound or guarding. EXTREMITIES: Negative for clubbing, cyanosis, no edema. DERMATOLOGIC: No rashes. MUSCULOSKELETAL: No joint effusions. NEUROLOGIC: No change in exam. MEDICATIONS: Have been reviewed. LABORATORY DATA: Has been reviewed. IMAGING STUDIES: Have been reviewed. URINALYSIS: Has been reviewed. ASSESSMENT AND PLAN: 1. Hypomagnesemia, etiology secondary to ETOH abuse causing renal magnesium wasting. Etiology is se condary to nephron tubular dysfunction causing . Expectation is after 4 to 6 weeks of sobriety, magnesium levels will stabilize and ongoing losses will be diminished. We will continue to monitor and replete. 2. Mineral bone disorder. The patient is hyperphosphatemic. PTH levels remain low. Etiology may b e secondary to chronic kidney disease. Will continue to monitor. Consider phos binders. 3. Possible chronic kidney disease. Plan is to check a renal ultrasound to evaluate renal parenchym a. Urinalysis is bland. Continue to monitor. No evidence of proteinuria. 4. Acute encephalopathy, etiology is toxic metabolic. 5. disorder. Continue medical management. 6. History of ETOH abuse, currently stable. No signs of withdrawal. Continue Librium taper. 7. hepatitis. Dictated By: IDANIA LAMBERT/ALVINA Conf#: [id number] DID#: [id number] CC: ROSA HALL MD;*EndCC*
[2019-01-07] MEDS ORDERED: MAGNESIUM SULFATE 2 GM/50 ML 50 ML IVPB ONE (07:30)
[2019-01-07 07:43] VITALS: BP 127/92; PULSE 80; RESP 18
[2019-01-07] MEDS: SERTRALINE 100 MG TAB PO SCH (08:06)
[2019-01-07] MEDS: CHOLECALCIFEROL 1,000 UNIT TAB PO SCH (08:06)
[2019-01-07] MEDS: FERROUS SULFATE (EC) 325 MG TAB PO SCH (08:06)
[2019-01-07] MEDS: THIAMINE 100 MG TAB PO SCH (08:06)
[2019-01-07] MEDS: LEVETIRACETAM 750 MG TAB PO SCH ×2 (08:06→20:45)
[2019-01-07] MEDS: LORATADINE 10 MG TAB PO SCH (08:06)
[2019-01-07] MEDS: SEVELAMER CARBONATE 800 MG TABLET PO SCH ×3 (08:06→18:13)
[2019-01-07] MEDS: FOLIC ACID 1 MG TAB PO SCH (08:06)
[2019-01-07] MEDS: PHENYTOIN 100 MG CAP PO SCH ×3 (08:06→20:45)
--- NOTE | 2019-01-07 08:09 | PN ---
DATE: 01/07/2019 SUBJECTIVE: The patient is stable, no events overnight. No fevers, chills, nausea, vomiting. OBJECTIVE: VITAL SIGNS: Blood pressure is 97/63, respiration 19, pulse 84, temperature 98.1. HEENT: Head is normocephalic. NECK: Supple. HEART: Regular rate. LUNGS: Show diminished breath sounds at the base. ABDOMEN: Soft, nontender to palpation without rebound or guarding. EXTREMITIES: Negative for clubbing, cyanosis, no edema. DERMATOLOGIC: No rashes. MUSCULOSKELETAL: No joint effusion. NEUROLOGIC: No change in exam. MEDICATIONS: Have been reviewed. LABORATORY DATA: Has been reviewed. IMAGING STUDIES: Have been reviewed. ASSESSMENT AND PLAN: 1. Hypomagnesemia, etiology secondary to ETOH abuse causing renal magnesium wasting. Plan is to con tinue to monitor and replete with magnesium sulfate. Expect improvement in 4-6 weeks after abstaining from alcohol. 2. Renal insufficiency, possible chronic kidney disease versus acute kidney injury. Renal function remains stable. We will continue to monitor. The patient's creatinine is slowly increasing. Will c ontinue to monitor, continue supportive care, renally dose all medication. 3. Mineral bone disorder, monitor calcium and phosphorus levels. Will start patient on phosphate bi nders. 4. Acute encephalopathy, etiology is toxic metabolic. 5. History of ETOH abuse. Continue to monitor. 6. Transaminitis secondary to ETOH abuse. Continue to monitor. Dictated By: IDANIA MAHARAJ DO NR/NTS Conf#: [id number] DID#: [id number] CC: ROSA HALL MD;*EndCC*
[2019-01-07] MEDS: DIPHENHYDRAMINE 50 MG INJ IV PRN (12:29)
[2019-01-07 14:03] VITALS: BP 145/87; PULSE 95; RESP 19
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
[2019-01-07 20:02] VITALS: BP 111/71; PULSE 91; RESP 18
[2019-01-07 20:51] VITALS: BP 116/72; PULSE 96; RESP 18
[2019-01-08 01:46] VITALS: BP 114/74; PULSE 89; RESP 18
[2019-01-08 08:20] VITALS: BP 118/73; PULSE 86; RESP 19
[2019-01-08] MEDS: LEVETIRACETAM 750 MG TAB PO SCH ×2 (08:26→20:58)
[2019-01-08] MEDS: CHOLECALCIFEROL 1,000 UNIT TAB PO SCH (08:26)
[2019-01-08] MEDS: FERROUS SULFATE (EC) 325 MG TAB PO SCH (08:26)
[2019-01-08] MEDS: SEVELAMER CARBONATE 800 MG TABLET PO SCH ×3 (08:26→17:38)
[2019-01-08] MEDS: THIAMINE 100 MG TAB PO SCH (08:27)
[2019-01-08] MEDS: PHENYTOIN 100 MG CAP PO SCH ×3 (08:27→20:57)
[2019-01-08] MEDS: FOLIC ACID 1 MG TAB PO SCH (08:27)
[2019-01-08] MEDS: SERTRALINE 100 MG TAB PO SCH (08:28)
[2019-01-08] MEDS: LORATADINE 10 MG TAB PO SCH (08:28)
--- NOTE | 2019-01-08 09:12 | PN ---
DATE: 01/08/2019 SUBJECTIVE: The patient is stable, no events overnight. OBJECTIVE: VITAL SIGNS: Blood pressure is 145/87, pulse 96, respiration 19, temperature 98.6. HEENT: Head is normocephalic. NECK: Supple. HEART: Regular rate. LUNGS: Show diminished breath sounds at the base. ABDOMEN: Soft, nontender to palpation without rebound or guarding. EXTREMITIES: Negative for clubbing, cyanosis, no edema. DERMATOLOGIC: No rashes. MUSCULOSKELETAL: No joint effusion. NEUROLOGIC: No change in exam. MEDICATIONS: The patient's medications have been reviewed. LABORATORY DATA: Have been reviewed. IMAGING STUDIES: Have been reviewed. ASSESSMENT AND PLAN: 1. Hypomagnesemia. Etiology is secondary to ETOH abuse causing renal magnesium wasting. We will co ntinue to monitor and replete. Expect improvement in 4 to 6 weeks after abstaining from alcohol. 2. Renal insufficiency, possible chronic kidney disease versus acute kidney injury. The patient's r enal function is overall stable. Continue to monitor creatinine. Continue supportive care and renal ly dose all meds. 3. Mineral bone disorder. The patient is hyperphosphatemic. Continue phos binders. 4. Acute encephalopathy. Etiology is toxic metabolic. 5. Severe ETOH abuse. Continue to monitor. 6. Transaminitis. Continue to monitor. Dictated By: IDANIA LAMBERT/NTS Conf#: [id number] DID#: [id number] CC: MAEGAN TREADWELL; ESTEPHANIA ALFONSO MD; ROSA HALL MD;*End*
[2019-01-08 14:00] VITALS: BP 112/71; PULSE 87; RESP 19
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
[2019-01-08] MEDS: DIPHENHYDRAMINE 50 MG INJ IV PRN (17:47)
[2019-01-08 20:17] VITALS: BP 122/70; PULSE 82; RESP 19
[2019-01-09] MEDS: DIPHENHYDRAMINE 25 MG CAP PO PRN ×2 (00:10→20:16)
[2019-01-09 02:19] VITALS: BP 144/73; PULSE 72; RESP 20
[2019-01-09] MEDS ORDERED: MAGNESIUM SULFATE 2 GM/50 ML 50 ML IVPB ONE (07:30)
[2019-01-09 08:00] VITALS: BP 119/73; PULSE 79; RESP 18
[2019-01-09] MEDS: LORATADINE 10 MG TAB PO SCH (08:07)
[2019-01-09] MEDS: FERROUS SULFATE (EC) 325 MG TAB PO SCH (08:07)
[2019-01-09] MEDS: PHENYTOIN 100 MG CAP PO SCH ×3 (08:07→20:16)
[2019-01-09] MEDS: THIAMINE 100 MG TAB PO SCH (08:07)
[2019-01-09] MEDS: SERTRALINE 100 MG TAB PO SCH (08:07)
[2019-01-09] MEDS: SEVELAMER CARBONATE 800 MG TABLET PO SCH ×3 (08:07→17:23)
[2019-01-09] MEDS: LEVETIRACETAM 750 MG TAB PO SCH ×2 (08:07→20:16)
[2019-01-09] MEDS: FOLIC ACID 1 MG TAB PO SCH (08:07)
[2019-01-09] MEDS: CHOLECALCIFEROL 1,000 UNIT TAB PO SCH (08:07)
--- NOTE | 2019-01-09 09:28 | PN ---
DATE: 01/09/2019 SUBJECTIVE: The patient is stable, no events overnight. No fevers, chills, nausea, vomiting. OBJECTIVE: VITAL SIGNS: Blood pressure is 144/73, respirations 20, pulse 70, temperature 98.0. HEENT: Head is normocephalic. NECK: Supple. HEART: Regular rate. LUNGS: Show diminished breath sounds at the base. ABDOMEN: Soft, nontender to palpation without rebound or guarding. EXTREMITIES: Negative for clubbing, cyanosis, no edema. DERMATOLOGIC: No rashes. MUSCULOSKELETAL: No joint effusion. NEUROLOGIC: No change in exam. MEDICATIONS: Reviewed. LABORATORY DATA: Has been reviewed. IMAGES: Has been reviewed. ASSESSMENT AND PLAN: 1. Hypomagnesemia, etiology secondary to EtOH abuse causing renal magnesium wasting, need to monitor and replete. 2. Renal insufficiency, possible chronic kidney disease versus acute kidney injury. Renal function is overall stable. Continue current treatment plan, supportive care, renally renally dose all meds. 3. Mineral bone disorder. Continue phosphate binders, monitor calcium and phosphorus levels. 4. Acute encephalopathy, etiology is toxic metabolic. 5. History of EtOH abuse. 6. Transaminitis. Continue to monitor. Dictated By: IDANIA MAHARAJ DO NR/NTS Conf#: [id number] DID#: [id number] CC: ROSA HALL MD;*EndCC*
[2019-01-09 14:00] VITALS: BP 127/82; PULSE 91; RESP 18
--- NOTE | 2019-01-09 14:30 | PN ---
Date/Time of Note Date/Time of Note DATE: 01/09/19 TIME: 14:28 Assessment/Plan VTE Prophylaxis Risk score (from Ns)>0 risk: 1 SCD applied (from Ns): No SCD contraindicated: low risk/ambulating Pharmacological prophylaxis: NA/contraindicated Pharm contraindication: low risk/ambulating Lines/Catheters [facility] Urinary Cath still in place: No Assessment/Plan Assessment/Plan 1. Acute on chronic encephalopathy, most likely metabolic-toxic etiology - patient at baseline and most likely due to history of alcohol use since 18 years old - psych consultation appreciated and patient capable of making her own decisions - Neurology on board and appreciate recommendations - MRI results noted with no acute abnormalities - Librium taper completed 2. Seizure disorder - continue on Dilantin and Keppra - seizure precautions - Ativan PRN - Appreciate neurology consultation 3. Hyponatremia- resolved 4. Alcoholic hepatitis- improved - monitor LFTs - continue on folate, and thiamine 5. Alcohol abuse - counseled about cessation - concern for possible Wernicke's encephalopathy. was on high dose thiamine - Librium taper completed and monitor for DTs 6. Normocytic anemia, hx of iron deficiency - iron studies noted - no need for transfusions at this time - cont home ferrous sulfate 7. Right eye blindness - Stable 8. CALLIE - encourage PO hydration - Nephrology consultation appreciated 9. hypomagnesia - replacing 10. Disposition - on board for placement and awaiting bed availability Result Diagram: 01/09/195 01/09/195 Results 24hrs Laboratory Tests Test 01/09/19 04:45 01/09/19 10:50 White Blood Count 6.7 Red Blood Count 3.01 L Hemoglobin 10.1 L Hematocrit 32.0 L Mean Corpuscular Volume 106.3 H Mean Corpuscular Hemoglobin 33.6 H Mean Corpuscular Hemoglobin Concent 31.6 L Red Cell Distribution Width 13.1 Platelet Count 277 Mean Platelet Volume 10.8 H Immature Granulocytes % 0.600 H Neutrophils % 48.9 Lymphocytes % 39.2 Monocytes % 7.2 Eosinophils % 2.5 Basophils % 1.6 Nucleated Red Blood Cells % 0.0 Immature Granulocytes # 0.040 H Neutrophils # 3.3 Lymphocytes # 2.6 Monocytes # 0.5 Eosinophils # 0.2 Basophils # 0.1 Nucleated Red Blood Cells # 0.0 Sodium Level 143 Potassium Level 4.8 Chloride Level 104 Carbon Dioxide Level 28 Anion Gap 11 Blood Urea Nitrogen 41 H Creatinine 1.04 H Est Glomerular Filtrat Rate mL/min 55 L Glucose Level 111 Calcium Level 10.2 Phosphorus Level 6.6 H Magnesium Level 1.5 L Lab Scanned Report REFERENCE LAB Subjective 24 Hr Interval Summary Free Text/Dictation Patient doing well and denies any acute issues. Still with flight of ideas and pressured speech. Exam/Review of Systems Exam Vitals Vital Signs Date Temp Pulse Resp B/P (MAP) Pulse Ox O2 O2 Flow FiO2 Time Delivery Rate 01/09/19 98.5 79 18 119/73 98 08:00 (88) 01/07/19 Room Air 20:02 Intake and Output 01/08/19 01/08/19 01/09/19 1515:00 23:00 07:00 IntakeIntake Total 300 ml 1100 ml 450 ml BalanceBalance 300 ml 1100 ml 450 ml Exam General: Patient is laying in bed and answers questions appropriately Respiratory: Clear to auscultation bilaterally. no wheezing or rhonchi Cardiovascular: regular rate and rhythm, no obvious murmurs Gastrointestinal: soft, non-tender to palpation, bowel sounds heard. Neurological: Moves all extremities spontaneously Psych: pressured speech, flight of ideas Skin: No new skin lesions Results Results 24hrs Laboratory Tests Test 01/09/19 04:45 01/09/19 10:50 White Blood Count 6.7 Red Blood Count 3.01 L Hemoglobin 10.1 L Hematocrit 32.0 L Mean Corpuscular Volume 106.3 H Mean Corpuscular Hemoglobin 33.6 H Mean Corpuscular Hemoglobin Concent 31.6 L Red Cell Distribution Width 13.1 Platelet Count 277 Mean Platelet Volume 10.8 H Immature Granulocytes % 0.600 H Neutrophils % 48.9 Lymphocytes % 39.2 Monocytes % 7.2 Eosinophils % 2.5 Basophils % 1.6 Nucleated Red Blood Cells % 0.0 Immature Granulocytes # 0.040 H Neutrophils # 3.3 Lymphocytes # 2.6 Monocytes # 0.5 Eosinophils # 0.2 Basophils # 0.1 Nucleated Red Blood Cells # 0.0 Sodium Level 143 Potassium Level 4.8 Chloride Level 104 Carbon Dioxide Level 28 Anion Gap 11 Blood Urea Nitrogen 41 H Creatinine 1.04 H Est Glomerular Filtrat Rate mL/min 55 L Glucose Level 111 Calcium Level 10.2 Phosphorus Level 6.6 H Magnesium Level 1.5 L Lab Scanned Report REFERENCE LAB Medications Medication Current Medications IV Flush (NS 3 ml) 3 ml PER PROTOCOL IV ; Start 12/26/18 at 04:30 Ondansetron HCl (Zofran Inj) 4 mg Q6H PRN IV NAUSEA/VOMITING; Start 12/26/18 at 04:30 Acetaminophen (Tylenol Tab) 650 mg Q6H PRN PO .PAIN 1-3 OR TEMP; Start 12/26/18 at 04:30 Docusate Sodium (Colace) 100 mg Q12H PRN PO .CONSTIPATION; Start 12/26/18 at 04:30 Bisacodyl (Dulcolax) 5 mg DAILY PRN PO .CONSTIPATION; Start 12/26/18 at 04:30 Lorazepam (Ativan) 1 mg [id number] PRN IV SEIZURES; Start 12/26/18 at 06:00 Lorazepam (Ativan) 1 mg Q4H PRN IV CONTROL WITHDRAWAL SYMPTOMS Last administered on 12/29/18at 20:46; Admin Dose 1 MG; Start 12/26/18 at 08:00 Levetiracetam (Keppra) 1,500 mg BID PO Last administered on 01/09/19 08:07; Admin Dose 1,500 MG; Start 12/26/18 at 09:00 Diphenhydramine/ Zinc Oxide (Benadryl 1% Cr) 1 applic Q6 PRN TOP itching; Start 12/26/18 at 10:30 Haloperidol (Haldol) 2 mg Q6H PRN IM agitation; Start 12/26/18 at 16:30 Folic Acid (Folic Acid) 1 mg DAILY PO Last administered on 01/09/19at 08:07; Admin Dose 1 MG; Start 12/28/18 at 09:00 Thiamine HCl (Vitamin B1) 100 mg DAILY PO Last administered on 01/09/19 08:07; Admin Dose 100 MG; Start 12/31/18 at 09:00 Ferrous Sulfate (Ferrous Sulfate (Ec)) 325 mg DAILY PO Last administered on 01/09/19 08:07; Admin Dose 325 MG; Start 12/31/18 at 13:00 Phenytoin (Dilantin) 100 mg TID PO Last administered on 01/09/19at 12:35; Admin Dose 100 MG; Start 12/31/18 at 13:00 Sertraline HCl (Zoloft) 100 mg DAILY PO Last administered on 01/09/19 08:07; Admin Dose 100 MG; Start 01/02/19 at 09:00 Loratadine (Claritin) 10 mg DAILY PO Last administered on 01/09/19 08:07; Admin Dose 10 MG; Start 01/02/19 at 09:00 Hydrocortisone 1 applic TID PRN TOP ITCHING Last administered on 01/05/19 08:06; Admin Dose 1 APPLIC; Start 01/02/19 at 06:00 Miscellaneous Information (* Miscellaneous Pharmacy Order) PATIENT'S OWN MED IS ... DAILY XX ; Start 01/03/19 at 09:00 Cholecalciferol (Vitamin D) 1,000 unit DAILY PO Last administered on 01/09/19 08:07; Admin Dose 1,000 UNIT; Start 01/05/19 at 09:00 Sevelamer Carbonate (Renvela) 800 mg WITH MEALS PO Last administered on 01/09/19 12:34; Admin Dose 800 MG; Start 01/07/19 at 07:35 Diphenhydramine HCl (Benadryl) 25 mg Q6H PRN PO ITCHING Last administered on 01/09/19 00:10; Admin Dose 25 MG; Start 01/08/19 at 23:00 ESTEPHANIA ALFONSO MD Jan 09, 2019 14:30
[2019-01-09 21:19] VITALS: BP 113/67; PULSE 83; RESP 18
[2019-01-10 02:25] VITALS: BP 120/81; PULSE 85; RESP 18
[2019-01-10] MEDS: FERROUS SULFATE (EC) 325 MG TAB PO SCH (08:34)
[2019-01-10] MEDS: PHENYTOIN 100 MG CAP PO SCH ×3 (08:34→20:34)
[2019-01-10] MEDS: CHOLECALCIFEROL 1,000 UNIT TAB PO SCH (08:34)
[2019-01-10] MEDS: LEVETIRACETAM 750 MG TAB PO SCH ×2 (08:34→20:34)
[2019-01-10] MEDS: SEVELAMER CARBONATE 800 MG TABLET PO SCH ×3 (08:34→17:49)
[2019-01-10] MEDS: THIAMINE 100 MG TAB PO SCH (08:35)
[2019-01-10] MEDS: FOLIC ACID 1 MG TAB PO SCH (08:35)
[2019-01-10] MEDS: LORATADINE 10 MG TAB PO SCH (08:35)
[2019-01-10] MEDS: SERTRALINE 100 MG TAB PO SCH (08:35)
[2019-01-10 08:50] VITALS: BP 123/71; PULSE 91; RESP 15
--- NOTE | 2019-01-10 09:05 | PN ---
DATE: 01/10/2019 SUBJECTIVE: The patient is stable. No events overnight. OBJECTIVE: VITAL SIGNS: Blood pressure is 127/82, pulse 91, temperature 98.5. HEENT: Head is normocephalic. NECK: Supple. HEART: Regular rate. LUNGS: Show diminished breath sounds at the base. ABDOMEN: Soft, nontender to palpation without rebound or guarding. EXTREMITIES: Negative for clubbing, cyanosis, no edema. DERMATOLOGIC: No rashes. MUSCULOSKELETAL: No joint effusions. NEUROLOGIC: No change in exam. MEDICATIONS: The patient's medications have been reviewed. LABORATORY DATA: Has been reviewed. IMAGING STUDIES: Have been reviewed. ASSESSMENT AND PLAN: 1. Hypomagnesemia. Etiology is secondary to ETOH use and renal magnesium wasting. The patient's ur inary magnesium levels were inappropriately elevated. Given levels of hypomagnesemia, these findings are consistent with renal wasting. We will continue to monitor and replete. Expect correction of h ypomagnesemia after sobriety is maintained for approximately 2 months. 2. Renal insufficiency, possible chronic kidney disease. Continue to monitor. Continue supportive care, renally dose all meds. 3. Mineral bone disorder. Monitor calcium and phosphorus levels. Continue phos binders. 4. Acute encephalopathy. Etiology is toxic metabolic. 5. History of ETOH abuse. 6. Transaminitis. Continue to monitor. Dictated By: IDANIA LAMBERT/NTS Conf#: [id number] DID#: [id number] CC: ROSA HALL MD;*EndCC*
--- NOTE | 2019-01-10 11:39 | PN ---
Date/Time of Note Date/Time of Note DATE: 01/10/19 TIME: 11:37 Assessment/Plan VTE Prophylaxis Risk score (from Nsg)>0 risk: 1 SCD applied (from Ns): No SCD contraindicated: low risk/ambulating Pharmacological prophylaxis: NA/contraindicated Pharm contraindication: low risk/ambulating Lines/Catheters IV [facility] (from [facility] Mid Line Urinary Cath still in place: No Assessment/Plan Assessment/Plan 1. Acute on chronic encephalopathy, most likely metabolic-toxic etiology- improved - patient at baseline and most likely due to history of alcohol use since 18 years old - psych consultation appreciated and patient capable of making her own decisions - Neurology on board and appreciate recommendations - MRI results noted with no acute abnormalities 2. Seizure disorder - continue on Dilantin and Keppra - seizure precautions - Ativan PRN - Appreciate neurology consultation 3. Hyponatremia- resolved 4. Alcoholic hepatitis- improved - monitor LFTs - continue on folate, and thiamine 5. Alcohol abuse - counseled about cessation - concern for possible Wernicke's encephalopathy. was on high dose thiamine - Librium taper completed and monitor for DTs 6. Normocytic anemia, hx of iron deficiency - iron studies noted - no need for transfusions at this time - cont home ferrous sulfate 7. Right eye blindness - Stable 8. CALLIE - encourage PO hydration - Nephrology consultation appreciated 9. hypomagnesia - replacing 10. Disposition - on board for placement and awaiting bed availability Result Diagram: 01/09/195 01/09/19444 Subjective 24 Hr Interval Summary Free Text/Dictation Patient denies any acute issues. Noted with blisters on lips and does admit to be bothersome. No acute overnight events. Exam/Review of Systems Exam Vitals Vital Signs Date Temp Pulse Resp B/P (MAP) Pulse Ox O2 O2 Flow FiO2 Time Delivery Rate 01/10/19 98.5 91 15 123/71 96 Room Air 08:50 (88) Intake and Output 01/09/19 01/09/19 01/10/19 1515:00 23:00 07:00 IntakeIntake Total 570 ml 240 ml BalanceBalance 570 ml 240 ml Exam General: Patient is laying in bed and answers questions appropriately mouth: ulcers left upper lip with scabbing and right lower lip. no discharge or drainage Respiratory: Clear to auscultation bilaterally. no wheezing or rhonchi Cardiovascular: regular rate and rhythm, no obvious murmurs Gastrointestinal: soft, non-tender to palpation, bowel sounds heard. Neurological: Moves all extremities spontaneously Psych: pressured speech, flight of ideas Skin: No new skin lesions Medications Medication Current Medications IV Flush (NS 3 ml) 3 ml PER PROTOCOL IV ; Start 12/26/18 at 04:30 Ondansetron HCl (Zofran Inj) 4 mg Q6H PRN IV NAUSEA/VOMITING; Start 12/26/18 at 04:30 Acetaminophen (Tylenol Tab) 650 mg Q6H PRN PO .PAIN 1-3 OR TEMP; Start 12/26/18 at 04:30 Docusate Sodium (Colace) 100 mg Q12H PRN PO .CONSTIPATION; Start 12/26/18 at 04:30 Bisacodyl (Dulcolax) 5 mg DAILY PRN PO .CONSTIPATION; Start 12/26/18 at 04:30 Lorazepam (Ativan) 1 mg [id number] PRN IV SEIZURES; Start 12/26/18 at 06:00 Lorazepam (Ativan) 1 mg Q4H PRN IV CONTROL WITHDRAWAL SYMPTOMS Last administered on 12/29/18at 20:46; Admin Dose 1 MG; Start 12/26/18 at 08:00 Levetiracetam (Keppra) 1,500 mg BID PO Last administered on 01/10/19 08:34; Admin Dose 1,500 MG; Start 12/26/18 at 09:00 Diphenhydramine/ Zinc Oxide (Benadryl 1% Cr) 1 applic Q6 PRN TOP itching; Start 12/26/18 at 10:30 Haloperidol (Haldol) 2 mg Q6H PRN IM agitation; Start 12/26/18 at 16:30 Folic Acid (Folic Acid) 1 mg DAILY PO Last administered on 01/10/19 08:35; Admin Dose 1 MG; Start 12/28/18 at 09:00 Thiamine HCl (Vitamin B1) 100 mg DAILY PO Last administered on 01/10/19 08:35; Admin Dose 100 MG; Start 12/31/18 at 09:00 Ferrous Sulfate (Ferrous Sulfate (Ec)) 325 mg DAILY PO Last administered on 01/10/19 08:34; Admin Dose 325 MG; Start 12/31/18 at 13:00 Phenytoin (Dilantin) 100 mg TID PO Last administered on 01/10/19 08:34; Admin Dose 100 MG; Start 12/31/18 at 13:00 Sertraline HCl (Zoloft) 100 mg DAILY PO Last administered on 01/10/19 08:35; Admin Dose 100 MG; Start 01/02/19 at 09:00 Loratadine (Claritin) 10 mg DAILY PO Last administered on 01/10/19 08:35; Admin Dose 10 MG; Start 01/02/19 at 09:00 Hydrocortisone 1 applic TID PRN TOP ITCHING Last administered on 01/05/19 08:06; Admin Dose 1 APPLIC; Start 01/02/19 at 06:00 Miscellaneous Information (* Miscellaneous Pharmacy Order) PATIENT'S OWN MED IS ... DAILY XX ; Start 01/03/19 at 09:00 Cholecalciferol (Vitamin D) 1,000 unit DAILY PO Last administered on 01/10/19 08:34; Admin Dose 1,000 UNIT; Start 01/05/19 at 09:00 Sevelamer Carbonate (Renvela) 800 mg WITH MEALS PO Last administered on 01/10/19 08:34; Admin Dose 800 MG; Start 01/07/19 at 07:35 Diphenhydramine HCl (Benadryl) 25 mg Q6H PRN PO ITCHING Last administered on 01/09/19 20:16; Admin Dose 25 MG; Start 01/08/19 at 23:00 ESTEPHANIA ALFONSO MD Jan 10, 2019 11:39
[2019-01-10] MEDS: DOCOSANOL 2 GM CREAM TOP SCH ×4 (13:56→20:34)
[2019-01-10 14:49] VITALS: BP 122/79; PULSE 87; RESP 17
[2019-01-10 21:39] VITALS: BP 120/80; PULSE 87; RESP 18
[2019-01-11 02:30] VITALS: BP 118/78; PULSE 80; RESP 20
[2019-01-11 07:43] VITALS: BP 126/75; PULSE 94; RESP 16
[2019-01-11] MEDS: SEVELAMER CARBONATE 800 MG TABLET PO SCH ×3 (07:53→17:21)
[2019-01-11] MEDS ORDERED: MAGNESIUM SULFATE 2 GM/50 ML 50 ML IVPB ONE (08:00)
[2019-01-11] MEDS: FERROUS SULFATE (EC) 325 MG TAB PO SCH (08:59)
[2019-01-11] MEDS: CHOLECALCIFEROL 1,000 UNIT TAB PO SCH (08:59)
[2019-01-11] MEDS: LEVETIRACETAM 750 MG TAB PO SCH ×2 (08:59→20:53)
[2019-01-11] MEDS: MAGNESIUM OXIDE 400 MG TAB PO SCH (08:59)
[2019-01-11] MEDS: PHENYTOIN 100 MG CAP PO SCH ×3 (08:59→20:53)
[2019-01-11] MEDS: FOLIC ACID 1 MG TAB PO SCH (08:59)
[2019-01-11] MEDS: THIAMINE 100 MG TAB PO SCH (08:59)
[2019-01-11] MEDS: LORATADINE 10 MG TAB PO SCH (08:59)
[2019-01-11] MEDS: SERTRALINE 100 MG TAB PO SCH (08:59)
[2019-01-11] MEDS: DIPHENHYDRAMINE 25 MG CAP PO PRN ×2 (09:02→20:54)
--- NOTE | 2019-01-11 09:12 | PN ---
DATE: 01/11/2019 SUBJECTIVE: The patient is stable. No events overnight. No fevers, chills, nausea or vomiting. OBJECTIVE: VITAL SIGNS: Blood pressure is 178, respirations 20, pulse 80, temperature 98.6. HEENT: Head is normocephalic. NECK: Supple. HEART: Regular rate. LUNGS: Show diminished breath sounds at the base. ABDOMEN: Soft, nontender to palpation without rebound or guarding. EXTREMITIES: Negative for clubbing, cyanosis, no edema. DERMATOLOGIC: No rashes. MUSCULOSKELETAL: No joint effusion. NEUROLOGIC: No change in exam. MEDICATIONS: Have been reviewed. LABORATORY DATA: Has been reviewed. IMAGING STUDIES: Have been reviewed. ASSESSMENT AND PLAN: 1. Hypomagnesemia, secondary to ETOH causing renal magnesium wasting. We will continue to monitor a nd replete. Will start the patient on magnesium oxide 400 mg daily. Continue IV magnesium sulfate a s needed. 2. Renal insufficiency, chronic kidney disease. Continue to monitor, continue supportive care. 3. Mineral bone disorder. Continue phosphate binders, monitor calcium and phosphorus levels. 4. Acute encephalopathy, etiology is toxic metabolic. 5. History of ETOH abuse. 6. Transaminitis. Continue to monitor. Dictated By: IDANIA LAMBERT/ALVINA Conf#: [id number] DID#: [id number] CC: ROSA HALL MD;*End*
--- NOTE | 2019-01-11 11:36 | PN ---
Date/Time of Note Date/Time of Note DATE: 01/11/19 TIME: 11:34 Assessment/Plan VTE Prophylaxis Risk score (from Ns)>0 risk: 2 SCD applied (from Ns): Yes Pharmacological prophylaxis: NA/contraindicated Pharm contraindication: low risk/ambulating Lines/Catheters IV Catheter Type (from Nrsg): Mid Line Urinary Cath still in place: No Assessment/Plan Assessment/Plan 1. Lesions on lip - started on Abreva and advised not to irritate area 2. Acute on chronic encephalopathy, most likely metabolic-toxic etiology- improved - patient at baseline and most likely due to history of alcohol use since 18 years old - psych consultation appreciated and patient capable of making her own decisions - Neurology on board and appreciate recommendations - MRI results noted with no acute abnormalities 3. Seizure disorder - continue on Dilantin and Keppra - seizure precautions - Ativan PRN - Appreciate neurology consultation 4. Hypomagnesemia - replaced and started on daily PO supplements 5. Alcoholic hepatitis- improved - monitor LFTs - continue on folate, and thiamine 6. Alcohol abuse - counseled about cessation - concern for possible Wernicke's encephalopathy. was on high dose thiamine - Librium taper completed and monitor for DTs 7. Normocytic anemia, hx of iron deficiency - iron studies noted - no need for transfusions at this time - cont home ferrous sulfate 8. Right eye blindness - Stable 9. CALLIE - encourage PO hydration - Nephrology consultation appreciated 10. Disposition - on board for placement and awaiting bed availability Result Diagram: 01/11/19 0502 01/11/19 0502 Results 24hrs Laboratory Tests Test 01/11/19 05:02 White Blood Count 6.6 Red Blood Count 2.89 L Hemoglobin 10.0 L Hematocrit 30.4 L Mean Corpuscular Volume 105.2 H Mean Corpuscular Hemoglobin 34.6 H Mean Corpuscular Hemoglobin Concent 32.9 Red Cell Distribution Width 12.6 Platelet Count 246 Mean Platelet Volume 11.1 H Immature Granulocytes % 0.500 H Neutrophils % 52.2 Lymphocytes % 34.4 Monocytes % 8.2 Eosinophils % 3.3 Basophils % 1.4 Nucleated Red Blood Cells % 0.0 Immature Granulocytes # 0.030 Neutrophils # 3.4 Lymphocytes # 2.3 Monocytes # 0.5 Eosinophils # 0.2 Basophils # 0.1 Nucleated Red Blood Cells # 0.0 Sodium Level 139 Potassium Level 4.4 Chloride Level 104 Carbon Dioxide Level 27 Anion Gap 8 Blood Urea Nitrogen 38 H Creatinine 1.09 H Est Glomerular Filtrat Rate mL/min 52 L Glucose Level 107 Calcium Level 10.2 Phosphorus Level 6.6 H Magnesium Level 1.5 L Subjective 24 Hr Interval Summary Free Text/Dictation Patient still with sores on lips and generalized pruritus. no acute overnight events. Exam/Review of Systems Exam Vitals Vital Signs Date Temp Pulse Resp B/P (MAP) Pulse Ox O2 O2 Flow FiO2 Time Delivery Rate 01/11/19 97.8 94 16 126/75 99 07:43 (92) 01/10/19 Room Air 21:39 Intake and Output 01/10/19 01/10/19 01/11/19 1515:00 23:00 07:00 IntakeIntake Total 460 ml 300 ml BalanceBalance 460 ml 300 ml Exam General: Patient is sitting up in bed, no acute distress mouth: ulcers left upper lip with scabbing and right lower lip. no discharge or drainage Respiratory: Clear to auscultation bilaterally. no wheezing or rhonchi Cardiovascular: regular rate and rhythm, no obvious murmurs Gastrointestinal: soft, non-tender to palpation, bowel sounds heard. Neurological: Moves all extremities spontaneously Psych: pressured speech, flight of ideas Skin: No new skin lesions Results Results 24hrs Laboratory Tests Test 01/11/19 05:02 White Blood Count 6.6 Red Blood Count 2.89 L Hemoglobin 10.0 L Hematocrit 30.4 L Mean Corpuscular Volume 105.2 H Mean Corpuscular Hemoglobin 34.6 H Mean Corpuscular Hemoglobin Concent 32.9 Red Cell Distribution Width 12.6 Platelet Count 246 Mean Platelet Volume 11.1 H Immature Granulocytes % 0.500 H Neutrophils % 52.2 Lymphocytes % 34.4 Monocytes % 8.2 Eosinophils % 3.3 Basophils % 1.4 Nucleated Red Blood Cells % 0.0 Immature Granulocytes # 0.030 Neutrophils # 3.4 Lymphocytes # 2.3 Monocytes # 0.5 Eosinophils # 0.2 Basophils # 0.1 Nucleated Red Blood Cells # 0.0 Sodium Level 139 Potassium Level 4.4 Chloride Level 104 Carbon Dioxide Level 27 Anion Gap 8 Blood Urea Nitrogen 38 H Creatinine 1.09 H Est Glomerular Filtrat Rate mL/min 52 L Glucose Level 107 Calcium Level 10.2 Phosphorus Level 6.6 H Magnesium Level 1.5 L Medications Medication Current Medications IV Flush (NS 3 ml) 3 ml PER PROTOCOL IV ; Start 12/26/18 at 04:30 Ondansetron HCl (Zofran Inj) 4 mg Q6H PRN IV NAUSEA/VOMITING; Start 12/26/18 at 04:30 Acetaminophen (Tylenol Tab) 650 mg Q6H PRN PO .PAIN 1-3 OR TEMP; Start 12/26/18 at 04:30 Docusate Sodium (Colace) 100 mg Q12H PRN PO .CONSTIPATION; Start 12/26/18 at 04:30 Bisacodyl (Dulcolax) 5 mg DAILY PRN PO .CONSTIPATION; Start 12/26/18 at 04:30 Lorazepam (Ativan) 1 mg [id number] PRN IV SEIZURES; Start 12/26/18 at 06:00 Lorazepam (Ativan) 1 mg Q4H PRN IV CONTROL WITHDRAWAL SYMPTOMS Last administered on 12/29/18at 20:46; Admin Dose 1 MG; Start 12/26/18 at 08:00 Levetiracetam (Keppra) 1,500 mg BID PO Last administered on 01/11/19 08:59; Admin Dose 1,500 MG; Start 12/26/18 at 09:00 Diphenhydramine/ Zinc Oxide (Benadryl 1% Cr) 1 applic Q6 PRN TOP itching; Start 12/26/18 at 10:30 Haloperidol (Haldol) 2 mg Q6H PRN IM agitation; Start 12/26/18 at 16:30 Folic Acid (Folic Acid) 1 mg DAILY PO Last administered on 01/11/19 08:59; Admin Dose 1 MG; Start 12/28/18 at 09:00 Thiamine HCl (Vitamin B1) 100 mg DAILY PO Last administered on 01/11/19 08:59; Admin Dose 100 MG; Start 12/31/18 at 09:00 Ferrous Sulfate (Ferrous Sulfate (Ec)) 325 mg DAILY PO Last administered on 01/11/19 08:59; Admin Dose 325 MG; Start 12/31/18 at 13:00 Phenytoin (Dilantin) 100 mg TID PO Last administered on 01/11/19 08:59; Admin Dose 100 MG; Start 12/31/18 at 13:00 Sertraline HCl (Zoloft) 100 mg DAILY PO Last administered on 01/11/19 08:59; Admin Dose 100 MG; Start 01/02/19 at 09:00 Loratadine (Claritin) 10 mg DAILY PO Last administered on 01/11/19 08:59; Admin Dose 10 MG; Start 01/02/19 at 09:00 Hydrocortisone 1 applic TID PRN TOP ITCHING Last administered on 01/05/19 08:06; Admin Dose 1 APPLIC; Start 01/02/19 at 06:00 Miscellaneous Information (* Miscellaneous Pharmacy Order) PATIENT'S OWN MED IS ... DAILY XX Last administered on 01/11/19 09:48; Admin Dose 1 EA; Start 01/03/19 at 09:00 Cholecalciferol (Vitamin D) 1,000 unit DAILY PO Last administered on 01/11/19 08:59; Admin Dose 1,000 UNIT; Start 01/05/19 at 09:00 Sevelamer Carbonate (Renvela) 800 mg WITH MEALS PO Last administered on 01/11/19 07:53; Admin Dose 800 MG; Start 01/07/19 at 07:35 Diphenhydramine HCl (Benadryl) 25 mg Q6H PRN PO ITCHING Last administered on 01/11/19 09:02; Admin Dose 25 MG; Start 01/08/19 at 23:00 Docosanol (Abreva) 1 applic 5 TIMES DAILY TOP Last administered on 01/10/19 20:34; Admin Dose 1 APPLIC; Start 01/10/19 at 13:00 Magnesium Oxide (Mag-Ox 400) 400 mg DAILY PO Last administered on 01/11/19 08:59; Admin Dose 400 MG; Start 01/11/19 at 09:00 ESTEPHANIA ALFONSO MD Jan 11, 2019 11:36
[2019-01-11] MEDS: DOCOSANOL 2 GM CREAM TOP SCH ×4 (12:00→20:53)
[2019-01-11 14:00] VITALS: BP 108/63; PULSE 97; RESP 18
[2019-01-11 21:56] VITALS: BP 110/68; PULSE 91; RESP 18
[2019-01-12 02:00] VITALS: BP 97/54; PULSE 94; RESP 18
[2019-01-12 08:00] VITALS: BP 110/73; PULSE 97; RESP 18
[2019-01-12] MEDS: LORATADINE 10 MG TAB PO SCH (08:37)
[2019-01-12] MEDS: SEVELAMER CARBONATE 800 MG TABLET PO SCH ×3 (08:38→17:48)
[2019-01-12] MEDS: FERROUS SULFATE (EC) 325 MG TAB PO SCH (08:38)
[2019-01-12] MEDS: THIAMINE 100 MG TAB PO SCH (08:38)
[2019-01-12] MEDS: SERTRALINE 100 MG TAB PO SCH (08:38)
[2019-01-12] MEDS: MAGNESIUM OXIDE 400 MG TAB PO SCH (08:38)
[2019-01-12] MEDS: CHOLECALCIFEROL 1,000 UNIT TAB PO SCH (08:38)
[2019-01-12] MEDS: LEVETIRACETAM 750 MG TAB PO SCH ×2 (08:39→20:19)
[2019-01-12] MEDS: FOLIC ACID 1 MG TAB PO SCH (08:39)
[2019-01-12] MEDS: DOCOSANOL 2 GM CREAM TOP SCH ×5 (08:39→20:21)
[2019-01-12] MEDS: PHENYTOIN 100 MG CAP PO SCH ×3 (08:39→20:19)
--- NOTE | 2019-01-12 12:28 | CONS ---
Assessment/Plan Assessment/Plan Hospital Course (Demo Recall) 1. Hypomagnesemia, secondary to ETOH causing renal magnesium wasting. We will continue to monitor and replete. mag sulfate 4grams today and cont mag oxide po 2. Renal insufficiency, chronic kidney disease. Continue to monitor, continue supportive care. 3. Mineral bone disorder. Continue phosphate binders, monitor calcium and phosphorus levels. 4. Acute encephalopathy, etiology is toxic metabolic. 5. History of ETOH abuse. 6. Transaminitis. Continue to monitor. Consultation Date/Type/Reason Admit Date/Time Dec 26, 2018 at 04:04 Initial Consult Date Requesting Provider: ROSA HALL Date/Time of Note DATE: 01/12/19 TIME: 12:27 24 HR Interval Summary Free Text/Dictation denies n/v or diarrhea d.w rn gen nad cv rrr pulm ctab abd soft nd nt +bs ext: no edema Exam/Review of Systems Exam Vitals Vital Signs Date Temp Pulse Resp B/P (MAP) Pulse Ox O2 O2 Flow FiO2 Time Delivery Rate 01/12/19 98.5 97 18 110/73 96 08:00 (85) 01/10/19 Room Air 21:39 Intake and Output 01/11/19 01/11/19 01/12/19 1515:00 23:00 07:00 IntakeIntake Total 560 ml 490 ml BalanceBalance 560 ml 490 ml Results Result Diagram: 01/11/19 0502 01/11/19 0502 Medications Medication Current Medications IV Flush (NS 3 ml) 3 ml PER PROTOCOL IV ; Start 12/26/18 at 04:30 Ondansetron HCl (Zofran Inj) 4 mg Q6H PRN IV NAUSEA/VOMITING; Start 12/26/18 at 04:30 Acetaminophen (Tylenol Tab) 650 mg Q6H PRN PO .PAIN 1-3 OR TEMP; Start 12/26/18 at 04:30 Docusate Sodium (Colace) 100 mg Q12H PRN PO .CONSTIPATION; Start 12/26/18 at 04:30 Bisacodyl (Dulcolax) 5 mg DAILY PRN PO .CONSTIPATION; Start 12/26/18 at 04:30 Lorazepam (Ativan) 1 mg [id number] PRN IV SEIZURES; Start 12/26/18 at 06:00 Lorazepam (Ativan) 1 mg Q4H PRN IV CONTROL WITHDRAWAL SYMPTOMS Last administered on 12/29/18 20:46; Admin Dose 1 MG; Start 12/26/18 at 08:00 Levetiracetam (Keppra) 1,500 mg BID PO Last administered on 01/12/19 08:39; Admin Dose 1,500 MG; Start 12/26/18 at 09:00 Diphenhydramine/ Zinc Oxide (Benadryl 1% Cr) 1 applic Q6 PRN TOP itching; Start 12/26/18 at 10:30 Haloperidol (Haldol) 2 mg Q6H PRN IM agitation; Start 12/26/18 at 16:30 Folic Acid (Folic Acid) 1 mg DAILY PO Last administered on 01/12/19 08:39; Admin Dose 1 MG; Start 12/28/18 at 09:00 Thiamine HCl (Vitamin B1) 100 mg DAILY PO Last administered on 01/12/19 08:38; Admin Dose 100 MG; Start 12/31/18 at 09:00 Ferrous Sulfate (Ferrous Sulfate (Ec)) 325 mg DAILY PO Last administered on 01/12/19 08:38; Admin Dose 325 MG; Start 12/31/18 at 13:00 Phenytoin (Dilantin) 100 mg TID PO Last administered on 01/12/19 12:05; Admin Dose 100 MG; Start 12/31/18 at 13:00 Sertraline HCl (Zoloft) 100 mg DAILY PO Last administered on 01/12/19 08:38; Admin Dose 100 MG; Start 01/02/19 at 09:00 Loratadine (Claritin) 10 mg DAILY PO Last administered on 01/12/19 08:37; Admin Dose 10 MG; Start 01/02/19 at 09:00 Hydrocortisone 1 applic TID PRN TOP ITCHING Last administered on 01/05/19 08:06; Admin Dose 1 APPLIC; Start 01/02/19 at 06:00 Miscellaneous Information (* Miscellaneous Pharmacy Order) PATIENT'S OWN MED IS ... DAILY XX Last administered on 01/11/19 09:48; Admin Dose 1 EA; Start 01/03/19 at 09:00 Cholecalciferol (Vitamin D) 1,000 unit DAILY PO Last administered on 01/12/19 08:38; Admin Dose 1,000 UNIT; Start 01/05/19 at 09:00 Sevelamer Carbonate (Renvela) 800 mg WITH MEALS PO Last administered on 01/12/19 12:05; Admin Dose 800 MG; Start 01/07/19 at 07:35 Diphenhydramine HCl (Benadryl) 25 mg Q6H PRN PO ITCHING Last administered on 01/11/19 20:54; Admin Dose 25 MG; Start 01/08/19 at 23:00 Docosanol (Abreva) 1 applic 5 TIMES DAILY TOP Last administered on 01/12/19 12:04; Admin Dose 1 APPLIC; Start 01/10/19 at 13:00 Magnesium Oxide (Mag-Ox 400) 400 mg DAILY PO Last administered on 01/12/19 08:38; Admin Dose 400 MG; Start 01/11/19 at 09:00 ÁLVARO POWERS MD Jan 12, 2019 12:28
[2019-01-12] MEDS ORDERED: MAGNESIUM SULFATE 4 GM/100 ML 100 ML IVPB ONE (12:30)
[2019-01-12 14:00] VITALS: BP 118/63; PULSE 88; RESP 16
--- NOTE | 2019-01-12 16:19 | PN ---
Date/Time of Note Date/Time of Note DATE: 01/12/19 TIME: 16:17 Assessment/Plan VTE Prophylaxis Risk score (from Nsg)>0 risk: 1 SCD applied (from Nsg): No SCD contraindicated: low risk/ambulating Pharmacological prophylaxis: NA/contraindicated Pharm contraindication: low risk/ambulating Lines/Catheters IV Catheter Type (from Nrs): Mid Line Urinary Cath still in place: No Assessment/Plan Assessment/Plan 1. Lesions on lip-improving - started on Abreva and advised not to irritate area - appears to be crusting 2. Acute on chronic encephalopathy, most likely metabolic-toxic etiology- improved - patient at baseline and most likely due to history of alcohol use since 18 years old - psych consultation appreciated and patient capable of making her own decisions - Neurology on board and appreciate recommendations - MRI results noted with no acute abnormalities 3. Seizure disorder - continue on Dilantin and Keppra - seizure precautions - Ativan PRN - Appreciate neurology consultation 4. Hypomagnesemia - replaced and started on daily PO supplements 5. Alcoholic hepatitis- improved - monitor LFTs - continue on folate, and thiamine 6. Alcohol abuse - counseled about cessation - concern for possible Wernicke's encephalopathy. was on high dose thiamine - Librium taper completed and monitor for DTs 7. Normocytic anemia, hx of iron deficiency - iron studies noted - no need for transfusions at this time - cont home ferrous sulfate 8. Right eye blindness - Stable 9. CALLIE - encourage PO hydration - Nephrology consultation appreciated 10. Disposition - on board for placement to SNF - continue replacing electrolytes as needed Result Diagram: 01/11/19 0502 01/11/19 0502 Subjective 24 Hr Interval Summary Free Text/Dictation Patient remains stable and noted with lesions on lips. She knows she has been stressed which may be etiology of ulcers Exam/Review of Systems Exam Vitals Vital Signs Date Temp Pulse Resp B/P (MAP) Pulse Ox O2 O2 Flow FiO2 Time Delivery Rate 01/12/19 98.8 88 16 118/63 95 14:00 (81) 01/10/19 Room Air 21:39 Intake and Output 01/11/19 01/11/19 01/12/19 1515:00 23:00 07:00 IntakeIntake Total 560 ml 490 ml BalanceBalance 560 ml 490 ml Exam General: Patient is sitting up in bed, no acute distress mouth: ulcers left upper lip with scabbing and 2 on lower lip. no discharge or drainage Respiratory: Clear to auscultation bilaterally. no wheezing or rhonchi Cardiovascular: regular rate and rhythm, no obvious murmurs Gastrointestinal: soft, non-tender to palpation, bowel sounds heard. Psych: pressured speech, flight of ideas Medications Medication Current Medications IV Flush (NS 3 ml) 3 ml PER PROTOCOL IV ; Start 12/26/18 at 04:30 Ondansetron HCl (Zofran Inj) 4 mg Q6H PRN IV NAUSEA/VOMITING; Start 12/26/18 at 04:30 Acetaminophen (Tylenol Tab) 650 mg Q6H PRN PO .PAIN 1-3 OR TEMP; Start 12/26/18 at 04:30 Docusate Sodium (Colace) 100 mg Q12H PRN PO .CONSTIPATION; Start 12/26/18 at 04:30 Bisacodyl (Dulcolax) 5 mg DAILY PRN PO .CONSTIPATION; Start 12/26/18 at 04:30 Lorazepam (Ativan) 1 mg [id number] PRN IV SEIZURES; Start 12/26/18 at 06:00 Lorazepam (Ativan) 1 mg Q4H PRN IV CONTROL WITHDRAWAL SYMPTOMS Last administered on 12/29/18 20:46; Admin Dose 1 MG; Start 12/26/18 at 08:00 Levetiracetam (Keppra) 1,500 mg BID PO Last administered on 01/12/19 08:39; Admin Dose 1,500 MG; Start 12/26/18 at 09:00 Diphenhydramine/ Zinc Oxide (Benadryl 1% Cr) 1 applic Q6 PRN TOP itching; Start 12/26/18 at 10:30 Haloperidol (Haldol) 2 mg Q6H PRN IM agitation; Start 12/26/18 at 16:30 Folic Acid (Folic Acid) 1 mg DAILY PO Last administered on 01/12/19 08:39; Admin Dose 1 MG; Start 12/28/18 at 09:00 Thiamine HCl (Vitamin B1) 100 mg DAILY PO Last administered on 01/12/19 08:38; Admin Dose 100 MG; Start 12/31/18 at 09:00 Ferrous Sulfate (Ferrous Sulfate (Ec)) 325 mg DAILY PO Last administered on 01/12/19 08:38; Admin Dose 325 MG; Start 12/31/18 at 13:00 Phenytoin (Dilantin) 100 mg TID PO Last administered on 01/12/19 12:05; Admin Dose 100 MG; Start 12/31/18 at 13:00 Sertraline HCl (Zoloft) 100 mg DAILY PO Last administered on 01/12/19 08:38; Admin Dose 100 MG; Start 01/02/19 at 09:00 Loratadine (Claritin) 10 mg DAILY PO Last administered on 01/12/19 08:37; Admin Dose 10 MG; Start 01/02/19 at 09:00 Hydrocortisone 1 applic TID PRN TOP ITCHING Last administered on 01/05/19 08:06; Admin Dose 1 APPLIC; Start 01/02/19 at 06:00 Miscellaneous Information (* Miscellaneous Pharmacy Order) PATIENT'S OWN MED IS ... DAILY XX Last administered on 01/11/19 09:48; Admin Dose 1 EA; Start 01/03/19 at 09:00 Cholecalciferol (Vitamin D) 1,000 unit DAILY PO Last administered on 01/12/19 08:38; Admin Dose 1,000 UNIT; Start 01/05/19 at 09:00 Sevelamer Carbonate (Renvela) 800 mg WITH MEALS PO Last administered on 01/12/19 12:05; Admin Dose 800 MG; Start 01/07/19 at 07:35 Diphenhydramine HCl (Benadryl) 25 mg Q6H PRN PO ITCHING Last administered on 01/11/19 20:54; Admin Dose 25 MG; Start 01/08/19 at 23:00 Docosanol (Abreva) 1 applic 5 TIMES DAILY TOP Last administered on 01/12/19 12:04; Admin Dose 1 APPLIC; Start 01/10/19 at 13:00 Magnesium Oxide (Mag-Ox 400) 400 mg DAILY PO Last administered on 01/12/19 08:38; Admin Dose 400 MG; Start 01/11/19 at 09:00 Magnesium Sulfate 100 ml @ 25 mls/hr ONCE ONCE IVPB Last administered on 01/12/19 13:39; Admin Dose 25 MLS/HR; Start 01/12/19 at 12:30; Stop 01/12/19 at 16:29 ESTEPHANIA ALFONSO MD Jan 12, 2019 16:19
[2019-01-12] MEDS: DIPHENHYDRAMINE 25 MG CAP PO PRN (17:52)
[2019-01-12 19:36] VITALS: BP 110/75; PULSE 97; RESP 18
[2019-01-12] MEDS: ACETAMINOPHEN 325 MG TAB PO PRN (20:19)
[2019-01-13] MEDS: DIPHENHYDRAMINE 25 MG CAP PO PRN ×4 (00:32→23:07)
[2019-01-13 01:47] VITALS: BP 114/71; PULSE 90; RESP 17
[2019-01-13 08:25] VITALS: BP 108/72; PULSE 94; RESP 18
[2019-01-13] MEDS: SERTRALINE 100 MG TAB PO SCH (08:27)
[2019-01-13] MEDS: FOLIC ACID 1 MG TAB PO SCH (08:27)
[2019-01-13] MEDS: MAGNESIUM OXIDE 400 MG TAB PO SCH (08:27)
[2019-01-13] MEDS: THIAMINE 100 MG TAB PO SCH (08:27)
[2019-01-13] MEDS: LORATADINE 10 MG TAB PO SCH (08:27)
[2019-01-13] MEDS: LEVETIRACETAM 750 MG TAB PO SCH ×2 (08:27→20:25)
[2019-01-13] MEDS: CHOLECALCIFEROL 1,000 UNIT TAB PO SCH (08:27)
[2019-01-13] MEDS: SEVELAMER CARBONATE 800 MG TABLET PO SCH ×3 (08:27→16:42)
[2019-01-13] MEDS: FERROUS SULFATE (EC) 325 MG TAB PO SCH (08:27)
[2019-01-13] MEDS: PHENYTOIN 100 MG CAP PO SCH ×3 (08:27→20:25)
[2019-01-13] MEDS ORDERED: SOD CHLORIDE 0.9% 1,000 ML IV SCH (08:30)
[2019-01-13] MEDS: DOCOSANOL 2 GM CREAM TOP SCH ×5 (08:36→20:25)
--- NOTE | 2019-01-13 11:29 | CONS ---
Assessment/Plan Assessment/Plan Hospital Course (Demo Recall) 1. Hypomagnesemia, secondary to ETOH causing renal magnesium wasting. improved. We will continue to monitor. cont mag oxide po 2. Renal insufficiency, CALLIE on chronic kidney disease. AKK due to hemodynamic changes with an event of hypotension. Continue to monitor, continue supportive care. 3. Mineral bone disorder. Continue phosphate binders, monitor calcium and phosphorus levels. 4. Acute encephalopathy, etiology is toxic metabolic. 5. History of ETOH abuse. 6. Transaminitis. Continue to monitor. Consultation Date/Type/Reason Admit Date/Time Dec 26, 2018 at 04:04 Initial Consult Date Requesting Provider: ROSA HALL Date/Time of Note DATE: 01/13/19 TIME: 11:29 24 HR Interval Summary Free Text/Dictation denies n/v or diarrhea d.w rn gen nad cv rrr pulm ctab abd soft nd nt +bs ext: no edema Exam/Review of Systems Exam Vitals Vital Signs Date Temp Pulse Resp B/P (MAP) Pulse Ox O2 O2 Flow FiO2 Time Delivery Rate 01/13/19 98.0 94 18 108/72 96 08:25 (84) 01/12/19 Room Air 19:36 Intake and Output 01/12/19 01/12/19 01/13/19 1515:00 23:00 07:00 IntakeIntake Total 720 ml 500 ml BalanceBalance 720 ml 500 ml Results Result Diagram: 01/11/19 0502 01/13/19 0437 Results 24hrs Laboratory Tests Test 01/13/19 04:37 Sodium Level 139 Potassium Level 3.9 Chloride Level 101 Carbon Dioxide Level 30 Anion Gap 8 Blood Urea Nitrogen 42 H Creatinine 1.18 H Glucose Level 109 Calcium Level 10.1 Phosphorus Level 6.4 H Magnesium Level 2.1 Albumin 3.8 Medications Medication Current Medications IV Flush (NS 3 ml) 3 ml PER PROTOCOL IV ; Start 12/26/18 at 04:30 Ondansetron HCl (Zofran Inj) 4 mg Q6H PRN IV NAUSEA/VOMITING; Start 12/26/18 at 04:30 Acetaminophen (Tylenol Tab) 650 mg Q6H PRN PO .PAIN 1-3 OR TEMP Last administered on 01/12/19at 20:19; Admin Dose 650 MG; Start 12/26/18 at 04:30 Docusate Sodium (Colace) 100 mg Q12H PRN PO .CONSTIPATION; Start 12/26/18 at 04:30 Bisacodyl (Dulcolax) 5 mg DAILY PRN PO .CONSTIPATION; Start 12/26/18 at 04:30 Lorazepam (Ativan) 1 mg [id number] PRN IV SEIZURES; Start 12/26/18 at 06:00 Lorazepam (Ativan) 1 mg Q4H PRN IV CONTROL WITHDRAWAL SYMPTOMS Last administered on 12/29/18 20:46; Admin Dose 1 MG; Start 12/26/18 at 08:00 Levetiracetam (Keppra) 1,500 mg BID PO Last administered on 01/13/19 08:27; Admin Dose 1,500 MG; Start 12/26/18 at 09:00 Diphenhydramine/ Zinc Oxide (Benadryl 1% Cr) 1 applic Q6 PRN TOP itching; Start 12/26/18 at 10:30 Haloperidol (Haldol) 2 mg Q6H PRN IM agitation; Start 12/26/18 at 16:30 Folic Acid (Folic Acid) 1 mg DAILY PO Last administered on 01/13/19 08:27; Admin Dose 1 MG; Start 12/28/18 at 09:00 Thiamine HCl (Vitamin B1) 100 mg DAILY PO Last administered on 01/13/19 08:27; Admin Dose 100 MG; Start 12/31/18 at 09:00 Ferrous Sulfate (Ferrous Sulfate (Ec)) 325 mg DAILY PO Last administered on 01/13/19 08:27; Admin Dose 325 MG; Start 12/31/18 at 13:00 Phenytoin (Dilantin) 100 mg TID PO Last administered on 01/13/19 08:27; Admin Dose 100 MG; Start 12/31/18 at 13:00 Sertraline HCl (Zoloft) 100 mg DAILY PO Last administered on 01/13/19 08:27; Admin Dose 100 MG; Start 01/02/19 at 09:00 Loratadine (Claritin) 10 mg DAILY PO Last administered on 01/13/19 08:27; Admin Dose 10 MG; Start 01/02/19 at 09:00 Hydrocortisone 1 applic TID PRN TOP ITCHING Last administered on 01/05/19 08:06; Admin Dose 1 APPLIC; Start 01/02/19 at 06:00 Miscellaneous Information (* Miscellaneous Pharmacy Order) PATIENT'S OWN MED IS ... DAILY XX Last administered on 01/11/19 09:48; Admin Dose 1 EA; Start 01/03/19 at 09:00 Cholecalciferol (Vitamin D) 1,000 unit DAILY PO Last administered on 01/13/19 08:27; Admin Dose 1,000 UNIT; Start 01/05/19 at 09:00 Sevelamer Carbonate (Renvela) 800 mg WITH MEALS PO Last administered on 01/13/19 08:27; Admin Dose 800 MG; Start 01/07/19 at 07:35 Diphenhydramine HCl (Benadryl) 25 mg Q6H PRN PO ITCHING Last administered on 01/13/19 09:21; Admin Dose 25 MG; Start 01/08/19 at 23:00 Docosanol (Abreva) 1 applic 5 TIMES DAILY TOP Last administered on 01/13/19 08:36; Admin Dose 1 APPLIC; Start 01/10/19 at 13:00 Magnesium Oxide (Mag-Ox 400) 400 mg DAILY PO Last administered on 01/13/19 08:27; Admin Dose 400 MG; Start 01/11/19 at 09:00 Sodium Chloride 1,000 ml @ 75 mls/hr [id number] IV Last administered on 01/13/19 09:21; Admin Dose 75 MLS/HR; Start 01/13/19 at 08:30 ÁLVARO POWERS MD Jan 13, 2019 11:29
--- NOTE | 2019-01-13 12:38 | PN ---
Date/Time of Note Date/Time of Note DATE: 01/13/19 TIME: 12:34 Assessment/Plan VTE Prophylaxis Risk score (from Nsg)>0 risk: 2 SCD applied (from Nsg): Yes Pharmacological prophylaxis: other Lines/Catheters IV Catheter Type (from Nrsg): Mid Line Urinary Cath still in place: No Assessment/Plan Assessment/Plan 1. Lesions on lip-improving - continue on Abreva and advised not to irritate area - appears to be crusting 2. Acute on chronic encephalopathy, most likely metabolic-toxic etiology- improved - patient at baseline and most likely due to history of alcohol use since 18 years old - psych consultation appreciated and patient capable of making her own decisions - Neurology on board and appreciate recommendations - MRI results noted with no acute abnormalities 3. Seizure disorder - continue on Dilantin and Keppra - seizure precautions - Ativan PRN - Appreciate neurology consultation 4. Hypomagnesemia- resolved - continue daily supplements 5. Alcoholic hepatitis- improved - monitor LFTs - continue on folate, and thiamine 6. Alcohol abuse - counseled about cessation - concern for possible Wernicke's encephalopathy. was on high dose thiamine - Librium taper completed and monitor for DTs 7. Normocytic anemia, hx of iron deficiency - iron studies noted - no need for transfusions at this time - cont home ferrous sulfate 8. Right eye blindness - Stable 9. CALLIE - will give gentle IV hydration and encouraged PO intake - Nephrology consultation appreciated 10. Disposition - on board for placement to SNF. Continues to remain stable Result Diagram: 01/11/19 0502 01/13/19 0437 Results 24hrs Laboratory Tests Test 01/13/19 04:37 Sodium Level 139 Potassium Level 3.9 Chloride Level 101 Carbon Dioxide Level 30 Anion Gap 8 Blood Urea Nitrogen 42 H Creatinine 1.18 H Glucose Level 109 Calcium Level 10.1 Phosphorus Level 6.4 H Magnesium Level 2.1 Albumin 3.8 Subjective 24 Hr Interval Summary Free Text/Dictation Patient denies any acute issues and still with flight of ideas. Exam/Review of Systems Exam Vitals Vital Signs Date Temp Pulse Resp B/P (MAP) Pulse Ox O2 O2 Flow FiO2 Time Delivery Rate 01/13/19 98.0 94 18 108/72 96 08:25 (84) 01/12/19 Room Air 19:36 Intake and Output 01/12/19 01/12/19 01/13/19 1515:00 23:00 07:00 IntakeIntake Total 720 ml 500 ml BalanceBalance 720 ml 500 ml Exam General: Patient is sitting up in bed, no acute distress mouth: ulcers left upper lip with scabbing and 2 on lower lip. no discharge or drainage Respiratory: Clear to auscultation bilaterally. no wheezing or rhonchi Cardiovascular: regular rate and rhythm, no obvious murmurs Gastrointestinal: soft, non-tender to palpation, bowel sounds heard. Psych: pressured speech, flight of ideas Results Results 24hrs Laboratory Tests Test 01/13/19 04:37 Sodium Level 139 Potassium Level 3.9 Chloride Level 101 Carbon Dioxide Level 30 Anion Gap 8 Blood Urea Nitrogen 42 H Creatinine 1.18 H Glucose Level 109 Calcium Level 10.1 Phosphorus Level 6.4 H Magnesium Level 2.1 Albumin 3.8 Medications Medication Current Medications IV Flush (NS 3 ml) 3 ml PER PROTOCOL IV ; Start 12/26/18 at 04:30 Ondansetron HCl (Zofran Inj) 4 mg Q6H PRN IV NAUSEA/VOMITING; Start 12/26/18 at 04:30 Acetaminophen (Tylenol Tab) 650 mg Q6H PRN PO .PAIN 1-3 OR TEMP Last administered on 01/12/19at 20:19; Admin Dose 650 MG; Start 12/26/18 at 04:30 Docusate Sodium (Colace) 100 mg Q12H PRN PO .CONSTIPATION; Start 12/26/18 at 04:30 Bisacodyl (Dulcolax) 5 mg DAILY PRN PO .CONSTIPATION; Start 12/26/18 at 04:30 Lorazepam (Ativan) 1 mg [id number] PRN IV SEIZURES; Start 12/26/18 at 06:00 Lorazepam (Ativan) 1 mg Q4H PRN IV CONTROL WITHDRAWAL SYMPTOMS Last administered on 12/29/18at 20:46; Admin Dose 1 MG; Start 12/26/18 at 08:00 Levetiracetam (Keppra) 1,500 mg BID PO Last administered on 01/13/19at 08:27; Admin Dose 1,500 MG; Start 12/26/18 at 09:00 Diphenhydramine/ Zinc Oxide (Benadryl 1% Cr) 1 applic Q6 PRN TOP itching; Start 12/26/18 at 10:30 Haloperidol (Haldol) 2 mg Q6H PRN IM agitation; Start 12/26/18 at 16:30 Folic Acid (Folic Acid) 1 mg DAILY PO Last administered on 01/13/19 08:27; Admin Dose 1 MG; Start 12/28/18 at 09:00 Thiamine HCl (Vitamin B1) 100 mg DAILY PO Last administered on 01/13/19 08:27; Admin Dose 100 MG; Start 12/31/18 at 09:00 Ferrous Sulfate (Ferrous Sulfate (Ec)) 325 mg DAILY PO Last administered on 01/13/19 08:27; Admin Dose 325 MG; Start 12/31/18 at 13:00 Phenytoin (Dilantin) 100 mg TID PO Last administered on 01/13/19 08:27; Admin Dose 100 MG; Start 12/31/18 at 13:00 Sertraline HCl (Zoloft) 100 mg DAILY PO Last administered on 01/13/19 08:27; Admin Dose 100 MG; Start 01/02/19 at 09:00 Loratadine (Claritin) 10 mg DAILY PO Last administered on 01/13/19 08:27; Admin Dose 10 MG; Start 01/02/19 at 09:00 Hydrocortisone 1 applic TID PRN TOP ITCHING Last administered on 01/05/19 08:06; Admin Dose 1 APPLIC; Start 01/02/19 at 06:00 Miscellaneous Information (* Miscellaneous Pharmacy Order) PATIENT'S OWN MED IS ... DAILY XX Last administered on 01/11/19 09:48; Admin Dose 1 EA; Start 9 at 09:00 Cholecalciferol (Vitamin D) 1,000 unit DAILY PO Last administered on 01/13/19 08:27; Admin Dose 1,000 UNIT; Start 01/05/19 at 09:00 Sevelamer Carbonate (Renvela) 800 mg WITH MEALS PO Last administered on 01/13/19 08:27; Admin Dose 800 MG; Start 01/07/19 at 07:35 Diphenhydramine HCl (Benadryl) 25 mg Q6H PRN PO ITCHING Last administered on 01/13/19 09:21; Admin Dose 25 MG; Start 01/08/19 at 23:00 Docosanol (Abreva) 1 applic 5 TIMES DAILY TOP Last administered on 01/13/19 08:36; Admin Dose 1 APPLIC; Start 01/10/19 at 13:00 Magnesium Oxide (Mag-Ox 400) 400 mg DAILY PO Last administered on 01/13/19 08:27; Admin Dose 400 MG; Start 01/11/19 at 09:00 Sodium Chloride 1,000 ml @ 75 mls/hr [id number] IV Last administered on 01/13/19 09:21; Admin Dose 75 MLS/HR; Start 01/13/19 at 08:30 ESTEPHANIA ALFONSO MD Jan 13, 2019 12:38
[2019-01-13 14:38] VITALS: BP 103/73; PULSE 98; RESP 18
[2019-01-13 19:38] VITALS: BP 103/62; PULSE 94; RESP 16
[2019-01-13] MEDS: ACETAMINOPHEN 325 MG TAB PO PRN (20:25)
[2019-01-14 02:13] VITALS: BP 119/73; PULSE 92; RESP 18
[2019-01-14 08:02] VITALS: BP 119/88; PULSE 96; RESP 19
[2019-01-14] MEDS: CHOLECALCIFEROL 1,000 UNIT TAB PO SCH (08:26)
[2019-01-14] MEDS: LEVETIRACETAM 750 MG TAB PO SCH ×2 (08:26→20:23)
[2019-01-14] MEDS: LORATADINE 10 MG TAB PO SCH (08:26)
[2019-01-14] MEDS: SEVELAMER CARBONATE 800 MG TABLET PO SCH ×3 (08:26→17:28)
[2019-01-14] MEDS: FOLIC ACID 1 MG TAB PO SCH (08:26)
[2019-01-14] MEDS: SERTRALINE 100 MG TAB PO SCH (08:26)
[2019-01-14] MEDS: FERROUS SULFATE (EC) 325 MG TAB PO SCH (08:26)
[2019-01-14] MEDS: PHENYTOIN 100 MG CAP PO SCH ×3 (08:27→20:26)
[2019-01-14] MEDS: MAGNESIUM OXIDE 400 MG TAB PO SCH (08:27)
[2019-01-14] MEDS: DOCOSANOL 2 GM CREAM TOP SCH ×5 (08:27→20:26)
[2019-01-14] MEDS ORDERED: MAGNESIUM SULFATE 2 GM/50 ML 50 ML IVPB ONE (08:30)
--- NOTE | 2019-01-14 09:27 | PN ---
DATE: 01/14/2019 SUBJECTIVE: The patient is stable, no events overnight. OBJECTIVE: VITAL SIGNS: Blood pressure is 119/73, respiration 18, pulse 92, temperature 97.7. HEENT: Head is normocephalic. NECK: Supple. HEART: Regular rate. LUNGS: Show diminished breath sounds at the base. ABDOMEN: Soft, nontender to palpation without rebound or guarding. EXTREMITIES: Negative for clubbing, cyanosis, no edema. DERMATOLOGIC: No rashes. MUSCULOSKELETAL: No joint effusion. NEUROLOGIC: No change in exam. MEDICATIONS: The patient's medications have been reviewed. LABORATORY DATA: Has been reviewed. IMAGING STUDIES: Have been reviewed. ASSESSMENT AND PLAN: 1. Hypomagnesemia, etiology secondary to ETOH causing renal magnesium wasting. Will continue to mon itor. Continue to replete with magnesium oxide. 2. Renal insufficiency, possible acute kidney injury versus chronic kidney disease. The patient's r enal function has been stable, continue to monitor patient, supportive care, renally dose all meds. 3. Mineral bone disorder. Continue phosphatase binders, monitor calcium and phosphorus levels. 4. Acute encephalopathy, etiology is toxic metabolic. 5. History of ETOH abuse. 6. Transaminitis. Continue to monitor. Dictated By: IDANIA MAHARAJ DO NR/NTS Conf#: [id number] DID#: [id number] CC: ROSA HALL MD; SOPHIE POWERS MD; MAEGAN TREADWELL;*EndCC*
[2019-01-14] MEDS: THIAMINE 100 MG TAB PO SCH (09:36)
--- NOTE | 2019-01-14 11:19 | PN ---
Date/Time of Note Date/Time of Note DATE: 01/14/19 TIME: Objective Vitals Vital Signs Date Temp Pulse Resp B/P (MAP) Pulse Ox O2 O2 Flow FiO2 Time Delivery Rate 01/14/19 98.1 96 19 119/88 95 08:02 (98) 01/14/19 Room Air 02:13 Intake and Output 01/13/19 01/13/19 01/14/19 1515:00 23:00 07:00 IntakeIntake Total 400 ml 1963 ml BalanceBalance 400 ml 1963 ml Results Result Diagram: 01/11/19 0502 01/14/19 0501 Medications Medications Current Medications IV Flush (NS 3 ml) 3 ml PER PROTOCOL IV ; Start 12/26/18 at 04:30 Ondansetron HCl (Zofran Inj) 4 mg Q6H PRN IV NAUSEA/VOMITING; Start 12/26/18 at 04:30 Acetaminophen (Tylenol Tab) 650 mg Q6H PRN PO .PAIN 1-3 OR TEMP Last administered on 01/13/19at 20:25; Admin Dose 650 MG; Start 12/26/18 at 04:30 Docusate Sodium (Colace) 100 mg Q12H PRN PO .CONSTIPATION; Start 12/26/18 at 04:30 Bisacodyl (Dulcolax) 5 mg DAILY PRN PO .CONSTIPATION; Start 12/26/18 at 04:30 Lorazepam (Ativan) 1 mg [id number] PRN IV SEIZURES; Start 12/26/18 at 06:00 Lorazepam (Ativan) 1 mg Q4H PRN IV CONTROL WITHDRAWAL SYMPTOMS Last administered on 12/29/18at 20:46; Admin Dose 1 MG; Start 12/26/18 at 08:00 Levetiracetam (Keppra) 1,500 mg BID PO Last administered on 01/14/19at 08:26; Admin Dose 1,500 MG; Start 12/26/18 at 09:00 Diphenhydramine/ Zinc Oxide (Benadryl 1% Cr) 1 applic Q6 PRN TOP itching; Start 12/26/18 at 10:30 Haloperidol (Haldol) 2 mg Q6H PRN IM agitation; Start 12/26/18 at 16:30 Folic Acid (Folic Acid) 1 mg DAILY PO Last administered on 01/14/19 08:26; Admin Dose 1 MG; Start 12/28/18 at 09:00 Thiamine HCl (Vitamin B1) 100 mg DAILY PO Last administered on 01/14/19 09:36; Admin Dose 100 MG; Start 12/31/18 at 09:00 Ferrous Sulfate (Ferrous Sulfate (Ec)) 325 mg DAILY PO Last administered on 01/14/19 08:26; Admin Dose 325 MG; Start 12/31/18 at 13:00 Phenytoin (Dilantin) 100 mg TID PO Last administered on 01/14/19 08:27; Admin Dose 100 MG; Start 12/31/18 at 13:00 Sertraline HCl (Zoloft) 100 mg DAILY PO Last administered on 01/14/19 08:26; Admin Dose 100 MG; Start 01/02/19 at 09:00 Loratadine (Claritin) 10 mg DAILY PO Last administered on 01/14/19 08:26; Admin Dose 10 MG; Start 01/02/19 at 09:00 Hydrocortisone 1 applic TID PRN TOP ITCHING Last administered on 01/05/19 08:06; Admin Dose 1 APPLIC; Start 01/02/19 at 06:00 Miscellaneous Information (* Miscellaneous Pharmacy Order) PATIENT'S OWN MED IS ... DAILY XX Last administered on 01/11/19 09:48; Admin Dose 1 EA; Start 01/03/19 at 09:00 Cholecalciferol (Vitamin D) 1,000 unit DAILY PO Last administered on 01/14/19 08:26; Admin Dose 1,000 UNIT; Start 01/05/19 at 09:00 Sevelamer Carbonate (Renvela) 800 mg WITH MEALS PO Last administered on 01/14/19 08:26; Admin Dose 800 MG; Start 01/07/19 at 07:35 Diphenhydramine HCl (Benadryl) 25 mg Q6H PRN PO ITCHING Last administered on 01/13/19 23:07; Admin Dose 25 MG; Start 01/08/19 at 23:00 Docosanol (Abreva) 1 applic 5 TIMES DAILY TOP Last administered on 01/14/19 08:27; Admin Dose 1 APPLIC; Start 01/10/19 at 13:00 Magnesium Oxide (Mag-Ox 400) 400 mg DAILY PO Last administered on 01/14/19at 08:27; Admin Dose 400 MG; Start 01/11/19 at 09:00 VTE Prophylaxis Risk score (from Nsg)>0 risk: 1 SCD applied (from Ns): No SCD contraindication: other Lines/Catheters IV Catheter Type: Ayala in Place: No Assessment/Plan Hospital Course Subjective Patient feeling well, Objective Physical exam General: Patient is laying in bed and answers questions appropriately Mentation: Patient is alert and oriented 4, Head: Normocephalic atraumatic Eyes: EOMI, pupils reactive to light Neck: Supple, nontender, midline Respiratory: Clear to auscultation bilaterally Cardiovascular: regular rate, no obvious murmurs Gastrointestinal: non-tender to palpation, bowel sounds heard. Neurological: Moves all extremities spontaneously Skin: No new skin lesions Assessment/Plan 1. Lesions on lip-improving - continue on Abreva and advised not to irritate area - appears to be crusting 2. Acute on chronic encephalopathy, most likely metabolic-toxic etiology- imp roved - patient at baseline and most likely due to history of alcohol use since 18 years old - psych consultation appreciated and patient capable of making her own decisions - Neurology on board and appreciate recommendations - MRI results noted with no acute abnormalities 3. Seizure disorder - continue on Dilantin and Keppra - seizure precautions - Ativan PRN - Appreciate neurology consultation 4. Hypomagnesemia- resolved - continue daily supplements 5. Alcoholic hepatitis- improved - monitor LFTs - continue on folate, and thiamine 6. Alcohol abuse - counseled about cessation - concern for possible Wernicke's encephalopathy. was on high dose thiamine - Librium taper completed and monitor for DTs 7. Normocytic anemia, hx of iron deficiency - iron studies noted - no need for transfusions at this time - cont home ferrous sulfate 8. Right eye blindness - Stable 9. CALLIE - will give gentle IV hydration and encouraged PO intake - Nephrology consultation appreciated 10. Disposition - CM on board for placement to SNF. Continues to remain stable SOPHIE POWERS Jan 14, 2019 11:19
[2019-01-14 14:22] VITALS: BP 117/79; PULSE 92; RESP 19
[2019-01-14 20:14] VITALS: BP 121/75; PULSE 91; RESP 18
[2019-01-14] MEDS: DIPHENHYDRAMINE 25 MG CAP PO PRN (20:41)
[2019-01-15 01:41] VITALS: BP 119/67; PULSE 91; RESP 18
[2019-01-15 07:33] VITALS: BP 107/69; PULSE 85; RESP 16
[2019-01-15] MEDS: FOLIC ACID 1 MG TAB PO SCH (08:08)
[2019-01-15] MEDS: MAGNESIUM OXIDE 400 MG TAB PO SCH (08:08)
[2019-01-15] MEDS: SEVELAMER CARBONATE 800 MG TABLET PO SCH ×3 (08:08→17:02)
[2019-01-15] MEDS: LEVETIRACETAM 750 MG TAB PO SCH ×2 (08:08→20:29)
[2019-01-15] MEDS: FERROUS SULFATE (EC) 325 MG TAB PO SCH (08:08)
[2019-01-15] MEDS: SERTRALINE 100 MG TAB PO SCH (08:08)
[2019-01-15] MEDS: LORATADINE 10 MG TAB PO SCH (08:08)
[2019-01-15] MEDS: THIAMINE 100 MG TAB PO SCH (08:08)
[2019-01-15] MEDS: CHOLECALCIFEROL 1,000 UNIT TAB PO SCH (08:08)
[2019-01-15] MEDS: PHENYTOIN 100 MG CAP PO SCH ×3 (08:09→20:29)
[2019-01-15] MEDS: DOCOSANOL 2 GM CREAM TOP SCH ×5 (08:09→20:29)
--- NOTE | 2019-01-15 08:25 | PN ---
DATE: 01/15/2019 SUBJECTIVE: The patient is stable, no events overnight. No fevers or chills. OBJECTIVE: VITAL SIGNS: Blood pressure is 119/67, respirations 18, pulse 91, temperature 98.3. HEENT: Head is normocephalic. NECK: Supple. HEART: Regular rate. LUNGS: Show diminished breath sounds at the base. ABDOMEN: Soft, nontender to palpation without rebound or guarding. EXTREMITIES: Negative for clubbing, cyanosis, no edema. DERMATOLOGIC: No rashes. MUSCULOSKELETAL: No joint effusion. NEUROLOGIC: No change in exam. MEDICATIONS: Have been reviewed. LABORATORY DATA: Have has been reviewed. ASSESSMENT AND PLAN: 1. Nonoliguric acute kidney injury with unknown baseline creatinine, questionable chronic kidney dis ease. The patient's renal function has been fluctuating but declined in the last 24 hours. At this point, will continue to monitor. Continue to encourage p.o. intake. If renal function should furthe r decline, will repeat urinalysis. 2. Hypomagnesemia secondary to ETOH use causing renal magnesium wasting. Continue to monitor. Cont inue to replete with magnesium oxide. 3. Mineral bone disorder. Continue phosphate binders. 4. Acute encephalopathy, etiology is toxic metabolic. 5. History of ETOH abuse. Continue to monitor. 6. Transaminitis. Continue to monitor. Dictated By: IDANIA MAHARAJ DO NR/NTS Conf#: [id number] DID#: [id number] CC: ROSA HALL MD;*EndCC*
[2019-01-15] MEDS: DIPHENHYDRAMINE 25 MG CAP PO PRN ×2 (13:23→20:34)
[2019-01-15 14:00] VITALS: BP 129/75; PULSE 98; RESP 18
--- NOTE | 2019-01-15 15:23 | PN ---
Date/Time of Note Date/Time of Note DATE: 01/15/19 TIME: 15:22 Objective Vitals Vital Signs Date Temp Pulse Resp B/P (MAP) Pulse Ox O2 O2 Flow FiO2 Time Delivery Rate 01/15/19 98.4 98 18 129/75 95 14:00 (93) 01/15/19 Room Air 01:41 Intake and Output 01/14/19 01/14/19 01/15/19 1515:00 23:00 07:00 IntakeIntake Total 50 ml 1100 ml 300 ml BalanceBalance 50 ml 1100 ml 300 ml Results Result Diagram: 01/11/19 0502 01/15/19 0434 Medications Medications Current Medications IV Flush (NS 3 ml) 3 ml PER PROTOCOL IV ; Start 12/26/18 at 04:30 Ondansetron HCl (Zofran Inj) 4 mg Q6H PRN IV NAUSEA/VOMITING; Start 12/26/18 at 04:30 Acetaminophen (Tylenol Tab) 650 mg Q6H PRN PO .PAIN 1-3 OR TEMP Last admin istered on 01/13/19at 20:25; Admin Dose 650 MG; Start 12/26/18 at 04:30 Docusate Sodium (Colace) 100 mg Q12H PRN PO .CONSTIPATION; Start 12/26/18 at 04:30 Bisacodyl (Dulcolax) 5 mg DAILY PRN PO .CONSTIPATION; Start 12/26/18 at 04:30 Lorazepam (Ativan) 1 mg [id number] PRN IV SEIZURES; Start 12/26/18 at 06:00 Lorazepam (Ativan) 1 mg Q4H PRN IV CONTROL WITHDRAWAL SYMPTOMS Last administered on 12/29/18at 20:46; Admin Dose 1 MG; Start 12/26/18 at 08:00 Levetiracetam (Keppra) 1,500 mg BID PO Last administered on 01/15/19at 08:08; Admin Dose 1,500 MG; Start 12/26/18 at 09:00 Diphenhydramine/ Zinc Oxide (Benadryl 1% Cr) 1 applic Q6 PRN TOP itching; Start 12/26/18 at 10:30 Haloperidol (Haldol) 2 mg Q6H PRN IM agitation; Start 12/26/18 at 16:30 Folic Acid (Folic Acid) 1 mg DAILY PO Last administered on 01/15/19 08:08; Admin Dose 1 MG; Start 12/28/18 at 09:00 Thiamine HCl (Vitamin B1) 100 mg DAILY PO Last administered on 01/15/19 08:08; Admin Dose 100 MG; Start 12/31/18 at 09:00 Ferrous Sulfate (Ferrous Sulfate (Ec)) 325 mg DAILY PO Last administered on 01/15/19 08:08; Admin Dose 325 MG; Start 12/31/18 at 13:00 Phenytoin (Dilantin) 100 mg TID PO Last administered on 01/15/19 13:23; Admin Dose 100 MG; Start 12/31/18 at 13:00 Sertraline HCl (Zoloft) 100 mg DAILY PO Last administered on 01/15/19 08:08; Admin Dose 100 MG; Start 01/02/19 at 09:00 Loratadine (Claritin) 10 mg DAILY PO Last administered on 01/15/19 08:08; Admin Dose 10 MG; Start 01/02/19 at 09:00 Hydrocortisone 1 applic TID PRN TOP ITCHING Last administered on 01/05/19 08:06; Admin Dose 1 APPLIC; Start 01/02/19 at 06:00 Miscellaneous Information (* Miscellaneous Pharmacy Order) PATIENT'S OWN MED IS ... DAILY XX Last administered on 01/11/19 09:48; Admin Dose 1 EA; Start 01/03/19 at 09:00 Cholecalciferol (Vitamin D) 1,000 unit DAILY PO Last administered on 01/15/19 08:08; Admin Dose 1,000 UNIT; Start 01/05/19 at 09:00 Sevelamer Carbonate (Renvela) 800 mg WITH MEALS PO Last administered on 01/15/19 11:43; Admin Dose 800 MG; Start 01/07/19 at 07:35 Diphenhydramine HCl (Benadryl) 25 mg Q6H PRN PO ITCHING Last administered on 01/15/19 13:23; Admin Dose 25 MG; Start 01/08/19 at 23:00 Docosanol (Abreva) 1 applic 5 TIMES DAILY TOP Last administered on 01/15/19 15:20; Admin Dose 1 APPLIC; Start 01/10/19 at 13:00 Magnesium Oxide (Mag-Ox 400) 400 mg DAILY PO Last administered on 01/15/19at 08:08; Admin Dose 400 MG; Start 01/11/19 at 09:00 VTE Prophylaxis Risk score (from Ns)>0 risk: 1 SCD applied (from [facility]): No SCD contraindication: other Lines/Catheters IV Catheter Type: Ayala in Place: No Assessment/Plan Hospital Course Subjective Patient feeling well, Objective Physical exam General: Patient is laying in bed and answers questions appropriately Mentation: Patient is alert and oriented 4, Head: Normocephalic atraumatic Eyes: EOMI, pupils reactive to light Neck: Supple, nontender, midline Respiratory: Clear to auscultation bilaterally Cardiovascular: regular rate, no obvious murmurs Gastrointestinal: non-tender to palpation, bowel sounds heard. Neurological: Moves all extremities spontaneously Skin: No new skin lesions Assessment/Plan 1. Lesions on lip-improving - continue on Abreva and advised not to irritate area - appears to be crusting 2. Acute on chronic encephalopathy, most likely metabolic-toxic etiology- improved - patient at baseline and most likely due to history of alcohol use since 18 years old - psych consultation appreciated and patient capable of making her own decisions - Neurology on board and appreciate recommendations - MRI results noted with no acute abnormalities 3. Seizure disorder - continue on Dilantin and Keppra - seizure precautions - Ativan PRN - Appreciate neurology consultation 4. Hypomagnesemia- resolved - continue daily supplements 5. Alcoholic hepatitis- improved - monitor LFTs - continue on folate, and thiamine 6. Alcohol abuse - counseled about cessation - concern for possible Wernicke's encephalopathy. was on high dose thiamine - Librium taper completed and monitor for DTs 7. Normocytic anemia, hx of iron deficiency - iron studies noted - no need for transfusions at this time - cont home ferrous sulfate 8. Right eye blindness - Stable 9. CALLIE -Mild elevation today, encourage p.o. intake per nephro recommendations - Nephrology consultation appreciated 10. Disposition - CM on board for placement to SNF. Continues to remain stable SOPHIE POWERS Jan 15, 2019 15:23
[2019-01-15 19:36] VITALS: BP 104/73; PULSE 95; RESP 18
[2019-01-16] MEDS: DIPHENHYDRAMINE 25 MG CAP PO PRN ×2 (02:50→20:38)
[2019-01-16 02:56] VITALS: BP 118/77; PULSE 98; RESP 18
[2019-01-16 08:17] VITALS: BP 115/58; PULSE 98; RESP 18
[2019-01-16] MEDS: LORATADINE 10 MG TAB PO SCH (08:43)
[2019-01-16] MEDS: FOLIC ACID 1 MG TAB PO SCH (08:44)
[2019-01-16] MEDS: LEVETIRACETAM 750 MG TAB PO SCH ×2 (08:44→20:37)
[2019-01-16] MEDS: SERTRALINE 100 MG TAB PO SCH (08:44)
[2019-01-16] MEDS: MAGNESIUM OXIDE 400 MG TAB PO SCH (08:44)
[2019-01-16] MEDS: CHOLECALCIFEROL 1,000 UNIT TAB PO SCH (08:44)
[2019-01-16] MEDS: FERROUS SULFATE (EC) 325 MG TAB PO SCH (08:44)
[2019-01-16] MEDS: THIAMINE 100 MG TAB PO SCH (08:44)
[2019-01-16] MEDS: PHENYTOIN 100 MG CAP PO SCH ×3 (08:44→20:38)
[2019-01-16] MEDS: SEVELAMER CARBONATE 800 MG TABLET PO SCH ×3 (08:44→17:20)
[2019-01-16] MEDS: DOCOSANOL 2 GM CREAM TOP SCH ×5 (09:00→20:39)
--- NOTE | 2019-01-16 10:48 | PN ---
DATE: 01/16/2019 SUBJECTIVE: The patient is stable. No events overnight. OBJECTIVE: VITAL SIGNS: Blood pressure is 118/77, respirations 19, pulse 98, temperature 98.1. HEENT: Head is normocephalic. NECK: Supple. HEART: Regular rate. LUNGS: Show diminished breath sounds at the base. ABDOMEN: Soft, nontender to palpation without rebound or guarding. EXTREMITIES: Negative for clubbing, cyanosis, no edema. DERMATOLOGIC: No rashes. MUSCULOSKELETAL: No joint effusion. NEUROLOGIC: No change in exam. MEDICATIONS: Have been reviewed. LABORATORY DATA: Has been reviewed. IMAGING STUDIES: Have been reviewed. ASSESSMENT AND PLAN: 1. Nonoliguric acute kidney injury with unknown baseline creatinine, possible chronic kidney disease . The patient's renal function has been fluctuating but stable in the last 24 hours. Will continue to monitor. Continue to encourage p.o. intake. 2. Hypomagnesemia secondary to ETOH use causing renal magnesium wasting. Continue to monitor. Cont inue to replete as needed. 3. Mineral bone disorder. The patient is hypophosphatemic. Continue phosphate binders, will increa se dose. 4. ETOH abuse. Continue to monitor. 5. Acute encephalopathy. Etiology is toxic metabolic. 6. Transaminitis. Continue to monitor. Dictated By: IDANIA MAHARAJ DO NR/NTS Conf#: [id number] DID#: [id number] CC: ROSA HALL MD;*EndCC*
--- NOTE | 2019-01-16 14:44 | PN ---
Date/Time of Note Date/Time of Note DATE: 01/16/19 TIME: 14:39 Assessment/Plan VTE Prophylaxis Risk score (from Nsg)>0 risk: 1 SCD applied (from Nsg): No SCD contraindicated: other Pharmacological prophylaxis: other Lines/Catheters IV Catheter Type (from Nrsg): Mid Line Urinary Cath still in place: No Assessment/Plan Hospital Course Subjective Patient feeling well, Objective Physical exam General: Patient is laying in bed and answers questions appropriately Mentation: Patient is alert and oriented 4, Head: Normocephalic atraumatic Eyes: EOMI, pupils reactive to light Neck: Supple, nontender, midline Respiratory: Clear to auscultation bilaterally Cardiovascular: regular rate, no obvious murmurs Gastrointestinal: non-tender to palpation, bowel sounds heard. Neurological: Moves all extremities spontaneously Skin: No new skin lesions Assessment/Plan 1. Lesions on lip-improving - continue on Abreva and advised not to irritate area - appears to be crusting 2. Acute on chronic encephalopathy, most likely metabolic-toxic etiology- improved - patient at baseline and most likely due to history of alcohol use since 18 years old - psych consultation appreciated and patient capable of making her own decisions - Neurology on board and appreciate recommendations - MRI results noted with no acute abnormalities 3. Seizure disorder - continue on Dilantin and Keppra - seizure precautions - Ativan PRN - Appreciate neurology consultation 4. Hypomagnesemia- resolved - continue daily supplements 5. Alcoholic hepatitis- improved - monitor LFTs - continue on folate, and thiamine 6. Alcohol abuse - counseled about cessation - concern for possible Wernicke's encephalopathy. was on high dose thiamine - Librium taper completed and monitor for DTs 7. Normocytic anemia, hx of iron deficiency - iron studies noted - no need for transfusions at this time - cont home ferrous sulfate 8. Right eye blindness - Stable 9. CALLIE -Mild elevation, but stable encourage p.o. intake per nephro recommendations as patient does not want IV inserted - Nephrology consultation appreciated 10. Disposition - CM on board for placement to SNF. Continues to remain stable Result Diagram: 01/16/19 0439 01/16/19 0439 Results 24hrs Laboratory Tests Test 01/16/19 04:39 White Blood Count 6.2 Red Blood Count 3.07 L Hemoglobin 10.3 L Hematocrit 32.0 L Mean Corpuscular Volume 104.2 H Mean Corpuscular Hemoglobin 33.6 H Mean Corpuscular Hemoglobin Concent 32.2 Red Cell Distribution Width 12.6 Platelet Count 260 Mean Platelet Volume 11.3 H Immature Granulocytes % 0.300 Neutrophils % 48.5 Lymphocytes % 38.5 Monocytes % 8.1 Eosinophils % 3.6 Basophils % 1.0 Nucleated Red Blood Cells % 0.0 Immature Granulocytes # 0.020 Neutrophils # 3.0 Lymphocytes # 2.4 Monocytes # 0.5 Eosinophils # 0.2 Basophils # 0.1 Nucleated Red Blood Cells # 0.0 Sodium Level 140 Potassium Level 4.6 Chloride Level 105 Carbon Dioxide Level 27 Anion Gap 8 Blood Urea Nitrogen 44 H Creatinine 1.31 H Est Glomerular Filtrat Rate mL/min 42 L Glucose Level 96 Calcium Level 10.1 Phosphorus Level 7.5 H Magnesium Level 1.6 L Exam/Review of Systems Exam Vitals Vital Signs Date Temp Pulse Resp B/P (MAP) Pulse Ox O2 O2 Flow FiO2 Time Delivery Rate 01/16/19 97.7 98 18 115/58 97 08:17 (77) 01/16/19 Room Air 02:56 Intake and Output 01/15/19 01/15/19 01/16/19 1515:00 23:00 07:00 IntakeIntake Total 640 ml 200 ml BalanceBalance 640 ml 200 ml Results Results 24hrs Laboratory Tests Test 01/16/19 04:39 White Blood Count 6.2 Red Blood Count 3.07 L Hemoglobin 10.3 L Hematocrit 32.0 L Mean Corpuscular Volume 104.2 H Mean Corpuscular Hemoglobin 33.6 H Mean Corpuscular Hemoglobin Concent 32.2 Red Cell Distribution Width 12.6 Platelet Count 260 Mean Platelet Volume 11.3 H Immature Granulocytes % 0.300 Neutrophils % 48.5 Lymphocytes % 38.5 Monocytes % 8.1 Eosinophils % 3.6 Basophils % 1.0 Nucleated Red Blood Cells % 0.0 Immature Granulocytes # 0.020 Neutrophils # 3.0 Lymphocytes # 2.4 Monocytes # 0.5 Eosinophils # 0.2 Basophils # 0.1 Nucleated Red Blood Cells # 0.0 Sodium Level 140 Potassium Level 4.6 Chloride Level 105 Carbon Dioxide Level 27 Anion Gap 8 Blood Urea Nitrogen 44 H Creatinine 1.31 H Est Glomerular Filtrat Rate mL/min 42 L Glucose Level 96 Calcium Level 10.1 Phosphorus Level 7.5 H Magnesium Level 1.6 L Medications Medication Current Medications IV Flush (NS 3 ml) 3 ml PER PROTOCOL IV ; Start 12/26/18 at 04:30 Ondansetron HCl (Zofran Inj) 4 mg Q6H PRN IV NAUSEA/VOMITING; Start 12/26/18 at 04:30 Acetaminophen (Tylenol Tab) 650 mg Q6H PRN PO .PAIN 1-3 OR TEMP Last administered on 01/13/19 20:25; Admin Dose 650 MG; Start 12/26/18 at 04:30 Docusate Sodium (Colace) 100 mg Q12H PRN PO .CONSTIPATION; Start 12/26/18 at 04:30 Bisacodyl (Dulcolax) 5 mg DAILY PRN PO .CONSTIPATION; Start 12/26/18 at 04:30 Lorazepam (Ativan) 1 mg [id number] PRN IV SEIZURES; Start 12/26/18 at 06:00 Lorazepam (Ativan) 1 mg Q4H PRN IV CONTROL WITHDRAWAL SYMPTOMS Last administered on 12/29/18 20:46; Admin Dose 1 MG; Start 12/26/18 at 08:00 Levetiracetam (Keppra) 1,500 mg BID PO Last administered on 01/16/19 08:44; Admin Dose 1,500 MG; Start 12/26/18 at 09:00 Diphenhydramine/ Zinc Oxide (Benadryl 1% Cr) 1 applic Q6 PRN TOP itching; Start 12/26/18 at 10:30 Haloperidol (Haldol) 2 mg Q6H PRN IM agitation; Start 12/26/18 at 16:30 Folic Acid (Folic Acid) 1 mg DAILY PO Last administered on 01/16/19 08:44; Admin Dose 1 MG; Start 12/28/18 at 09:00 Thiamine HCl (Vitamin B1) 100 mg DAILY PO Last administered on 01/16/19 08:44; Admin Dose 100 MG; Start 12/31/18 at 09:00 Ferrous Sulfate (Ferrous Sulfate (Ec)) 325 mg DAILY PO Last administered on 01/16/19 08:44; Admin Dose 325 MG; Start 12/31/18 at 13:00 Phenytoin (Dilantin) 100 mg TID PO Last administered on 01/16/19 13:20; Admin Dose 100 MG; Start 12/31/18 at 13:00 Sertraline HCl (Zoloft) 100 mg DAILY PO Last administered on 01/16/19 08:44; Admin Dose 100 MG; Start 01/02/19 at 09:00 Loratadine (Claritin) 10 mg DAILY PO Last administered on 01/16/19 08:43; Admin Dose 10 MG; Start 01/02/19 at 09:00 Hydrocortisone 1 applic TID PRN TOP ITCHING Last administered on 01/05/19 08:06; Admin Dose 1 APPLIC; Start 01/02/19 at 06:00 Miscellaneous Information (* Miscellaneous Pharmacy Order) PATIENT'S OWN MED IS ... DAILY XX Last administered on 01/11/19 09:48; Admin Dose 1 EA; Start 01/03/19 at 09:00 Cholecalciferol (Vitamin D) 1,000 unit DAILY PO Last administered on 01/16/19 08:44; Admin Dose 1,000 UNIT; Start 01/05/19 at 09:00 Diphenhydramine HCl (Benadryl) 25 mg Q6H PRN PO ITCHING Last administered on 01/16/19 02:50; Admin Dose 25 MG; Start 01/08/19 at 23:00 Docosanol (Abreva) 1 applic 5 TIMES DAILY TOP Last administered on 01/16/19 14:28; Admin Dose 1 APPLIC; Start 01/10/19 at 13:00 Magnesium Oxide (Mag-Ox 400) 400 mg DAILY PO Last administered on 01/16/19 08:44; Admin Dose 400 MG; Start 01/11/19 at 09:00 Sevelamer Carbonate (Renvela) 1,600 mg WITH MEALS PO Last administered on 01/16/19 13:20; Admin Dose 1,600 MG; Start 01/16/19 at 07:35 SOPHIE POWERS Jan 16, 2019 14:44
[2019-01-16 14:46] VITALS: BP 114/74; PULSE 104; RESP 18
[2019-01-16 19:57] VITALS: BP 107/79; PULSE 84; RESP 19
[2019-01-17 02:33] VITALS: BP 118/71; PULSE 79; RESP 17
[2019-01-17 08:02] VITALS: BP 113/79; PULSE 84; RESP 18
[2019-01-17] MEDS: SEVELAMER CARBONATE 800 MG TABLET PO SCH ×3 (08:19→17:51)
[2019-01-17] MEDS: LEVETIRACETAM 750 MG TAB PO SCH ×2 (08:19→20:32)
[2019-01-17] MEDS: CHOLECALCIFEROL 1,000 UNIT TAB PO SCH (08:20)
[2019-01-17] MEDS: FOLIC ACID 1 MG TAB PO SCH (08:20)
[2019-01-17] MEDS: THIAMINE 100 MG TAB PO SCH (08:20)
[2019-01-17] MEDS: MAGNESIUM OXIDE 400 MG TAB PO SCH ×2 (08:20→20:31)
[2019-01-17] MEDS: FERROUS SULFATE (EC) 325 MG TAB PO SCH (08:21)
[2019-01-17] MEDS: PHENYTOIN 100 MG CAP PO SCH ×3 (08:21→20:32)
[2019-01-17] MEDS: LORATADINE 10 MG TAB PO SCH (08:21)
[2019-01-17] MEDS: SERTRALINE 100 MG TAB PO SCH (08:22)
[2019-01-17] MEDS: DOCOSANOL 2 GM CREAM TOP SCH ×5 (08:23→20:32)
--- NOTE | 2019-01-17 09:45 | PN ---
DATE: 01/17/2019 SUBJECTIVE: The patient is stable. No events overnight. No fevers, chills, nausea or vomiting. OBJECTIVE: VITAL SIGNS: Blood pressure is 118/71, respirations 17, pulse 79, temperature 97.9. HEENT: Head is normocephalic. NECK: Supple. HEART: Regular rate. LUNGS: Show diminished breath sounds at the base. ABDOMEN: Soft, nontender to palpation without rebound or guarding. EXTREMITIES: Negative for clubbing, cyanosis, no edema. DERMATOLOGIC: No rashes. MUSCULOSKELETAL: No joint effusion. NEUROLOGIC: No change in exam. MEDICATIONS: Have been reviewed. LABORATORY DATA: Has been reviewed. IMAGING STUDIES: Have been reviewed. ASSESSMENT AND PLAN: 1. Nonoliguric acute kidney injury with unknown baseline creatinine, possible chronic kidney disease . Etiology of acute kidney injury is possibly due to hemodynamics. We will continue to monitor nate l function closely. Continue supportive care. 2. Hypomagnesemia secondary to ETOH use causing renal magnesium wasting. Will increase magnesium ox blair 400 mg b.i.d. and monitor. 3. Mineral bone disorder. The patient is hyperphosphatemic. Continue to adjust phosphatase binders , monitor levels. 4. ETOH abuse. Continue to monitor. 5. Encephalopathy, ____, metabolic, improving. 6. Transaminitis. Continue to monitor. Dictated By: IDANIA LAMBERT/ALVINA Conf#: [id number] DID#: [id number]
--- NOTE | 2019-01-17 14:55 | PN ---
Date/Time of Note Date/Time of Note DATE: 01/17/19 TIME: 14:55 Assessment/Plan VTE Prophylaxis Risk score (from Nsg)>0 risk: 1 SCD applied (from Nsg): No SCD contraindicated: other Pharmacological prophylaxis: other Lines/Catheters IV Catheter Type (from Nrsg): Mid Line Urinary Cath still in place: No Assessment/Plan Hospital Course Subjective Patient feeling well, Objective Physical exam General: Patient is laying in bed and answers questions appropriately Mentation: Patient is alert and oriented 4, Head: Normocephalic atraumatic Eyes: EOMI, pupils reactive to light Neck: Supple, nontender, midline Respiratory: Clear to auscultation bilaterally Cardiovascular: regular rate, no obvious murmurs Gastrointestinal: non-tender to palpation, bowel sounds heard. Neurological: Moves all extremities spontaneously Skin: No new skin lesions Assessment/Plan 1. Lesions on lip-improving - continue on Abreva and advised not to irritate area - appears to be crusting 2. Acute on chronic encephalopathy, most likely metabolic-toxic etiology- improved - patient at baseline and most likely due to history of alcohol use since 18 years old - psych consultation appreciated and patient capable of making her own decisions - Neurology on board and appreciate recommendations - MRI results noted with no acute abnormalities 3. Seizure disorder - continue on Dilantin and Keppra - seizure precautions - Ativan PRN - Appreciate neurology consultation 4. Hypomagnesemia- resolved - continue daily supplements 5. Alcoholic hepatitis- improved - monitor LFTs - continue on folate, and thiamine 6. Alcohol abuse - counseled about cessation - concern for possible Wernicke's encephalopathy. was on high dose thiamine - Librium taper completed and monitor for DTs 7. Normocytic anemia, hx of iron deficiency - iron studies noted - no need for transfusions at this time - cont home ferrous sulfate 8. Right eye blindness - Stable 9. CALLIE -Mild elevation, but stable encourage p.o. intake per nephro recommendations as patient does not want IV inserted - Nephrology consultation appreciated 10. Disposition - CM on board for placement to SNF. Continues to remain stable Result Diagram: 01/17/192 01/17/192 Results 24hrs Laboratory Tests Test 01/17/19 04:52 White Blood Count 6.1 Red Blood Count 2.85 L Hemoglobin 9.6 L Hematocrit 29.7 L Mean Corpuscular Volume 104.2 H Mean Corpuscular Hemoglobin 33.7 H Mean Corpuscular Hemoglobin Concent 32.3 Red Cell Distribution Width 12.4 Platelet Count 260 Mean Platelet Volume 11.6 H Immature Granulocytes % 0.300 Neutrophils % 47.3 Lymphocytes % 39.5 Monocytes % 8.5 Eosinophils % 3.6 Basophils % 0.8 Nucleated Red Blood Cells % 0.0 Immature Granulocytes # 0.020 Neutrophils # 2.9 Lymphocytes # 2.4 Monocytes # 0.5 Eosinophils # 0.2 Basophils # 0.1 Nucleated Red Blood Cells # 0.0 Sodium Level 139 Potassium Level 4.3 Chloride Level 103 Carbon Dioxide Level 26 Anion Gap 10 Blood Urea Nitrogen 45 H Creatinine 1.27 H Est Glomerular Filtrat Rate mL/min 44 L Glucose Level 100 Calcium Level 10.0 Phosphorus Level 6.6 H Magnesium Level 1.5 L Exam/Review of Systems Exam Vitals Vital Signs Date Temp Pulse Resp B/P (MAP) Pulse Ox O2 O2 Flow FiO2 Time Delivery Rate 01/17/19 97.8 84 18 113/79 96 08:02 (90) 01/16/19 Room Air 02:56 Results Results 24hrs Laboratory Tests Test 01/17/19 04:52 White Blood Count 6.1 Red Blood Count 2.85 L Hemoglobin 9.6 L Hematocrit 29.7 L Mean Corpuscular Volume 104.2 H Mean Corpuscular Hemoglobin 33.7 H Mean Corpuscular Hemoglobin Concent 32.3 Red Cell Distribution Width 12.4 Platelet Count 260 Mean Platelet Volume 11.6 H Immature Granulocytes % 0.300 Neutrophils % 47.3 Lymphocytes % 39.5 Monocytes % 8.5 Eosinophils % 3.6 Basophils % 0.8 Nucleated Red Blood Cells % 0.0 Immature Granulocytes # 0.020 Neutrophils # 2.9 Lymphocytes # 2.4 Monocytes # 0.5 Eosinophils # 0.2 Basophils # 0.1 Nucleated Red Blood Cells # 0.0 Sodium Level 139 Potassium Level 4.3 Chloride Level 103 Carbon Dioxide Level 26 Anion Gap 10 Blood Urea Nitrogen 45 H Creatinine 1.27 H Est Glomerular Filtrat Rate mL/min 44 L Glucose Level 100 Calcium Level 10.0 Phosphorus Level 6.6 H Magnesium Level 1.5 L Medications Medication Current Medications IV Flush (NS 3 ml) 3 ml PER PROTOCOL IV ; Start 12/26/18 at 04:30 Ondansetron HCl (Zofran Inj) 4 mg Q6H PRN IV NAUSEA/VOMITING; Start 12/26/18 at 04:30 Acetaminophen (Tylenol Tab) 650 mg Q6H PRN PO .PAIN 1-3 OR TEMP Last administered on 01/13/19 20:25; Admin Dose 650 MG; Start 12/26/18 at 04:30 Docusate Sodium (Colace) 100 mg Q12H PRN PO .CONSTIPATION; Start 12/26/18 at 04:30 Bisacodyl (Dulcolax) 5 mg DAILY PRN PO .CONSTIPATION; Start 12/26/18 at 04:30 Lorazepam (Ativan) 1 mg [id number] PRN IV SEIZURES; Start 12/26/18 at 06:00 Lorazepam (Ativan) 1 mg Q4H PRN IV CONTROL WITHDRAWAL SYMPTOMS Last administer ed on 12/29/18 20:46; Admin Dose 1 MG; Start 12/26/18 at 08:00 Levetiracetam (Keppra) 1,500 mg BID PO Last administered on 01/17/19 08:19; Admin Dose 1,500 MG; Start 12/26/18 at 09:00 Diphenhydramine/ Zinc Oxide (Benadryl 1% Cr) 1 applic Q6 PRN TOP itching; Start 12/26/18 at 10:30 Haloperidol (Haldol) 2 mg Q6H PRN IM agitation; Start 12/26/18 at 16:30 Folic Acid (Folic Acid) 1 mg DAILY PO Last administered on 01/17/19 08:20; Admin Dose 1 MG; Start 12/28/18 at 09:00 Thiamine HCl (Vitamin B1) 100 mg DAILY PO Last administered on 01/17/19 08:20; Admin Dose 100 MG; Start 12/31/18 at 09:00 Ferrous Sulfate (Ferrous Sulfate (Ec)) 325 mg DAILY PO Last administered on 01/17/19 08:21; Admin Dose 325 MG; Start 12/31/18 at 13:00 Phenytoin (Dilantin) 100 mg TID PO Last administered on 01/17/19 12:41; Admin Dose 100 MG; Start 12/31/18 at 13:00 Sertraline HCl (Zoloft) 100 mg DAILY PO Last administered on 01/17/19 08:22; Admin Dose 100 MG; Start 01/02/19 at 09:00 Loratadine (Claritin) 10 mg DAILY PO Last administered on 01/17/19 08:21; Admin Dose 10 MG; Start 01/02/19 at 09:00 Hydrocortisone 1 applic TID PRN TOP ITCHING Last administered on 01/05/19 08:06; Admin Dose 1 APPLIC; Start 01/02/19 at 06:00 Miscellaneous Information (* Miscellaneous Pharmacy Order) PATIENT'S OWN MED IS ... DAILY XX Last administered on 01/11/19 09:48; Admin Dose 1 EA; Start 01/03/19 at 09:00 Cholecalciferol (Vitamin D) 1,000 unit DAILY PO Last administered on 01/17/19 08:20; Admin Dose 1,000 UNIT; Start 01/05/19 at 09:00 Diphenhydramine HCl (Benadryl) 25 mg Q6H PRN PO ITCHING Last administered on 01/16/19 20:38; Admin Dose 25 MG; Start 01/08/19 at 23:00 Docosanol (Abreva) 1 applic 5 TIMES DAILY TOP Last administered on 01/17/19 12:42; Admin Dose 1 APPLIC; Start 01/10/19 at 13:00 Sevelamer Carbonate (Renvela) 1,600 mg WITH MEALS PO Last administered on 01/17/19 12:41; Admin Dose 1,600 MG; Start 01/16/19 at 07:35 Magnesium Oxide (Mag-Ox 400) 400 mg BID PO Last administered on 01/17/19 08:20; Admin Dose 400 MG; Start 01/17/19 at 09:00 SOPHIE POWERS Jan 17, 2019 14:55
[2019-01-17 19:39] VITALS: BP 115/75; PULSE 97; RESP 18
[2019-01-17] MEDS: DIPHENHYDRAMINE 25 MG CAP PO PRN (20:33)
[2019-01-18 02:35] VITALS: BP 123/76; PULSE 92; RESP 18
[2019-01-18] MEDS: THIAMINE 100 MG TAB PO SCH (08:08)
[2019-01-18] MEDS: LEVETIRACETAM 750 MG TAB PO SCH ×2 (08:08→20:38)
[2019-01-18] MEDS: SEVELAMER CARBONATE 800 MG TABLET PO SCH ×3 (08:08→17:13)
[2019-01-18] MEDS: MAGNESIUM OXIDE 400 MG TAB PO SCH ×2 (08:08→20:39)
[2019-01-18] MEDS: CHOLECALCIFEROL 1,000 UNIT TAB PO SCH (08:08)
[2019-01-18] MEDS: FOLIC ACID 1 MG TAB PO SCH (08:09)
[2019-01-18] MEDS: PHENYTOIN 100 MG CAP PO SCH ×3 (08:09→20:39)
[2019-01-18] MEDS: SERTRALINE 100 MG TAB PO SCH (08:09)
[2019-01-18] MEDS: FERROUS SULFATE (EC) 325 MG TAB PO SCH (08:09)
[2019-01-18] MEDS: LORATADINE 10 MG TAB PO SCH (08:09)
[2019-01-18] MEDS: DOCOSANOL 2 GM CREAM TOP SCH ×5 (08:10→20:40)
--- NOTE | 2019-01-18 09:33 | PN ---
DATE: 01/18/2019 SUBJECTIVE: The patient is stable. No events overnight. OBJECTIVE: VITAL SIGNS: Blood pressure is 123/76, respirations 18, pulse 93, temperature 97.9. HEENT: Head is normocephalic. HEART: Regular rate. LUNGS: Show diminished breath sounds at the base. ABDOMEN: Soft, nontender to palpation without rebound or guarding. EXTREMITIES: Negative for clubbing, cyanosis, no edema. DERMATOLOGIC: No rashes. MUSCULOSKELETAL: No joint effusion. NEUROLOGIC: No change in exam. MEDICATIONS: Have been reviewed. LABORATORY DATA: Has been reviewed. IMAGING STUDIES: Have been reviewed. ASSESSMENT AND PLAN: 1. Nonoliguric acute kidney injury with unknown baseline creatinine, possible chronic kidney disease . Etiology of acute kidney injury is secondary to hemodynamics. Renal function is fluctuating but s lowly improving. Continue to monitor. 2. Hypomagnesemia secondary to ETOH use causing renal magnesium wasting. Continue magnesium oxide. 3. Mineral bone disorder. Continue phos binders. Monitor phosphorus levels. 4. ETOH abuse. 5. Encephalopathy, improving. 6. Transaminitis. Continue to monitor. Dictated By: IDANIA LAMBERT/ALVINA Conf#: [id number] DID#: [id number]
--- NOTE | 2019-01-18 13:04 | PN ---
Date/Time of Note Date/Time of Note DATE: 01/18/19 TIME: 13:03 Assessment/Plan VTE Prophylaxis Risk score (from Nsg)>0 risk: 1 SCD applied (from Nsg): No SCD contraindicated: other Pharmacological prophylaxis: other Lines/Catheters IV Catheter Type (from Nrsg): Mid Line Urinary Cath still in place: No Assessment/Plan Hospital Course Subjective Patient feeling well, Objective Physical exam General: Patient is laying in bed and answers questions appropriately Mentation: Patient is alert and oriented 4, Head: Normocephalic atraumatic Eyes: EOMI, pupils reactive to light Neck: Supple, nontender, midline Respiratory: Clear to auscultation bilaterally Cardiovascular: regular rate, no obvious murmurs Gastrointestinal: non-tender to palpation, bowel sounds heard. Neurological: Moves all extremities spontaneously Skin: No new skin lesions Assessment/Plan 1. Lesions on lip-improving - continue on Abreva and advised not to irritate area - appears to be crusting 2. Acute on chronic encephalopathy, most likely metabolic-toxic etiology- improved - patient at baseline and most likely due to history of alcohol use since 18 years old - psych consultation appreciated and patient capable of making her own decisions - Neurology on board and appreciate recommendations - MRI results noted with no acute abnormalities 3. Seizure disorder - continue on Dilantin and Keppra - seizure precautions - Ativan PRN - Appreciate neurology consultation 4. Hypomagnesemia- resolved - continue daily supplements 5. Alcoholic hepatitis- improved - monitor LFTs - continue on folate, and thiamine 6. Alcohol abuse - counseled about cessation - concern for possible Wernicke's encephalopathy. was on high dose thiamine - Librium taper completed and monitor for DTs 7. Normocytic anemia, hx of iron deficiency - iron studies noted - no need for transfusions at this time - cont home ferrous sulfate 8. Right eye blindness - Stable 9. CALLIE -Mild elevation, but stable encourage p.o. intake per nephro recommendations as patient does not want IV inserted - Nephrology consultation appreciated 10. Disposition - CM on board for placement to SNF. Continues to remain stable Result Diagram: 01/18/1944101/18/19441 Results 24hrs Laboratory Tests Test 01/18/19 04:42 White Blood Count 6.0 Red Blood Count 3.05 L Hemoglobin 10.4 L Hematocrit 31.5 L Mean Corpuscular Volume 103.3 H Mean Corpuscular Hemoglobin 34.1 H Mean Corpuscular Hemoglobin Concent 33.0 Red Cell Distribution Width 12.4 Platelet Count 274 Mean Platelet Volume 11.4 H Immature Granulocytes % 0.300 Neutrophils % 45.5 Lymphocytes % 41.9 Monocytes % 8.2 Eosinophils % 3.3 Basophils % 0.8 Nucleated Red Blood Cells % 0.0 Immature Granulocytes # 0.020 Neutrophils # 2.7 Lymphocytes # 2.5 Monocytes # 0.5 Eosinophils # 0.2 Basophils # 0.1 Nucleated Red Blood Cells # 0.0 Sodium Level 139 Potassium Level 4.6 Chloride Level 103 Carbon Dioxide Level 27 Anion Gap 9 Blood Urea Nitrogen 47 H Creatinine 1.28 H Est Glomerular Filtrat Rate mL/min 43 L Glucose Level 98 Calcium Level 10.0 Phosphorus Level 6.3 H Magnesium Level 1.6 L Exam/Review of Systems Exam Vitals Vital Signs Date Temp Pulse Resp B/P (MAP) Pulse Ox O2 O2 Flow FiO2 Time Delivery Rate 01/18/19 97.9 92 18 123/76 93 02:35 (92) 01/16/19 Room Air 02:56 Intake and Output 01/17/19 01/17/19 01/18/19 1515:00 23:00 07:00 IntakeIntake Total 360 ml BalanceBalance 360 ml Results Results 24hrs Laboratory Tests Test 01/18/19 04:42 White Blood Count 6.0 Red Blood Count 3.05 L Hemoglobin 10.4 L Hematocrit 31.5 L Mean Corpuscular Volume 103.3 H Mean Corpuscular Hemoglobin 34.1 H Mean Corpuscular Hemoglobin Concent 33.0 Red Cell Distribution Width 12.4 Platelet Count 274 Mean Platelet Volume 11.4 H Immature Granulocytes % 0.300 Neutrophils % 45.5 Lymphocytes % 41.9 Monocytes % 8.2 Eosinophils % 3.3 Basophils % 0.8 Nucleated Red Blood Cells % 0.0 Immature Granulocytes # 0.020 Neutrophils # 2.7 Lymphocytes # 2.5 Monocytes # 0.5 Eosinophils # 0.2 Basophils # 0.1 Nucleated Red Blood Cells # 0.0 Sodium Level 139 Potassium Level 4.6 Chloride Level 103 Carbon Dioxide Level 27 Anion Gap 9 Blood Urea Nitrogen 47 H Creatinine 1.28 H Est Glomerular Filtrat Rate mL/min 43 L Glucose Level 98 Calcium Level 10.0 Phosphorus Level 6.3 H Magnesium Level 1.6 L Medications Medication Current Medications IV Flush (NS 3 ml) 3 ml PER PROTOCOL IV ; Start 12/26/18 at 04:30 Ondansetron HCl (Zofran Inj) 4 mg Q6H PRN IV NAUSEA/VOMITING; Start 12/26/18 at 04:30 Acetaminophen (Tylenol Tab) 650 mg Q6H PRN PO .PAIN 1-3 OR TEMP Last administered on 01/13/19 20:25; Admin Dose 650 MG; Start 12/26/18 at 04:30 Docusate Sodium (Colace) 100 mg Q12H PRN PO .CONSTIPATION; Start 12/26/18 at 04:30 Bisacodyl (Dulcolax) 5 mg DAILY PRN PO .CONSTIPATION; Start 12/26/18 at 04:30 Lorazepam (Ativan) 1 mg Q2QNFHKE PRN IV SEIZURES; Start 12/26/18 at 06:00 Lorazepam (Ativan) 1 mg Q4H PRN IV CONTROL WITHDRAWAL SYMPTOMS Last administered on 12/29/18at 20:46; Admin Dose 1 MG; Start 12/26/18 at 08:00 Levetiracetam (Keppra) 1,500 mg BID PO Last administered on 01/18/19 08:08; Admin Dose 1,500 MG; Start 12/26/18 at 09:00 Diphenhydramine/ Zinc Oxide (Benadryl 1% Cr) 1 applic Q6 PRN TOP itching; Start 12/26/18 at 10:30 Haloperidol (Haldol) 2 mg Q6H PRN IM agitation; Start 12/26/18 at 16:30 Folic Acid (Folic Acid) 1 mg DAILY PO Last administered on 01/18/19 08:09; Admin Dose 1 MG; Start 12/28/18 at 09:00 Thiamine HCl (Vitamin B1) 100 mg DAILY PO Last administered on 01/18/19 08:08; Admin Dose 100 MG; Start 12/31/18 at 09:00 Ferrous Sulfate (Ferrous Sulfate (Ec)) 325 mg DAILY PO Last administered on 01/18/19 08:09; Admin Dose 325 MG; Start 12/31/18 at 13:00 Phenytoin (Dilantin) 100 mg TID PO Last administered on 01/18/19at 12:04; Admin Dose 100 MG; Start 12/31/18 at 13:00 Sertraline HCl (Zoloft) 100 mg DAILY PO Last administered on 01/18/19 08:09; Admin Dose 100 MG; Start 01/02/19 at 09:00 Loratadine (Claritin) 10 mg DAILY PO Last administered on 01/18/19 08:09; Admin Dose 10 MG; Start 01/02/19 at 09:00 Hydrocortisone 1 applic TID PRN TOP ITCHING Last administered on 01/05/19 08:06; Admin Dose 1 APPLIC; Start 01/02/19 at 06:00 Miscellaneous Information (* Miscellaneous Pharmacy Order) PATIENT'S OWN MED IS ... DAILY XX Last administered on 01/11/19 09:48; Admin Dose 1 EA; Start 01/03/19 at 09:00 Cholecalciferol (Vitamin D) 1,000 unit DAILY PO Last administered on 01/18/19 08:08; Admin Dose 1,000 UNIT; Start 01/05/19 at 09:00 Diphenhydramine HCl (Benadryl) 25 mg Q6H PRN PO ITCHING Last administered on 01/17/19 20:33; Admin Dose 25 MG; Start 01/08/19 at 23:00 Docosanol (Abreva) 1 applic 5 TIMES DAILY TOP Last administered on 01/18/19 12:05; Admin Dose 1 APPLIC; Start 01/10/19 at 13:00 Sevelamer Carbonate (Renvela) 1,600 mg WITH MEALS PO Last administered on 01/18/19 12:04; Admin Dose 1,600 MG; Start 01/16/19 at 07:35 Magnesium Oxide (Mag-Ox 400) 400 mg BID PO Last administered on 01/18/19 08:08; Admin Dose 400 MG; Start 01/17/19 at 09:00 SOPHIE POWERS Jan 18, 2019 13:04
[2019-01-18] MEDS ORDERED: SOD CHLORIDE 0.9% 1,000 ML IV SCH (13:30)
[2019-01-18 14:00] VITALS: BP 104/61; PULSE 89; RESP 16
[2019-01-18 20:03] VITALS: BP 114/74; PULSE 80; RESP 20
[2019-01-19 01:46] VITALS: BP 127/87; PULSE 81; RESP 18
[2019-01-19] MEDS: DIPHENHYDRAMINE 25 MG CAP PO PRN (03:03)
--- NOTE | 2019-01-19 08:18 | PN ---
DATE: 01/19/2019 SUBJECTIVE: The patient is stable, no events overnight. OBJECTIVE: VITAL SIGNS: Blood pressure is 127/87, respiration is 18, pulse 81, temperature 97.2. HEENT: Head is normocephalic. NECK: Supple. HEART: Regular rate. LUNGS: Show diminished breath sounds at the base. ABDOMEN: Soft, nontender to palpation without rebound or guarding. EXTREMITIES: Negative for clubbing, cyanosis, no edema. DERMATOLOGIC: No rashes. MUSCULOSKELETAL: No joint effusion. NEUROLOGIC: No change in exam. MEDICATIONS: Have been reviewed. LABORATORY DATA: Has been reviewed. IMAGING STUDIES: Have been reviewed. ASSESSMENT AND PLAN: 1. Nonoliguric acute kidney injury with unknown baseline creatinine, possible chronic kidney disease . Etiology of acute kidney injury is secondary to hemodynamics. Renal function has been fluctuating . Continue to monitor. 2. Hypomagnesemia secondary to ETOH use causing renal magnesium wasting. Continue to monitor and re plete. 3. Mineral bone disorder, monitor calcium and phosphorus levels. 4. ETOH abuse. Continue to monitor. 5. Encephalopathy, improving. 6. Transaminitis. Continue to monitor. Dictated By: IDANIA MAHARAJ DO NR/NTS Conf#: [id number] DID#: [id number] CC: ROSA HALL MD;*End*
[2019-01-19 08:22] VITALS: BP 119/79; PULSE 81; RESP 16
[2019-01-19] MEDS: PHENYTOIN 100 MG CAP PO SCH ×2 (08:40→12:36)
[2019-01-19] MEDS: CHOLECALCIFEROL 1,000 UNIT TAB PO SCH (08:40)
[2019-01-19] MEDS: SEVELAMER CARBONATE 800 MG TABLET PO SCH ×2 (08:40→12:35)
[2019-01-19] MEDS: MAGNESIUM OXIDE 400 MG TAB PO SCH (08:40)
[2019-01-19] MEDS: FERROUS SULFATE (EC) 325 MG TAB PO SCH (08:40)
[2019-01-19] MEDS: SERTRALINE 100 MG TAB PO SCH (08:40)
[2019-01-19] MEDS: LEVETIRACETAM 750 MG TAB PO SCH (08:40)
[2019-01-19] MEDS: THIAMINE 100 MG TAB PO SCH (08:40)
[2019-01-19] MEDS: LORATADINE 10 MG TAB PO SCH (08:40)
[2019-01-19] MEDS: DOCOSANOL 2 GM CREAM TOP SCH ×2 (08:41→12:36)
[2019-01-19] MEDS: FOLIC ACID 1 MG TAB PO SCH (08:41)
--- NOTE | 2019-01-19 11:17 | DS ---
Date/Time of Note Date/Time of Note DATE: 01/19/19 TIME: 11:17 Discharge Summary Admission/Discharge Info Admit Date/Time Dec 26, 2018 at 04:04 Discharge Date/Time Patient Condition: Stable Hospital Course Patient is a female the past medical history is significant for seizure disorder and alcoholism who presents to [facility] for acute encephalopathy. Patient was seen by neurology for seizure and patient's medications were adjusted. Patient does have a chronic history of alcoholism and with her seizure history has significant debility. Patient was kept inpatient in order to find placement as patient was not a safe discharge to home. Currently patient is doing very well with no acute complaints. Patient is continuing Abreva for her herpes outbreak on her lip. Patient was also seen by nephrology due to her chronic alcoholism and electrolyte deficiencies. Patient was continued on magnesium supplements as well as other supplements. Patient does have seizure disorder but now doing very well on Dilantin and Keppra. Patient needs to have close monitoring of her renal function as her kidneys are stable however are not at baseline. Patient's baseline is normal limits, current renal function is 1.28 and is hovering at that number for a few days. Patient will need repeat renal panel blood test within a few days to ensure continued resolution. Patient is safe for discharge Discharge diagnoses Acute on chronic encephalopathy, resolved Seizure disorder Hypomagnesemia Alcoholic hepatitis, resolved Alcohol abuse, resolving Anemia, iron deficiency Right eye blindness, stable Acute kidney injury, stable Herpes on lips, resolving Home Meds Reported Medications Allopurinol* (Allopurinol*) 300 Mg Tablet, 300 MG PO DAILY for 90 Days, #90 TAB 12/26/18 Thiamine* (Thiamine*) 50 Mg Tablet, 50 MG PO DAILY for 90 Days, #90 TAB 12/26/18 Omeprazole* (Omeprazole*) 20 Mg Capsule.dr, 20 MG PO BID for 90 Days, #180 CAP 12/26/18 Sertraline Hcl* (Sertraline Hcl*) 100 Mg Tablet, 100 MG PO QHS for 90 Days, #90 12/26/18 Loratadine (Allergy) 10 Mg Tablet, 10 MG PO DAILY for 30 Days, #30 TAB 12/26/18 Folic Acid* (Folic Acid*) 1 Mg Tablet, 1 MG PO DAILY, TAB 09/13/14 Levetiracetam* (Keppra*) 750 Mg Tablet, 1500 MG PO BID, TAB 09/13/14 Phenytoin* Sodium Extended (Dilantin*) 100 Mg Capsule, 100 MG PO BID 04/13/12 Primary Care Provider Care Physician No Primary Time spent on discharge: > 30 minutes SOPHIE POWERS Jan 19, 2019 11:17
[2019-01-19 13:58] VITALS: BP 130/83; PULSE 80; RESP 15
== END 2019-01-19 15:00 | DRG 92 ==
LOC: E/R 23:46 → 6WM 12-26 04:04 → PP2 12-31 05:11 → MS3 01-02 00:30
PROVIDERS: ADMIT Family Medicine; ATTEND Internal Medicine
DX: G92 Toxic encephalopathy (principal); N17.9 Acute kidney failure, unspecified; E87.1 Hypo-osmolality and hyponatremia; F33.9 Major depressive disorder, recurrent, unspecified; G40.909 Epilepsy, unspecified, not intractable, without status epilepticus; K70.10 Alcoholic hepatitis without ascites; F10.10 Alcohol abuse, uncomplicated; G93.49 Other encephalopathy; H54.61 Unqualified visual loss, right eye, normal vision left eye; E87.5 Hyperkalemia; E83.42 Hypomagnesemia; D50.9 Iron deficiency anemia, unspecified; B00.1 Herpesviral vesicular dermatitis; Z59.0 Homelessness
CPT/HCPCS: 36415; 70450; 70551; 71045; 76775; 80048; 80053; 80061; 80069; 80177; 80185; 80307; 81001; 81003; 82043; 82140; 82306; 82652; 83036; 83540; 83735; 83970; 84100; 84155; 84300; 84443; 84484; 85025; 85610; 85730; 93306; 96374; 97110; 97116; 97162; 97167; 97530; 97535; J1165; J1200; J2060; J3411; J3475; J3480; J7030; J7040; J7050